=== PATIENT | male | born 1945 | race Caucasian/White ===

== ENCOUNTER 2023-09-29 09:27 | Outpatient (CLI) | payer MEDICARE, OTHER, SELFPAY ==
[2023-09-29 16:50] LABS: Anion Gap 11 mmol/L (8-16); Blood Urea Nitrogen 25 mg/dL (9-20); Calcium 8.9 mg/dL (8.4-10.2); Carbon Dioxide 22 mmol/L (22-30); Chloride 105 mmol/L (98-107); Estimated Glomerular Filt Rate 42; Glucose 110 mg/dL (65-110); Potassium 5.2 mmol/L (3.4-5.0); Sodium 138 mmol/L (137-145)
== END 2023-09-29 09:28 | disposition home or self-care (01) ==
LOC: ANHVADLAB 09:33 → ANHWCLAB 10:06
PROVIDERS: PCP Nurse Practitioner Family; Visit Provider Nurse Practitioner Family
DX: E11.9 Type 2 diabetes mellitus without complications (principal)
CPT/HCPCS: 36415; 80048

== ENCOUNTER 2025-02-28 10:02 | Emergency (ER) | payer MEDICARE, OTHER, SELFPAY ==
[2025-02-28 10:10] VITALS: BP 134/66; PULSE 80; RESP 16; TEMP 36.7; O2SAT 96
--- NOTE | 2025-02-28 10:17 | ED.WOUNDLAC ---
HPI - Wound/Laceration General Chief Complaint: Wound/Laceration Stated Complaint: Cat Bite/Left Thumb Time Seen by Provider: 02/28/25 10:28 Source: patient and RN notes reviewed Mode of arrival: ambulatory Limitations: dementia History of Present Illness HPI narrative: 79-year-old male presents with concern for cat bite to the 1st digit of his left hand. Reports the cat bit him last night, it is her daughter's cat. He reports he cleaned it and dressed it but it continued to bleed slightly. He reports it throbs overnight. Related Data Home Medications ?Medication ?Instructions ?Recorded ?Confirmed ?Last Taken ?Type lovastatin 40 mg tablet 40 mg PO QPM 03/19/20 02/28/25 Unknown History propafenone 150 mg tablet 150 mg PO TID 03/19/20 02/28/25 Unknown History rivaroxaban 20 mg tablet (Xarelto) 20 mg PO DAILY 03/19/20 02/28/25 Unknown History carvedilol 6.25 mg tablet 12.5 mg PO Q12H 02/26/21 02/28/25 Unknown History lisinopril 10 mg tablet 20 mg PO DAILY 04/22/22 02/28/25 Unknown History escitalopram oxalate 10 mg tablet 10 mg PO DAILY 07/29/22 02/28/25 Unknown History empagliflozin 25 mg tablet 25 mg PO DAILY 11/25/22 02/28/25 Unknown History Allergies Allergy/AdvReac Type Severity Reaction Status Date / Time No Known Allergies Allergy Verified 02/28/25 10:06 Review of Systems Review of Systems: CONSTITUTIONAL: Denies malaise, chills, sweats, or fever. EYES: Denies redness, or discharge. ENT: Denies rhinorrhea, congestion, swollen lips, swollen tongue CARDIOVASCULAR: Denies chest pain, palpitations, or edema. RESPIRATORY: Denies cough or dyspnea. GASTROINTESTINAL: Denies abdominal pain, nausea, vomiting SKIN: Reports laceration to the 1st digit of left hand caused by cat bite. Denies purulent drainage, vesicles, bullae, numbness, pain beyond proportion MUSCULOSKELETAL: Denies joint pain or myalgia. NEUROLOGIC: Denies headache. All systems reviewed & are unremarkable except as noted in HPI and below PMFSH Past Medical History Medical History Skin cancer basal cell carcinoma Atrial fibrillation Peripheral neuropathy Pure hypercholesterolemia, unspecified Type 2 diabetes mellitus with hyperglycemia, without long-term current use of insulin Hypertension Visual loss Hearing loss Surgical History Surgical History History of vasovasostomy Status post surgical removal of malignant neoplasm of skin x2 Family History Family History Father Family history of diabetes mellitus in first degree relative Family history of heart disease in male family member before age 55 Mother Family history of diabetes mellitus in first degree relative Sibling Family history of diabetes mellitus in first degree relative Social History Social History Smoking status: Never smoker Second hand tobacco smoke exposure: No Alcohol intake: current Alcohol use details: special occasions Substance use: never Do You Feel Safe in your Home?: Yes Lack of Transportation: No Lack of Food: Never True Current Housing: I Have Housing Concerned About Future Housing: No Difficulty Paying Gas/Electric Bills: No Difficulty Paying for Meds: No Currently Unemployed: No Education: Bachelor's Degree Difficulty w/ Childcare or Family Care: No Comments At time of signature, agree with nursing past medical, surgical, social and family history. There is no relevant family history pertinent to the presenting complaint Exam Narrative: GENERAL: Well-appearing, well-nourished, and in no acute distress. HEAD: Normocephalic, atraumatic. EYES: PERRLA, conjunctivae clear ENT: Mucous membranes moist. NECK: Supple. No lymphadenopathy CHEST: Clear to auscultation. No respiratory distress. HEART: Regular rate and rhythm. SKIN: Warm, dry. V-shaped laceration noted to the lateral 1st digit of the left hand with small amount of bleeding, laceration is not gaping, slightly approximated.. No surrounding Erythema, induration, tenderness, warmth with sharp margins noted. No vesicles, bullae, necrosis, ecchymosis, crepitus noted. NEURO: Alert and oriented x3. PSYCH: Normal mood and affect Course Course Emergency Course: Surgicel applied to wound until hemostasis achieved. Dressing applied. Patient is aware of diagnosis, understands and agrees to treatment plan. Anticipatory guidance given. Patient agrees to follow-up as directed and is aware of reasons to seek care at the emergency department. Portions of this record may have been created with voice recognition software Level of Care: Express Care Visit Vital Signs Vital signs: Vital Signs Temperature 98.1 F 02/28/25 10:10 Pulse Rate 80 02/28/25 10:10 Respiratory Rate 16 02/28/25 10:10 Blood Pressure 134/66 02/28/25 10:10 Pulse Oximetry 96 02/28/25 10:10 Oxygen Delivery Room Air 02/28/25 10:10 Temperature 98.1 F 02/28/25 10:10 Pulse Rate 80 02/28/25 10:10 Respiratory Rate 16 02/28/25 10:10 Blood Pressure 134/66 02/28/25 10:10 Pulse Oximetry 96 02/28/25 10:10 Oxygen Delivery Room Air 02/28/25 10:10 Reviewed. Critical Care Time Critical Care Time Critical Care Time: No Discharge Plan Discharge Clinical Impression: Cat bite Patient Disposition: Home Condition: Stable Instructions: Antibiotic Form, Animal Bite (ED) Additional Instructions: Leave the dressing in place for 24 hours. In 24 hours remove the outer layer of the dressing, soak your finger in warm soapy water to remove the inner layer of the dressing, do not pull it off as this may cause rebleeding. Elevating your hand will help prevent or stop bleeding, applying pressure for at least 15 minutes will help stop bleeding. If you are unable to stop bleeding despite any of these interventions you should go to the emergency room. If you notice any signs of infection such as redness, swelling, worsening pain you should return for reevaluation. Once your wound is stopped bleeding you should wash it gently with soap and water twice daily, apply antibiotic ointment twice daily. Keep your wound clean and dry, covered with a bandage until healed. Take antibiotic as directed. Please follow-up your primary care doctor for further evaluation of your finger. The urgent concerns such as increased redness, swelling, pain, purulence drainage despite taking antibiotics he should go to the emergency room Patient Language: Romanian Prescriptions: New amoxicillin-pot clavulanate 875-125 mg tablet 1 tablet PO Q12H 10 Days Qty: 20 0RF No Action empagliflozin 25 mg tablet 25 mg PO DAILY Ozempic 1 mg/dose (4 mg/3 mL) pen injector 1 mg subcut WEEKLY 90 Days Qty: 9 4RF Xarelto 20 mg tablet 20 mg PO DAILY Rx Instructions: must administer with evening meal propafenone 150 mg tablet 150 mg PO TID Rx Instructions: space evenly during waking hours lovastatin 40 mg tablet 40 mg PO QPM carvedilol 6.25 mg tablet 12.5 mg PO Q12H Rx Instructions: must administer with a meal/food lisinopril 10 mg tablet 20 mg PO DAILY escitalopram oxalate 10 mg tablet 10 mg PO DAILY metformin 500 mg tablet 500 mg PO BID Qty: 180 2RF Rx Instructions: WITH MEALS (DME) FreeStyle Lite Strips Strip See Rx Instructions .ROUTE .COMPLEX Qty: 100 1RF Dose Instruction: USE TO CHECK BLOOD SUGAR TWICE DAILY Rx Instructions: USE TO CHECK BLOOD SUGAR Once DAILY Follow-up/Referrals: PHYSICIAN NOT ON STAFF,NONSTAFF [Primary Care Provider] - Time of Disposition: 10:42
--- OUTSIDE RECORDS SUMMARY | 2025-02-28 11:06 | XMS_ITS | Encounter Summary ---
Author Name [facility] [place] [facility] [place] [facility] [place] Address [address] [place] [address] Care Team Providers Care Mixer Operator Tablets Name Role Phone SULMA GARRETT Primary Care [...] MEDIC ARE SUPPL EMENT Nov 23, 2010 [id number] [phone] PEGGY GUERRA PATIENT MEDICARE (WNR) MEDICARE (M) PART A Oct 23, 2010 PART A [id number] [phone] PEGGY GUERRA PATIENT MEDICARE (WNR) MEDICARE (M) PART B Oct 23, 2010 PART B [id number] [phone] PEGGY GUERRA PATIENT MEDICARE (WNR) MEDICARE (M) PART A Oct 23, 2010 PART A [id number] [phone] PEGGY GUERRA PATIENT MEDICARE (WNR) MEDICARE (M) PART B Oct 23, 2010 PART B [id number] [phone] PEGGY GUERRA PATIENT Selected Encounter This section includes the information on record at [place] for the Encounter. 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 Date/Time Primary/Secondary Diagnosis Diagnosis Name Provider Source Jun 24, 2024 01:21 PM PRIMARY Anxiety disorder due to known physiological condition INDIA MOHAN Linda [facility] Jun 24, 2024 01:21 PM SECONDARY Adjustment disorder with mixed anxiety and depressed mood INDIA MOHAN Linda [facility] Plan of Treatment: Future Appointments (+ 6 months) and Future Tests (+/- 45 days) The Plan of Treatment section includes future care activities for the patient [facility] [place] [facility] This section includes future appointments and future orders which are active, pending or scheduled. Future Appointments This section includes appointments that were scheduled to occur 6 months from the date of the Encounter, up to a maximum of 20 appointments. The data comes from all [place] treatment facilities. Appointment Date/Time Appointment Type Appointme nt Facility Name Aug 15, 2024 11:00 AM AMBULATORY - MEDICINE [facility] Oct 10, 2024 11:30 AM AMBULATORY - MEDICINE [facility] Dec 05, 2024 11:00 AM AMBULATORY - MEDICINE [facility] Social History: Smoking Status (Most current) and Tobacco Use (All prior to encounter date) This section includes the most current, and the historical, smoking and tobacco- related health factors from the [facility] facility where the Encounter took place. Current Smoking Status This section includes the most current smoking, or tobacco-related health factor, from the [facility] facility where the Encounter took place. Date/Time Current Smoking Status Comment Facil ity Oct 28, 2022 10:00 AM [place]-TOBACCO NEVER USED [facility] Tobacco Use History This section includes a history of the smoking, or tobacco-related health factors, that were collected on or before the date of the Encounter. The data comes from the [place] facility where the Encounter took place. Date/Time Smoking Status/Tobacco Use Comment F acility Oct 29, 2021 10:00 AM [place]-TOBACCO NEVER USED [facility] Oct 23, 2020 10:00 AM VA-TOBACCO FORMER USER [facility] Oct 23, 2020 10:00 AM VA-TOBACCO QUIT [address] [facility] Oct 10, 2019 03:41 PM VA-TOBACCO FORMER USER [facility] Oct 10, 2019 03:41 PM VA-TOBACCO QUIT [address] [facility] Advance Directives: All historical and current Section Date Range: From patient's date of to the date document was created. This section includes ALL of a patient's completed or amended [place] Advance and Rescinded Directives. The entries below indicate that a directive exists for the patient, but an actual copy is not included with this document. The data comes from all [place] facilities. Date Advance Directives Provider Source Oct 28, 2019 ADVANCE DIRECTIVE DISCUSSION Onur SHERMAN [facility] Encounter Notes: All associated encounter notes This section contains the clinical notes associated to the Encounter. Date/Time Encounter Note(s) Provider Source Jun 20, 2024 04:03 PM PSYCHOLOGY OUTPATI ENT NOTE: LOCAL TITLE: PRIMARY CARE PSYCHOLOGY NOTE [facility] STANDARD TITLE: PSYCHOLOGY OUTPATIENT NOTE DATE OF NOTE: JUN 20, 2024@16:03 ENTRY DATE: JUN 20, 2024@16:03:50 AUTHOR: INDIA MOHAN EXP COSIGNER: URGENCY: STATUS: COMPLETED Follow-up Template NAME: NAVEEN GUERRA DATE OF : Oct TIME SPENT WITH PATIENT: 30 minutes DIAGNOSIS BEING TREATED: MDD, D/T Hearing Loss Adjustment Disorder w/Anxiety and depression CPT Code: 72801 NATURE OF ENCOUNTER: follow up visit SESSION FORMAT: [X] [id number] [ ] Video Telehealth [ ]Phone Confirmed [place]'s location and phone number for virtual appointment. [ ]Yes [ ]N/A NOTE: Use separate CVT template, if appropriate SESSION NUMBER: 10 INTERVENTION/TREATMENT PROVIDED [X] [place] [facility] [X] Shared [...] to better understand current presenting concerns. - [place] strategies to promote healthy lifestyle choices - Provided psychoeducation about CBT and the connection of thoughts and behaviors. RELEVANT HISTORICAL DEVELOPMENTS SINCE LAST CONTACT: NOTE: Describe relevant historical developments below Alanna indicated he is starting to feel the impact of working hard in his chart. Celeste reported he is unable to work as long as hard as he used to, given now it takes him several days to recover. This provider discussed with [place] the importance of pacing, to minimize the length of time needed for recovery. Briefly discussed 's finances and his inability to quit working due to significant financial strain. This provider discussed briefly the option of pension. Alanna on the surface meets criteria for a VA pension and was accepting of the application. indicated within the next 8 months his pension from his [employer] career will be ending. Celeste is unsure what he and his will do next. reported his has been recovering well. He reported this is also a major source of stress for him given her frail condition. Discussed the importance of having balance with the pleasurable activities and work. 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 RTC entered for follow-up. ASSESSMENT MEASURES USED: [ ] Measure in Mental Health Plant Operator/Shift Supervisor. See accompanying Mental Health Diagnostic Study for details. [ ] Measure(s) sent via [facility], electronically following visit. [place] agrees to asynchronous electronic administration; when returned, measure results will be included in a note or addendum in CPRS [ ] Other Measures: Measure: Score: Measure: Score: [ ] N/A: Not administered this session Date/Score of last administration: [X]Functional/Symptom Assessment: Symptom(s)/Function(s) tracked by mood on scale of 1-10 Changes in frequency, intensity or duration since last visit: 5- slight regression, described as a overwhelmed . Collaboratively discussed outcomes related to assessment and [...] GOAL: RESPONSE TO INTERVENTIONS: Veterans participation/engagement: [X]The [place] participated actively in the current interventions. [ ]Other: The continues to consent to the current plan of care: Yes Comments: RISK ASSESSMENT: [X] NO CHANGE IN RISK FACTORS Related to Suicide or Homicide. [place] did not report any current suicidal/homicidal ideation, plan, or intent. did not appear to be at imminent risk for suicide or homicide at this time and is considered sustainable at the current level of care. [ ] NEW/UPDATED RISK ASSESSMENT: -RELEVANT RISK AND PROTECTIVE FACTORS: -IDEATION: [ ] denied current suicidal or homicidal ideation, plan, or intent. [x ] Suicidal or homicidal ideation/behavior WAS identified: vet endorsed fleeting ideations in the context of his -CLINICAL JUDGMENT AND DISPOSITION: [ ] In consideration of relevant risk and protective factors, the [place] did NOT appear to be at imminent risk for suicide or homicide at this time and IS sustainable at the current level of care. -Comments: [ ] [place] IS considered to be at INCREASED RISK for suicide or homicide based upon: -Actions/interventions taken to address risk and prevent harm include: -Emergency protocols initiated were: -Comments: ASSIGNED WORK: RTC entered for ongoing support. COLLABORATIVE RECOMMENDATIONS/PLAN: Collaboratively discussed outcomes related to assessment and treatment progress. Based on this discussion: Vet agreed to ongoing services. /roberto/ [place] Mohan Psy.D. Staff Psychologist Signed: 06/24/2024 13:21 INDIA MOHAN [facility]
--- OUTSIDE RECORDS SUMMARY | 2025-02-28 11:07 | XMS_ITS | Clinical Summary ---
Author Organization [facility] Address [address] [place] [address] Care Team Providers Care Communication Lecturer Name Role Phone Jose Melton MD Unavailable [phone] Yonas Chapa MD Primary Care Provider [phone] Source Comments [facility],non-owned Affiliates and Associated Physician Practices is [facility] consisting of ambulatory clinics and hospital sitesin [place], [place], [place] and [place]. This disclosure is being madepursuant to the Care Everywhere program and may not contain all information available regarding this patient. Last updated 18.[facility] Allergies No known active allergies Medications * Be aware that medications may not be up to date on this document. Alwaysverify current medications with the patient. Medication Sig Dispensed Refills Start Date End Date Status glyburide-metformi n (GLUCOVANCE) 2.5-500 MG tablet Take 1 (one) tablet by mouth 2 times daily with morning and evening meal Take with food. Active lisinopril (PRINIVIL; ZESTRIL) 10 MG tablet Take 2 (two) tablets by mouth once daily Active pravastatin (PRAVACHOL) 40 MG tablet Take 1 (one) tablet by mouth once daily Active multivitamin daily (THERAGRAN) tablet Take 1 (one) tablet by mouth daily with food Active glimepiride (AMARYL) 2 MG tablet Take 1 (one) tablet by mouth daily with breakfast Active lovastatin (MEVACOR) 40 MG tablet Take 1 (one) tablet by mouth at bedtime Active metFORMIN (GLUCOPHAGE) 500 MG tablet Take 1 (one) tablet by mouth 2 times daily with morning and evening meal Active nabumetone (RELAFEN) 750 MG tablet TAKE ONE TABLET BY MOUTH TWICE DAILY 180 tablet 3 09/11/2017 Active Additional Information Patient not taking.Reported on 07/18/2024 rivaroxaban (XARELTO) 20 MG tablet TAKE ONE TABLET BY MOUTH ONCE A DAY TO THIN BLOOD. TAKE WITH FOOD. 11/01/2019 Active amiodarone (CORDARONE) 200 MG tablet TAKE ONE-HALF TABLET BY MOUTH ONCE A DAY 10/25/2019 Active carvedilol (COREG) 12.5 MG tablet TAKE ONE-HALF TABLET BY MOUTH TWICE A DAY 10/25/2019 Active fluticasone propionate (FLONASE) 50 MCG/ACT nasal spray INSTILL 1 SPRAY IN EACH NOSTRIL ONCE A DAY 10/25/2019 Active propafenone (RYTHMOL) 150 MG tablet Take 1 (one) tablet by mouth 3 times daily 08/07/2020 Active Semaglutide(0.25 or 0.5MG/DOS) 2 MG/3ML Solution Pen-injector SEMAGLUTIDE 0.25MG/0.375ML INJ,SOLN,PEN,3ML Active INJECT 0.5MG UNDER THE SKIN EVERY WEEK FOR DIABETES Mar 09, 2024 1 Mar 10, 2025 [id number] May 30, 2024 STEVE WALKER [facility] 03/09/2024 Active FREESTYLE LITE STRIPS test strip USE TO MONITOR BLOOD SUGAR ONCE DAILY 06/28/2024 Active escitalopram (Lexapro) 20 MG tablet Take 0.5 (one-half) tablet by mouth 03/31/2024 Active empagliflozin (Jardiance) 25 MG tablet Take 1 (one) tablet by mouth 10/27/2023 Active Hospital, Clinic, or Other Facility Administered Medication Ordered Dose Route Frequency Start Date End Date Status triamcinolone acetonide (Kenalog-40) injection 20 mgIndications:Primary osteoarthritis of first carpometacarpal joint of right hand 20 mg IX ONCE 02/21/2025 02/21/2025 Ended Active Problems Problem Noted Date Diagnosed Date Obstructive sleep apnea syndrome 09/05/2020 Atrial fibrillation 09/05/2020 Health education 09/05/2020 Encounter for therapeutic drug level monitoring 09/05/2020 Benign essential hypertension 09/05/2020 Hyperlipidemia 09/05/2020 Obesity 09/05/2020 Sensory hearing loss 09/05/2020 Hypertension 04/08/2014 Overview (09/05/2020): HYPERTENSION NOS Pure hypercholesterolemia 04/08/2014 Overview (09/05/2020): PURE HYPERCHOLESTEROLEM Type 2 diabetes mellitus 04/08/2014 Overview (09/05/2020): DMII WO CMP NT [facility] Encounters Date Type Department Care Team Description 02/21/2025 1:40 PM CDT Office Visit [facility] [address] [place] [address] Nadja Madrid MD Primary osteoarthritis of first carpometacarpal joint of right hand (Primary Dx) 01/16/2025 11:30 AM MYSTERY SHOPPER Office Visit [facility] [address] [place] [address] Veronika Ortega PA Primary osteoarthritis of right knee (Primary Dx) from Last 3 Months Social History Tobacco Use Types Packs/Day Years Used Date Smoking Tobacco: Never Smokeless Tobacco: Never Tobacco Cessation:Counseling Given: Not Answered Alcohol Use Standard Drinks/Week Comments No 0 (1 standard drink = 0.6 oz pur e alcohol) PHQ-2 Answer Date Recorded Patient Health Questionnaire-2 Score 3 07/18/2024 Sex and Gender Information Value Date Recorded Sex Assigned at Not on file Gender Identity Not on file Sexual Orientation Not on file Last Filed Vital Signs Vital Sign Reading Time Taken Comments Blood Pressure 160/80 09/05/2020 8:04 AM CDT Pulse 68 09/05/2020 8:04 AM CDT Temperature 36.4 C (97.6 F) 12/29/2013 9:00 AM MYSTERY SHOPPER Respiratory Rate 20 12/29/2013 9:25 AM MYSTERY SHOPPER Oxygen Saturation 92% 12/29/2013 9:25 AM MYSTERY SHOPPER Inhaled Oxygen Concentration - - Weight 95.3 kg (210 lb) 07/18/2024 9:36 AM CDT Height 172.7 cm (5' 8 ) 07/18/2024 9:36 AM CDT Body Mass Index 31.93 07/18/2024 9:36 AM CDT Plan of Treatment Upcoming Encounters Date Type Department Care Team (Late st Contact Info) Description 04/24/2025 11:30 AM CDT Office Visit [facility] [address] [place] [address] Veronika Ortega, PA [address] [place] [address] Health Maintenance Due Date Last Done Comments MEDICARE AWV 12 MONTHS 1945 DIABETES-SERUM CREATININE 1963 DTAP/TDAP/TD VACCINES (1 - Tdap) 1964 PNEUMOCOCCAL VACCINE 50+ (1 of 2 - PCV) 1964 ZOSTER VACCINE (1 of 2) 1995 DIABETES RETINOPATHY SCREENING 09/05/2020 DIABETES-FOOT EXAM WITH MONOFILAMENT 09/05/2020 DIABETES-HGB A1C 09/05/2020 Respiratory Syncytial Virus (RSV) Vaccine Pt: or over 60 yrs (1 - 1-dose 75+ series) 2020 COVID-19 VACCINE ( - season) 2024 DEPRESSION SCREENING 11/23/2024 DIABETES - URINE PROTEIN SCREENING 11/23/2024 INFLUENZA VACCINE (Season Ended) 2025 08/23/2023, 09/16/2021, 10/03/2020, Additional history exists HEPATITIS B VACCINE Aged Out No longe r eligible based on patient's age to complete this topic HIB VACCINE Aged Out No longer eligi ble based on patient's age to complete this topic HPV VACCINE Aged Out No longer eligi ble based on patient's age to complete this topic MENINGOCOCCAL (Group B) VACCINE SHARED DECISION-MAKING Aged Out No longer eligible based on patient's age to complete this topic MENINGOCOCCAL GROUPS A/C/Y/W VACCINE Aged Out No longer eligible based on patient's age to complete this topic Care Teams Communication Lecturer Relationship Specialty Start Date End Date Yonas Chapa MD [id number] [place] [address] PCP - General 09/05/20 [place] [id number] [facility] [address] [place] [address] Orthopedic Surgery 09/09/16
--- OUTSIDE RECORDS SUMMARY | 2025-02-28 11:07 | XMS_ITS ---
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, bilateral legs I70.203 Assessments Encounter Date Diagnosis (ICD Code) Assessment Notes Treatment Notes Treatment Clinical Notes Section Notes 10/06/2024 Onychomycosis (ICD-10 - B35.1) 10/06/2024 Pain in right toe(s) (ICD-10 - M79.674) 10/06/2024 Pain in left toe(s) (ICD-10 - M79.675) 10/06/2024 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, bilateral legs (ICD-10 - I70.203) 10/06/2024 Other Nails 1-5 Bilateral were debrided extensively with nail nippers and emery board, reducing length and girth to pink healthy tissue with any subungual debris and necrotic tissue removed Plan Of Treatment Treatment Notes Assessment Notes Other Nails 1-5 Bilateral were debrided extensively with nail nippers and emery board, reducing length and girth to pink healthy tissue with any subungual debris and necrotic tissue removed Next Appt Details Follow Up: 9 weeks, Reason: Provider Name:RADHA BAXTER, 05/04/2025 09:20:00 AM, [address], [facility], [place], [place], [id number], Progress Notes * NAVEEN GUERRADOB:[birth year] (78 yo M)Acc No.[id number]:10/06/2024 Patient: NAVEEN VALENTIN Provider: Beatrice Forrest DPM :1945 A ge:78 Y S ex:Male Date:10/06/2024 Address:[address] [place], [place] [id number] Subjective: * Chief Complaints: * * General care * HPI: H PI: General care P atient presents to the office for diabetic foot care. Patient states that their nails are thickened, elongated and painful. Patient states that it is aggravated by shoe gear. Onset is gradual., Patient is taking prescription blood thinners., Date last seen by Dr. Chapa was 11/2023., Initials beg. * ROS: G eneral / Constitutional: Patient denies c hange in appetite, fatigue, chills, fever.? C ardiovascular: Chest pain d enies. N eurologic: Loss of use of extremity d enies. * Medical History: * Surgical History: * Hospitalization/Major Diagno stic Procedure: * Medications: Objective: * Vitals: * Examination: P hysical Examination: Gen: T he patient is awake, alert, well developed, well groomed and well nourished. They are in no apparent distress. . Musc: F oot structure is normal bilateral. Muscle strength is 5/5 to all joints bilaterally. There is no pain on palpation. . Derm: T here is absent hair growth on bilateral feet. There are pigmentary changes of bilateral foot. The skin color is red. The skin texture is thin and shiny. Distal cooling noted in bilateral feet. Nails are thick, discolored, and dystrophic with subungual debris. They are painful to palpation. . Neuro: G rossly intact to light touch bilateral . Vasc: P osterior tibialis pulse 0/4 bilaterally. Dorsalis pedis pulse 0/4 bilaterally. No edema noted. Capillary fill time > 3 seconds to all digits. . Assessment: * Assessment: 1. O nychomycosis - B35.1 (Primary) 2 . P ain in right toe(s) - M79.674? 3. P ain in left toe(s) - M79.675 4 . U nspecified atherosclerosis of morongo arteries of extremities, bilateral legs - I70.203 Plan: * Treatment: * Procedure Codes: 1 1721 DEBRIDE NAIL, 6 OR MORE, Modifiers: Q8 * Follow Up: 9 weeks * Billing Information: * Visit Code: * Procedure Codes: 13735 DEBRIDE NAIL, 6 OR MORE. Modifiers: Q8 * VISION HOST Sign off status: Completed true * Provider: Beatrice Forrest DPM Date: 12/06/2023 Generated for Ofelia sanches/Laverne/Stephanie on: 0 02/28/2025 11:07 AM CDT History and Physical Notes * HPI (History of Present Illness) Category Sub-Category Detail Notes Category Not es HPI General care Patient presents to the office for diabetic foot care. Patient states that their nails are thickened, elongated and painful. Patient states that it is aggravated by shoe gear. Onset is gradual., Patient is taking prescription blood thinners., Date last seen by Dr. Chapa was 11/2023., Initials beg Examination Category Sub-Category Detail Notes Category Not es Physical Examination Gen: The patient is awake, alert, well developed, well groomed and well nourished. They are in no apparent distress. Vasc: Posterior tibialis p ulse 0/4 bilaterally. Dorsalis pedis pulse 0/4 bilaterally. No edema noted. Capillary fill time > 3 seconds to all digits. Neuro: Grossly intact to li ght touch bilateral Musc: Foot structure is no rmal bilateral. Muscle strength is 5/5 to all joints bilaterally. There is no pain on palpation. Derm: There is absent hair growth on bilateral feet. There are pigmentary changes of bilateral foot. The skin color is red. The skin texture is thin and shiny. Distal cooling noted in bilateral feet. Nails are thick, discolored, and dystrophic with subungual debris. They are painful to palpation.
--- OUTSIDE RECORDS SUMMARY | 2025-02-28 11:07 | XMS_ITS | Encounter Summary ---
Author Name [facility] Organization [facility] [place] Address [address] [place] [address] Care Team Providers Care Cement Side Laster Name Role Phone SULMA GARRETT Primary Care [...] MEDIC ARE SUPPL EMENT Nov 23, 2010 [id number] [phone] PEGGY GUERRA PATIENT MEDICARE (WNR) MEDICARE (M) PART A Oct 23, 2010 PART A [id number] [phone] PEGGY GUERRA PATIENT MEDICARE (WNR) MEDICARE (M) PART B Oct 23, 2010 PART B [id number] PEGGY GUERRA PATIENT MEDICARE (WNR) MEDICARE (M) PART A Oct 23, 2010 PART A [id number] [phone] PEGGY GUERRA PATIENT MEDICARE (WNR) MEDICARE (M) PART B Oct 23, 2010 PART B [id number] [phone] PEGGY GUERRA PATIENT Selected Encounter This section includes the information on record at [place] for the Encounter. Date/Time Encounter Type Encounter [...] cond w depressv features [place] Linda [facility] Dec 05, 2024 01:05 PM SECONDARY Adjustment disorder with mixed anxiety and depressed mood INDIA MOHAN [facility] Plan of Treatment: Future Appointments (+ 6 months) and Future Tests (+/- 45 days) The Plan of Treatment section includes future care activities for the patient from all [place] [facility]. This section includes future appointments and future orders which are active, pending or scheduled. Future Appointments This section includes appointments that were scheduled to occur 6 months from the date of the Encounter, up to a maximum of 20 appointments. The data comes from all [facility]. Appointment Date/Time Appointment Type Appointme nt Facility Name Jan 23, 2025 01:30 PM AMBULATORY - NONE [facility] Jan 23, 2025 01:31 PM AMBULATORY - NONE [facility] Jan 23, 2025 02:00 PM [facility] Mar 20, 2025 10:00 AM AMBULATORY - MEDICINE [facility] Active, Pending, and Scheduled Orders This section includes a listing of several types of active, pending, and scheduled orders, including clinic medications orders, diagnostic test orders, procedure orders and consult orders; where the start date of the order is 45 days before the date of the Encounter or 45 days after the date of theEncounter. The data comes from all [facility]. Test Date/Time Test Type Test Details Facility Name Jan 11, 2025 12:00 AM Laboratory - Chemi stry Order HGB,HCT,PLT [facility]LOOD [facility] Jan 11, 2025 12:00 AM Laboratory - Chemi stry Order CREATININE(EGFR) GREEN LI/HEP BLD/PLAS PLASMA SP [facility] Jan 11, 2025 12:00 AM Laboratory - Chemi stry Order AST/SGOT GREEN LI/HEP BLD/PLAS PLASMA SP [facility] Jan 11, 2025 12:00 AM Laboratory - Chemi stry Order ALT/SGPT GREEN LI/HEP BLD/PLAS PLASMA SP [facility] Social History: Smoking Status (Most current) and Tobacco Use (All prior to encounter date) This section includes the most current, and the historical, smoking and tobacco- related health factors from the [place] facility where the Encounter took place. Current Smoking Status This section includes the most current smoking, or tobacco-related health factor, from the [place] facility where the Encounter took place. Date/Time Current Smoking Status Comment Facil ity Oct 28, 2022 10:00 AM VA-TOBACCO NEVER USED [facility] Tobacco Use History This section includes a history of the smoking, or tobacco-related health factors, that were collected on or before the date of the Encounter. The data comes from the [place] facility where the Encounter took place. Date/Time Smoking Status/Tobacco Use Comment F acility Oct 29, 2021 10:00 AM VA-TOBACCO NEVER USED [facility] Oct 23, 2020 10:00 AM VA-TOBACCO [...] ALL of a patient's completed or amended [place] Advance and Rescinded Directives. The entries below indicate that a directive exists for the patient, but an actual copy is not included with this document. The data comes from all [place] facilities. Date Advance Directives Provider Source Oct 28, 2019 ADVANCE DIRECTIVE DISCUSSION Onur SHERMAN [facility] Encounter Notes: All associated encounter notes This section contains the clinical notes associated to the Encounter. Date/Time Encounter Note(s) Provider Source Dec 05, 2024 11:18 AM PSYCHOLOGY OUTPATI ENT NOTE: LOCAL TITLE: PRIMARY CARE PSYCHOLOGY NOTE [facility] STANDARD TITLE: PSYCHOLOGY OUTPATIENT NOTE DATE OF NOTE: DEC 05, 2024@11:18 ENTRY DATE: DEC 05, 2024@11:18:54 AUTHOR: [place] M[place]AN COSIGNER: URGENCY: STATUS: COMPLETED Follow-up Template NAME: NAVEEN GUERRA DATE OF : Oct TIME SPENT WITH PATIENT: 30 minutes DIAGNOSIS BEING TREATED: MDD, D/T Hearing Loss Adjustment Disorder w/Anxiety and depression CPT Code: 90663 NATURE OF ENCOUNTER: follow up visit SESSION FORMAT: [X] Tobs-ta-Deik [ ] Video Telehealth [ ]Phone Confirmed Harvest's location and phone number for virtual appointment. [...] to better understand current presenting concerns. - [place] strategies to promote healthy lifestyle choices - Provided psychoeducation about CBT and the connection of thoughts and behaviors. RELEVANT HISTORICAL DEVELOPMENTS SINCE LAST CONTACT: NOTE: Describe relevant historical developments below Alanna had a slip and fall at work on 12/01/2024 on black ice and bruised himself pretty bad. Cherry reported his continues to improve. 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 See accompanying Mental Health Diagnostic Study for details. [ ] Measure(s) sent via [facility], electronically following visit. agrees to asynchronous electronic [...] GOAL: RESPONSE TO INTERVENTIONS: Veterans participation/engagement: [X]The [facility] participated actively in the current interventions. [ ]Other: The continues to consent to the current plan of care: Yes Comments: RISK ASSESSMENT: [X] NO CHANGE IN RISK FACTORS Related to Suicide or Homicide. did not report any current suicidal/homicidal ideation, plan, or intent. Harvest did not appear to be at imminent [...] current level of care. -Comments: [ ] Harvest IS considered to be at INCREASED RISK for suicide or homicide based upon: -Actions/interventions taken to address risk and prevent harm include: -Emergency protocols initiated were: -Comments: ASSIGNED WORK: RTC entered for ongoing support. COLLABORATIVE RECOMMENDATIONS/PLAN: Collaboratively discussed outcomes related to assessment and treatment progress. Based on this discussion: Vet agreed to ongoing services. /roberto/ [place] Mohan, Psy.D. Staff Psychologist Signed: 12/05/2024 13:05 [place] [facility]
--- OUTSIDE RECORDS SUMMARY | 2025-02-28 11:07 | XMS_ITS | Encounter Summary ---
Author Name [facility] [place] [facility] [place] [facility] [place] Address [address] [place] [address] Care Team Providers Care Well Tester Name Role Phone SULMA GARRETT Primary Care [...] MEDIC ARE SUPPL EMENT Nov 23, 2010 [id number] [phone] PEGGY GUERRA PATIENT MEDICARE (WNR) MEDICARE (M) PART A Oct 23, 2010 PART A [id number] [phone] PEGGY GUERRA PATIENT MEDICARE (WNR) MEDICARE (M) PART B Oct 23, 2010 PART B [id number] PEGGY GUERRA PATIENT MEDICARE (WNR) MEDICARE (M) PART A Oct 23, 2010 PART A [id number] [phone] PEGGY GUERRA PATIENT MEDICARE (WNR) MEDICARE (M) PART B Oct 23, 2010 PART B [id number] PEGGY GUERRA PATIENT Selected Encounter This section includes the information on record at [place] for the Encounter. Date/Time Encounter Type Encounter [...] physiol cond w depressv features [place] [facility] Plan of Treatment: Future Appointments (+ 6 months) and Future Tests (+/- 45 days) The Plan of Treatment section includes future care activities for the patient [facility]. This section includes future appointments and future orders which are active, pending or scheduled. Future Appointments This section includes appointments that were scheduled to occur 6 months from the date of the Encounter, up to a maximum of 20 appointments. The data comes from all [place] treatment facilities. Appointment Date/Time Appointment Type Appointme nt Facility Name Mar 20, 2025 10:00 AM AMBULATORY - MEDICINE [facility] Active, Pending, and Scheduled Orders This section includes a listing of several types of active, pending, and scheduled orders, including clinic medications orders, diagnostic test orders, procedure orders and consult orders; where the start date of the order is 45 days before the date of the Encounter or 45 days after the date of theEncounter. The data comes from all [facility]. Test Date/Time Test Type Test Details Facility Name Jan 11, 2025 12:00 AM Laboratory - Chemi stry Order HGB,HCT,PLT BLOOD SP [facility] Jan 11, 2025 12:00 AM Laboratory - Chemi stry Order CREATININE(EGFR) GREEN LI/HEP BLD/PLAS PLASMA SP [facility] Jan 11, 2025 12:00 AM Laboratory - Chemi stry Order AST/SGOT GREEN LI/HEP BLD/PLAS PLASMA [facility] Jan 11, 2025 12:00 AM Laboratory - Chemi stry Order ALT/SGPT GREEN LI/HEP BLD/PLAS PLASMA SP [facility] Lab Results: +/- 30 days of the encounter This section includes the Chemistry and Hematology Lab Results [facility] with [facility] for the [facility]. Radiology Reports and Pathology Reports are provided separately, in subsequent sections. Lab Results This section contains the Chemistry/Hematology Results that were resulted 30 days before or 30 daysafter the date of the Encounter. Date/Time Source Result Type Result - Unit Interpretation Reference Range Comment Jan 23, 2025 01:15 PM [facility] LIPID PANEL (STL) Specimen Type: PLASMA Comment: No hemolysis noted. Ordering Provider: SULMA GARRETT Report Released Date/Time: Jan 23, 2025 01:06 PM Reporting Lab: [address] [phone] Performing Lab: [address] [phone] CHOLESTEROL 184 mg/dL 0-200 TRIGLYCERIDE 140 mg/dL 0-150 CALCULATED LDL 97 mg/dL HDL(New) 59 mg/dL >40 Jan 23, 2025 01:15 PM [facility] HGA1C Specimen Type: BLOOD No comment entered. Ordering Provider: SULMA GARRETT Report Released Date/Time: Jan 23, 2025 01:06 PM Reporting Lab: [address] [phone] Performing Lab: [address] [phone] HGA1C 8.1 H 4.0-6.0 Jan 23, 2025 01:15 PM [facility] COMPREHENSIVE METABOLIC PANEL Specimen Type: PLASMA Comment: No hemolysis noted. Ordering Provider: SULMA GARRETT Report Released Date/Time: Jan 23, 2025 01:06 PM Reporting Lab: [address] [phone] Performing Lab: [address] [phone] CREATININE 1.40 mg/dL H 0.7-1.3 UREA NITROGEN [...] 51.1 >60 Jan 23, 2025 01:15 PM [facility] CBC Specimen Type: BLOOD No comment entered. Ordering Provider: SULMA GARRETT Report Released Date/Time: Jan 23, 2025 01:06 PM Reporting Lab: [facility] [address] [facility] [phone] Performing Lab: [facility] [address] [facility] [address] WBC 7.8 10*3/uL 3.6-11.2 RBC 4.49 10*6/uL 4.10-5.70 HGB 14.4 g/dL 13.1-16.8 HCT 44.6 38.2-48.4 MCV 99.3 fL 80.0-100.0 MCH 32.1 pg 27.0-34.0 MCHC 32.3 g/dL L 33.0-36.0 PLT 319 10*3/uL 150-400 MPV 9.4 fL 7.5-11.2 RDW 13.0 11.8-15.1 LYMPHOCYTES, AUTO % 18 MONOCYTES, AUTO % 8 NEUTROPHILS, AUTO % 72 EOSINOPHILS, AUTO % 2 BASOPHILS, AUTO % 0 LYMPHOCYTES, ABSOLUTE 1.39 10*3/uL 0.77-4.50 MONOCYTES, ABSOLUTE 0.61 10*3/uL 0.19-0.80 NEUTROPHILS, ABSOLUTE 5.62 10*3/uL 2.10-8.00 EOSINOPHILS, ABSOLUTE 0.13 10*3/uL 0.00-0.60 BASOPHILS, ABSOLUTE 0.03 10*3/uL 0.00-0.20 Jan 23, 2025 01:15 PM [facility] VITAMIN D, 25-HYDROXY Specimen Type: SERUM No comment entered. Ordering Provider: SULMA GARRETT Report Released Date/Time: Jan 23, 2025 01:06 PM Reporting Lab: [facility] [address] [place] [phone] Performing Lab: [facility] [address] [place] [phone] VITAMIN D, 25-HYDROXY 36.3 ng/mL 30-96 Jan 23, 2025 01:15 PM [facility] TSH W/ REFLEX FT4 (STL) Specimen Type: PLASMA No comment entered. Ordering Provider: SULMA GARRETT Report Released Date/Time: Jan 23, 2025 01:06 PM Reporting Lab: [facility] [address] [place] [phone] Performing Lab: [address] [phone] TSH 1.164 u[IU]/mL 0.47-5 Jan 23, 2025 01:15 PM [facility] MICRAL/CREAT PROFILE (STL) Specimen Type: URINE No comment entered. Ordering Provider: SULMA GARRETT Report Released Date/Time: Jan 23, 2025 01:06 PM Reporting Lab: [facility] [address] [place] [phone] Performing Lab: [facility] [address] [place] [phone] URINE ALBUMIN (PB-STL) 5.8 mg/L uACR (STL) 11 mg/g 0-29 CREATININE URINE/OTHERS 51.0 mg/dL L 63-166 Vital Signs: All taken on the encounter date This section contains inpatient and outpatient Vital Signs collected on the date of the Encounter. Date/Time Temperature Pulse Blood Pressure Respiratory Rate SP02 Pain Height Weight Body Mass Index Source Jan 23, 2025 01:36 PM 136/76 [facility] Jan 23, 2025 01:33 PM 97.6 68 137/74 18 95 0 68 216 33 [facility] Social History: Smoking Status (Most current) and Tobacco Use (All prior to encounter date) This section includes the most current, and the historical, smoking and tobacco- related health factors from the [place] facility where the Encounter took place. Current Smoking Status This section includes the most current smoking, or tobacco-related health factor, from the [place] facility where the Encounter took place. Date/Time Current Smoking Status Comment Brandt zepeda Jan 23, 2025 01:30 PM VA-TOBACCO NEVER USED CIGARETTES [facility] Tobacco Use History This section includes a history of the smoking, or tobacco-related health factors, that were collected on or before the date of the Encounter. The data comes from the [place] facility where the Encounter took place. Date/Time Smoking Status/Tobacco Use Comment Ralph benavides Jan 23, 2025 01:30 PM VA-TOBACCO NEVER USED OTHER TYPE [facility] Oct 28, 2022 10:00 AM VA-TOBACCO NEVER USED [facility] Oct 29, 2021 10:00 AM VA-TOBACCO NEVER USED [facility] Oct 23, 2020 10:00 AM VA-TOBACCO FORMER USER [facility] Oct 23, 2020 10:00 AM VA-TOBACCO QUIT 15 YRS OR MORE [facility] Oct 10, 2019 03:41 PM VA-TOBACCO FORMER USER [facility] Oct 10, 2019 03:41 PM VA-TOBACCO QUIT 15 YRS OR MORE [facility] Advance Directives: All historical and current Section Date Range: From patient's date of to the date document was created. This section includes ALL of a patient's completed or amended CT Advance and Rescinded Directives. The entries below indicate that a directive exists for the patient, but an actual copy is not included with this document. The data comes from all [place] facilities. Date Advance Directives Provider Source Oct 28, 2019 ADVANCE DIRECTIVE DISCUSSION Onur SHERMAN [facility] Encounter Notes: All associated encounter [...] Adjustment Disorder w/Anxiety and depression CPT Code: 58928 NATURE OF ENCOUNTER: follow up visit SESSION FORMAT: [X] [id number] [ ] Video Telehealth [ ]Phone Confirmed [...] no intent or desire to harm himself. Celeste explained how his kimberley would not allow such thought to even fully form. Discussed gloom and doom/despair and best ways to work through these traps. ASSESSMENT MEASURES USED: [ ] Measure in Mental Health Working Second Hand. See accompanying Mental Health Diagnostic Study for details. [ ] Measure(s) sent via [facility], electronically following visit. Raven agrees to asynchronous electronic administration; when returned, [...] and process does wonders for his depression. Vet feels he is making progress overall as long as he is able to have monthly supportive sessions. 2. GOAL/OBJECTIVES: PROGRESS TOWARDS GOAL: 3. GOAL/OBJECTIVES: PROGRESS TOWARDS GOAL: RESPONSE TO INTERVENTIONS: Veterans participation/engagement: [X]The Raven participated actively in the current interventions. [ ]Other: The continues to consent to the current plan of care: Yes Comments: RISK ASSESSMENT: [X] NO CHANGE IN RISK FACTORS Related to Suicide or Homicide. Raven did not report any current suicidal/homicidal ideation, plan, or intent. Raven did not appear to be at imminent [...] of relevant risk and protective factors, the Raven did NOT appear to be at imminent [...] Psy.D. Staff Psychologist Signed: 01/23/2025 15:31 [facility]
--- OUTSIDE RECORDS SUMMARY | 2025-02-28 11:07 | XMS_ITS | Encounter Summary ---
Author Name [facility] [place] [facility] [place] Address [address] [place] [address] Care Team Providers Care Hosiery Pairer Name Role Phone SULMA GARRETT Primary Care [...] MEDIC ARE SUPPL EMENT Nov 23, 2010 [id number] [phone] PEGGY GUERRA PATIENT MEDICARE (WNR) MEDICARE (M) PART A Oct 23, 2010 PART A [id number] PEGGY GUERRA PATIENT MEDICARE (WNR) MEDICARE (M) PART B Oct 23, 2010 PART B [id number] PEGGY GUERRA PATIENT MEDICARE (WNR) MEDICARE (M) PART A Oct 23, 2010 PART A [id number] PEGGY GUERRA PATIENT MEDICARE (WNR) MEDICARE (M) PART B Oct 23, 2010 PART B [id number] [phone] PEGGY GUERRA PATIENT Selected Encounter This section includes the information on record at [place] for the Encounter. 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 This section includes future appointments and future orders which are active, pending or scheduled. Future Appointments This section includes appointments that were scheduled to occur 6 months from the date of the Encounter, up to a maximum of 20 appointments. The data comes from all [place] treatment facilities. Appointment Date/Time Appointment Type Appointme nt Facility Name Dec 05, 2024 11:00 AM AMBULATORY - MEDICINE [facility] Jan 23, 2025 01:30 PM AMBULATORY - NONE [facility] Jan 23, 2025 01:31 PM AMBULATORY - NONE [facility] Jan 23, 2025 02:00 PM [facility] Mar 20, 2025 10:00 AM [facility] MEDICINE [facility] Social History: Smoking Status (Most current) and Tobacco Use (All prior to encounter date) This section includes the most current, and the historical, smoking and tobacco- related health factors from the [place] facility where the Encounter took place. Current Smoking Status This section includes the most current smoking, or tobacco-related health factor, from the [place] facility where the Encounter took place. Date/Time Current Smoking Status Rehan zepeda Oct 28, 2022 10:00 AM VA-TOBACCO NEVER USED [facility] Tobacco Use History This section includes a history of the smoking, or tobacco-related health factors, that were collected on or before the date of the Encounter. The data comes from the [place] facility where the Encounter took place. Date/Time Smoking Status/Tobacco Use Comment F acility Oct 29, 2021 10:00 AM VA-TOBACCO NEVER USED [facility] Oct 23, 2020 10:00 AM VA-TOBACCO FORMER USER [facility] Oct 23, 2020 10:00 AM VA-TOBACCO QUIT 15 YRS OR MORE [facility] Oct 10, 2019 03:41 PM VA-TOBACCO FORMER USER [facility] Oct 10, 2019 03:41 PM VA-TOBACCO QUIT 15 YRS OR MORE [facility] Advance Directives: All historical and current Section Date Range: From patient's date of to the date document was created. This section includes ALL of a patient's completed or amended [place] Advance and Rescinded Directives. The entries below indicate that a directive exists for the patient, but an actual copy is not included with this document. The data comes from all [place] facilities. Date Advance Directives Provider Source Oct 28, 2019 ADVANCE DIRECTIVE DISCUSSION Onur SHERMAN [facility] Encounter Notes: All associated encounter notes This section contains the clinical notes associated to the Encounter. Date/Time Encounter Note(s) Provider Source Oct 10, 2024 11:44 AM PSYCHOLOGY OUTPATI ENT NOTE: LOCAL TITLE: PRIMARY CARE PSYCHOLOGY NOTE [facility] STANDARD TITLE: PSYCHOLOGY OUTPATIENT NOTE DATE OF NOTE: OCT 10, 2024@11:44 ENTRY DATE: OCT 10, 2024@11:44:34 AUTHOR: INDIA MOHAN EXP COSIGNER: URGENCY: STATUS: COMPLETED Follow-up Template NAME: NAVEEN GUERRA DATE OF : Oct TIME SPENT WITH PATIENT: 30 minutes DIAGNOSIS BEING TREATED: MDD, D/T Hearing Loss Adjustment Disorder w/Anxiety and depression CPT Code: 06480 NATURE OF ENCOUNTER: follow up visit SESSION FORMAT: [X] [id number] [ ] Video Telehealth [ ]Phone Confirmed Dania's location and phone number for virtual appointment. [...] to better understand current presenting concerns. - SC strategies to promote healthy lifestyle choices - Provided psychoeducation about CBT and the connection of thoughts and behaviors. RELEVANT HISTORICAL DEVELOPMENTS SINCE LAST CONTACT: NOTE: Describe relevant historical developments below Alanna reported his is doing much better. She is in PT and falling less. His granddaughter recently and he enjoyed attending the [employer]. Discussed how he feeds 16 stray cats outdoors, and his plans to help to prepare them for the winter. His will allow him to keep 2 of them. Processed work, and his family/work balance. Celeste continues to do well overall. 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 ASSESSMENT MEASURES USED: [ ] Measure in Mental Health [employer]. See accompanying Mental Health Diagnostic Study for details. [ ] Measure(s) sent via [facility], electronically following visit. agrees to asynchronous [...] RISK FACTORS Related to Suicide or Homicide. Dania did not report any current suicidal/homicidal ideation, plan, or intent. Dania did not appear to be at imminent [...] Staff Psychologist Signed: 10/10/2024 12:36 [place] MOHAN [facility]
--- OUTSIDE RECORDS SUMMARY | 2025-02-28 11:07 | XMS_ITS ---
Author Organization [facility] Address [address] [place], [place] [id number] Care Team Providers Care Professor Of Mechanical Engineering Name Role Phone HAYDEN RADHA Unavailable [phone] Yonas Chapa Unavailable Unavailable REASON FOR VISIT *General care Social History Tobacco Use: Social History Observation Description Date Details (start date - stop date) Never Smoker NA - NA Tobacco Use/Smoking Question Answer Notes Tobacco use: nonsmoker Vital Signs Weight 220 lbs 12/22/2024 Weight-kg 99.79 kg 12/22/2024 Height 68 in 12/22/2024 Height-cm 172.72 cm 12/22/2024 BMI 33.45 kg/m2 12/22/2024 Encounters Encounter Location Date Provider Diagnosis [facility] [address] [place], [place] [id number] 12/22/2024 RADHA FORREST Onychomycosis B35.1 ; Pain in right toe(s) M79.674 ; Pain in left toe(s) M79.675 and 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, bilateral legs I70.203 Assessments Encounter Date Diagnosis (ICD Code) Assessment Notes Treatment Notes Treatment Clinical Notes Section Notes 12/22/2024 Onychomycosis (ICD-10 - B35.1) 12/22/2024 Pain in right toe(s) (ICD-10 - M79.674) 12/22/2024 Pain in left toe(s) (ICD-10 - M79.675) 12/22/2024 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 Patient states that their nails are thickened, elongated and painful. Patient states that it is aggravated by shoe gear. Onset is gradual. Patient is taking prescription blood thinners. Date last seen by Dr. Chapa was 11/2024. Initials sea. * ROS: G eneral / Constitutional: Patient denies c hange in appetite, fatigue, chills, fever.? C ardiovascular: Chest pain d enies. N eurologic: Loss of use of extremity d enies. * Medical History: * Surgical History: * Hospitalization/Major Diagno stic Procedure: * Family History: F ather: unknown, Diabetic. M other: unknown, Diabetic. * Social History: T obacco Use: T obacco Use/Smoking T obacco use: n onsmoker D rugs/Alcohol: D o you drink alcohol?: No. * Medications: Objective: * Vitals: W t: 220 lbs, Wt-k.79 kg, Ht: 68 in, Ht-cm: 172.72 cm, BMI: 33.45 Index, Body Surface Area: 2.19. * Examination: P hysical Examination: Gen: T [...] M79.675 4 . 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 Modifiers: Q8 * MINE INSPECTOR Sign off status: Completed true * Provider: Beatrice Forrest DPM Date: 0 12/22/2024 Generated for Ofelia sanches/Laverne/Stephanie on: 0 02/28/2025 11:07 AM CDT History and Physical Notes * HPI (History of Present Illness) Category Sub-Category Detail Notes Category Not es HPI General care Patient presents to the office for diabetic foot care. Patient states that their nails are thickened, elongated and painful. Patient states that it is aggravated by shoe gear. Onset is gradual. Patient is taking prescription blood thinners. Date last seen by Dr. Chapa was 11/2024. Initials sea Examination Category Sub-Category Detail Notes Category Not [...]
--- OUTSIDE RECORDS SUMMARY | 2025-02-28 11:07 | XMS_ITS | CONTINUITY OF CARE DOCUMENT ---
Author Name jadiel duvall Address Unknown Organization [facility] Address [address] [place] [address] Phone [phone] Care Team Providers Care Degree Clerk Name Role Phone Xander Hall MD Unavailable [phone] MUKESH CHAPA MD Unavailable MUKESH CHAPA MD Unavailable PROBLEMS Condition Status Date Provider Notes Diabetes, Type 2 active Sydnee Mooney RN Hyperlipidemia active Sydnee Mooney RN Hypertension active Sydnee Mooney RN Atrial Fibrillation active Sydnee Mooney RN Edema - localized active Sydnee Abraham N Sleep apnea active Sydnee Mooney RN Cardiomyopathy active Sydnee Mooney RN Patent foramen ovale active Sydnee romero RN Leg weakness, bilateral active Kadi Calloway FIELD TECHNICIAN ENCOUNTERS Date Type Provider Location Encounter Diag nosis - In-person encounter Office Visit [facility] Leg weakness, bilateral - In-person encounter Office Visit [facility] - In-person encounter Office Visit [facility] - In-person encounter Office Visit [facility] - In-person encounter Office Visit [facility] - In-person encounter Office Visit [facility] - In-person encounter Office Visit [facility] - In-person encounter Office Visit [facility] - In-person encounter Office Visit [facility] - In-person encounter Office Visit [facility] Atrial Fibrillation - In-person encounter Office Visit [facility] Sleep apneaCardiomyopathyPatent foramen ovale - In-person encounter Office Visit [facility] Diabetes, Type 2HyperlipidemiaHypertensionAtri al FibrillationEdema - localized VITAL SIGNS Date Observation Value Provider Body Mass Index (Ratio) 32.23 kg/m2 gabriela Hall MD blood pressure, diastolic 64 mm[Hg] Margaux Log blood pressure, systolic 126 mm[Hg] Brunilda [facility] blood pressure, diastolic 64 mm[Hg] Chucky cobb [place] blood pressure, systolic 126 mm[Hg] Darling marino [place] oxygen saturation, oximetry 94 % [facility] 72 [facility] rate E&M 12 /min Mansi mike weight E&M 212 [lb_av] Chuckyremy [place] blood pressure, cuff size regular Chucky cobb [place] height E&M 68 [in_i] [facility], diastolic 66 mm[Hg] Margaux nkLog blood pressure, systolic 127 mm[Hg] Brunilda [facility] Body Mass Index (Ratio) 34.51 kg/m2 gabriela Hall MD blood pressure, diastolic 66 mm[Hg] Avani Murguia blood pressure, systolic 127 mm[Hg] Joel shanks [place] oxygen saturation, oximetry 94 % Yasemin Murguia pulse rate 86 /min Yasemin Benitalorelei derian respiratory rate E&M 14 /min Ingris amaya [place] blood pressure, cuff size large Avani avina [place] weight E&M 227 [lb_av] Yasemin Katerine menard height E&M 68 [in_i] Yasemin Katerine menard Body Mass Index (Ratio) 34.82 kg/m2 Sund gabriela Hall MD blood pressure, diastolic 68 mm[Hg] Margaux nkLogic blood pressure, systolic 139 mm[Hg] Brunilda kLogic blood pressure, cuff size large Ke rri Gruenenfnatalie blood pressure, diastolic 68 mm[Hg] Ke rri Brodyuenenfelder blood pressure, systolic 139 mm[Hg] Maribell Guerra oxygen saturation, oximetry 92 % Sabrina Guerra respiratory rate E&M 16 /min Sabrina pratt pulse rate 70 /min Sabrina Lorenzo er weight E&M 229 [lb_av] Sabrina Lorenzo lder height E&M 68 [in_i] Sabrina Lorenzo [facility] Body Mass Index (Ratio) 37.10 kg/m2 Sund gabriela Hall MD blood pressure, diastolic 80 mm[Hg] Li nkLognury blood pressure, systolic 140 mm[Hg] Brunilda kLogic blood pressure, diastolic 80 mm[Hg] Li nkLogic blood pressure, systolic 140 mm[Hg] Brunilda kLogic pulse rate 76 /min Trybianka Irene respiratory rate E&M 18 /min Trybianka Irene oxygen saturation, oximetry 93 % Yumi Irene blood pressure, diastolic 80 mm[Hg] Tr dawn Irene blood pressure, systolic 140 mm[Hg] Try bainka Irene weight E&M 244 [lb_av] Yumi Irene height E&M 68 [in_i] Yumi Irene Body Mass Index (Ratio) 37.10 kg/m2 Sund eep Rafael MEYER blood pressure, diastolic 84 mm[Hg] Fe mile Cancino blood pressure, systolic 131 mm[Hg] Fel icia Cancino oxygen saturation, oximetry 95 % Marina Cancino respiratory rate E&M 18 /min Marina Cancino pulse rate 82 /min Marina Cancino weight E&M 244 [lb_av] Marina Cancino height E&M 68 [in_i] Marina Cancino Body Mass Index (Ratio) 36.94 kg/m2 Audr ana maria Mooney RN blood pressure, diastolic 68 mm[Hg] Ch astity Julius blood pressure, systolic 132 mm[Hg] Kim stity Julius oxygen saturation, oximetry 97 % Chastity Julius pulse rate 79 /min Chastity Julius respiratory rate E&M 16 /min Chastit y Julius weight E&M 243 [lb_av] Chastity Julius height E&M 68 [in_i] Chastity Julius Body Mass Index (Ratio) 36.64 kg/m2 Audjorge Mooney RN blood pressure, diastolic 60 mm[Hg] Br ittany Block blood pressure, systolic 118 mm[Hg] Meredith mckenna Block pulse rate 66 /min Kathy Block oxygen saturation, oximetry 94 % Kathy Block respiratory rate E&M 16 /min Brittan y Block weight E&M 241 [lb_av] Kathy Block height E&M 68 [in_i] Kathy Block Body Mass Index (Ratio) 36.34 kg/m2 Zaida Mooney RN blood pressure, diastolic 70 mm[Hg] Ma yesenia O'Silviano blood pressure, systolic 138 mm[Hg] [facility] OSilviano oxygen saturation, oximetry 97 % Verna O'Silviano respiratory rate E&M 16 /min Verna O'Silviano pulse rate 60 /min Verna O'Silviano weight E&M 239 [lb_av] Verna O'Silviano height E&M 68 [in_i] Verna O'Silviano Body Mass Index (Ratio) 36.03 kg/m2 Zaida Mooney RN pulse rate 75 /min Kathy Block blood pressure, diastolic 70 mm[Hg] Br ittany Block blood pressure, systolic 140 mm[Hg] Meredith ttany Block oxygen saturation, oximetry 97 % Kathy Block weight E&M 237 [lb_av] Kathy Block respiratory rate E&M 16 /min Brittan y Block height E&M 68 [in_i] Kathy Block Body Mass Index (Ratio) 36.18 kg/m2 Zaida Mooney RN blood pressure, diastolic 58 mm[Hg] Br ittany Block blood pressure, systolic 120 mm[Hg] Meredith ttany Block pulse rate 68 /min Kathy Block oxygen saturation, oximetry 96 % Kathy Block weight E&M 238 [lb_av] Kathy Block respiratory rate E&M 16 /min Brittan y Block height E&M 68 [in_i] Kathy Block Body Mass Index (Ratio) 36.58 kg/m2 Zaida Mooney RN pulse rate 91 /min Shiela Zaldivar oxygen saturation, oximetry 93 % Shiela Zaldivar blood pressure, diastolic 70 mm[Hg] Matthew Zaldivar blood pressure, systolic 150 mm[Hg] Pedro Zaldivar blood pressure, cuff size regular Matthew Zaldivar respiratory rate E&M 17 /min Shiela Zaldivar weight E&M 240.6 [lb_av] Shiela height E&M 68 [in_i] [facility] Body Mass Index (Ratio) 37.40 kg/m2 Audr ana maria Mooney RN blood pressure, resting Yes Jaiden paulino O' blood pressure, diastolic 70 mm[Hg] Rachel pattersonha OSilviano blood pressure, systolic 140 mm[Hg] Kallie singleton OSilviano oxygen saturation, oximetry 95 % Verna O'Silviano respiratory rate E&M 16 /min Verna O'Silviano pulse rate 80 /min Verna O'Silviano weight E&M 246 [lb_av] Verna O'Silviano height E&M 68 [in_i] Verna O'Silviano ALLERGIES No Known Drug Allergies RESULTS Date Observation Value Provider Reference Range Interpretation Location NT-pro BNP 81 LinkLogic <450 Normal calcium, serum 8.6 mg/dL Link[facility] 8.6-10.3 Normal carbon dioxide, venous blood 25 mmol/L [facility] 20-32 Normal chloride, serum 107 mmol/L Link[facility] 98-110 Normal potassium, serum 5.1 mmol/L Link[facility] 3.5-5.3 Normal sodium, serum 140 mmol/L [facility] 135-146 Normal urea nitrogen/creatini ne ratio, serum 13 (calc) Link[facility] 6-22 Normal creatinine, serum 1.60 mg/dL [facility] 0.70-1.28 High urea nitrogen, blood 20 mg/dL [facility] 7-25 Normal blood glucose, random 177 mg/dL Link[facility] 65-99 High microalbumin/crea tinine ratio, urine 11 MG/G CREAT Link[facility] <30 Normal microalbumin/tota l urine volume 9 mg/L Link[facility] Units converted. See lab report for original value. Normal creatinine, random, urine 82 mg/dL Link[facility]ic 20-320 Normal cholesterol, non-HDL, total 131 MG/DL (CALC) LinkLogic <130 High cholesterol/HDL ratio, serum, percent 3.6 (calc) Link[facility]ic <5.0 Normal LDL cholesterol, serum 97 MG/DL (CALC) [facility] Normal triglyceride, serum, fasting 224 mg/dL Link[facility]ic <150 High HDL cholesterol, serum 51 mg/dL LinkLogic > OR = 40 Normal cholesterol, serum 182 mg/dL Link[facility]ic <200 Normal calcium, serum 9.3 mg/dL [facility] 8.6-10.3 Normal carbon dioxide, venous blood 30 mmol/L [facility] 20-32 Normal chloride, serum 104 mmol/L [facility] 98-110 Normal potassium, serum 5.1 mmol/L Link[facility] 3.5-5.3 Normal sodium, serum 141 mmol/L Link[facility]ic 135-146 Normal urea nitrogen/creatini ne ratio, serum 16 (calc) Link[facility]ic 6-22 Normal Estimated Glomerular Filtration Rate (calc) 60 mL/min/{1. 73_m2} LinkLogic > OR = 60 Normal creatinine, serum 1.33 mg/dL [facility] 0.70-1.18 High urea nitrogen, blood 21 mg/dL [facility] 7-25 Normal blood glucose, random 117 mg/dL Link[facility] 65-99 High cholesterol, non-HDL, total 111 MG/DL (CALC) LinkLogic <130 Normal cholesterol/HDL ratio, serum, percent 3.6 (calc) LinkLogic <5.0 Normal LDL cholesterol, serum 81 MG/DL (CALC) LinkLogic Normal triglyceride, serum, fasting 206 mg/dL LinkLogic <150 High HDL cholesterol, serum 43 mg/dL LinkLogic > OR = 40 Normal cholesterol, serum 154 mg/dL LinkLogic <200 Normal HISTORY OF MEDICATION USE Medication Status Instructions Dates Provider Indications Com ments Ozempic 1 mg/dose (4 mg/3 mL) pen injector active INJECT 1MG UNDER THE SKIN ONE TIME WEEKLY DIRECTED Mansi España lovastatin 40 mg tablet active Take 1 tablet by mouth once daily Sanjuanita Yoo lisinopril 20 mg tablet active Take 1 tablet by mouth once daily [facility] RADHA Specialist Jardiance 25 mg tablet active Take 1 tablet by mouth once a day Sabrina Guerra Lexapro 10 mg tablet active Sabrina Guerra propafenone 150 mg tablet active TAKE 1 TABLET BY MOUTH THREE TIMES DAILY Abby Sanchez carvedilol 6.25 mg tablet active Take 1 tablet by mouth twice [facility] GARCIA Specialist lovastatin 40 mg tablet completed Take 1 tablet by mouth once a day - Salina Arboleda carvedilol 6.25 mg tablet completed Take 1 tablet by mouth twice a day - Xander Hall MD lisinopril 20 mg tablet completed Take 1 tablet by mouth once a day - Abby Sanchez propafenone 150 mg tablet completed Take 1 tablet by mouth three times a day - Abby Sanchez carvedilol 12.5 mg tablet completed Take 1 tablet by mouth twice a day - Sabrina Guerra AMIODARONE HCL 200 MG ORAL TABLET completed 1/2 tablet daily. - Xander Hall MD Xarelto 20 mg tablet active Take 1 tablet by mouth once a day Lilly Zeke Flonase Allergy Relief 50 mcg/actuation spray,suspensio n active into both nostrils as needed Verna Calloway lovastatin 40 mg tablet completed Take 1 tablet by mouth once a day - Thomas Mallory lisinopril 10 mg tablet completed Take 1 tablet by mouth once a day - Thomas Torrest glimepiride 2 mg tablet completed one tab am, two tab pm - Sabrina Guerra metformin 500 mg tablet active 1 tablet by mouth twice a day Mansi España SOCIAL HISTORY Date Observation Value Provider alcohol use no Kadi Calloway FIELD TECHNICIAN smoking status Never smoker Kadi Calloway FIELD TECHNICIAN smoking status Never smoker Yasemin Warner alcohol use no Yasemin menard smoking status Never smoker Sabrina araujo smoking status Never smoker Yumi milian social history reviewed E&M revi ewed - no changes required Sydnee Mooney RN smoking status Never smoker Marina Cancino social history reviewed E&M revi ewed - no changes required Sydnee Mooney RN smoking status Never smoker Martha amaya social history reviewed E&M revi ewed - no changes required Sydnee Mooney RN smoking status Never smoker Kathy marlow social history reviewed E&M revi ewed - no changes required Xander Hall MD smoking status Never smoker Verna Calloway social history reviewed E&M revi ewed - no changes required Sydnee Mooney RN smoking status Never smoker Kathy marlow social history reviewed E&M revi ewed - no changes required Sydnee Mooney RN smoking status Never smoker Kathy marlow social history reviewed E&M revi ewed - no changes required Sydnee Mooney RN smoking status Never smoker Shiela Sandoval social history reviewed E&M revi ewed - no changes required Sydnee Mooney RN social history E&M Patient has n ever smoked. A lcohol Use - no Smoking History: [place] has never smoked. Sydnee Mooney RN smoking status Never smoker Verna Slade'Silviano FAMILY HISTORY Family Member Condition Father Family History of Co ronary Artery Disease: Father Family History of Di abetes: Mother Family History of Di abetes: INSURANCE PROVIDERS Payer name Policy type / Coverage type [place] red green party ID [employer] [id number] [place] MEDIC[place] PART B Medicare [id number] ADVANCE DIRECTIVES Name Date DISCUSSED - NO DECISION MADE TREATMENT PLAN Date Name Performer [id number],C,h gbA1C - 9.1% and his jardiance was increased to 25mg Maribel Burks FIELD TECHNICIAN [id number],C, o n statin h is last lipid was 12/2020 - chol 154, Trigs 206, HDL 43, LDL 81 wants lab results sent to Dr Osman at [place] with fx #[phone] Maribel Burks FIELD TECHNICIAN [id number],C, B P today: 139/68 P rior BP: 140/80 (10/30/2021) Labs Reviewed: C reat: 1.33 (12/25/2020) C hol: 154 (12/25/2020) HDL: 43 (12/25/2020) LDL: 81 MG/DL (CALC) (12/25/2020) T (12/25/2020) Maribel Burks FIELD TECHNICIAN [id number],C r emaiins in NSR rate in the 70s [address] degree block Maribel Burks NASIR [id number],C,Uses his CPAP nightly Maribel Burks FIELD TECHNICIAN [id number],C, H is last echo last year 11/12 - EF 60% Maribel Burks NASIR [id number],C, H is updated medication list for this problem includes: Lisinopril 10 Mg Tablet (Lisinopril) ..... Take 1 tablet by mouth once a day Carvedilol 12.5 Mg Tablet (Carvedilol) ..... Take 1 tablet by mouth twice a day BP today: 140/80 P rior BP: 131/84 (10/31/2020) Labs Reviewed: C reat: 1.33 (12/25/2020) C hol: 154 (12/25/2020) HDL: 43 (12/25/2020) LDL: 81 MG/DL (CALC) (12/25/2020) T (12/25/2020) Xander Hall MD [id number],C,i n sr d enies palpiations is kaylee and will cut back carvdilol to 6.25mg bid Xander Hall MD [id number],S, Xander Hall MD [id number],C,has normalozi ed Xander Hall MD Cardiology: E cho (10/2023): 1 . Technically difficult study, secondary to poor acoustic windows. There is poor endocardial visualization. Interpretation is b ased on available limited views. Normal left ventricular systolic function. Normal left ventricular size. Normal left ventricular w all thickness. Unable to determine diastolic function. E/E': 9.7. Left ventricular ejection fraction is measured at 60 %. 2 . There is mild enlargement of the left atrium. Left atrial volume index is 28.7. LA volume is 62 mL. 3 . No significant valvular abnormalities. Kadi Calloway NP Cardiology: i n afib rate controlled on xarelto o n propafenone and carvedilol stress (12/2023): 1 . Normal sinus rhythm. The resting EKG shows right bundle branch block. 2 . Normal Regadenoson ECG with no ischemic ST or T changes, followng vasodilator infusion. 3 . Normal left ventricle size. 4 . Global left ventricular function is normal Left Ventricular Ejection Fraction at stress is 51 %. Left Ventricular Ejection F raction at rest is 51 %. TID: 1.48. 5 . Normal myocardial perfusion imaging with no evidence of ischemia or scar. Apical defect which is most likely an artifact. Kadi Calloway NP Cardiology: n one today on exam d oes not use compression Kadi Calloway NP Cardiology: T he patient is using CPAP on a regular basis. The patient has been benefiting from therapy and should continue use. Kadi Calloway NP Cardiology: W ill update lipid panel His updated medication list for this problem includes: Lovastatin 40 Mg Tablet (Lovastatin) ..... Take 1 tablet by mouth once daily aKdi Calloway NP Cardiology: B P today: 126/64 P rior BP: 127/66 (11/04/2023) Labs Reviewed: C reat: 1.33 (12/25/2020) C hol: 154 (12/25/2020) HDL: 43 (12/25/2020) LDL: 81 MG/DL (CALC) (12/25/2020) T (12/25/2020) His updated medication list for this problem includes: Lisinopril 20 Mg Tablet (Lisinopril) ..... Take 1 tablet by mouth once daily Carvedilol 6.25 Mg Tablet (Carvedilol) ..... Take 1 tablet by mouth twice daily Kadi Calloway NP Cardiology: L abs (09/2024) A1c 8.0% per pt His updated medication list for this problem includes: Metformin 500 Mg Tablet (Metformin) ..... 1 tablet by mouth twice a day Ozempic 1 Mg/dose (4 Mg/3 Ml) Pen Injector (Semaglutide) ..... Inject 1mg under the skin one time weekly as directed Lisinopril 20 Mg Tablet (Lisinopril) ..... Take 1 tablet by mouth once daily Jardiance 25 Mg Tablet (Empagliflozin) ..... Take 1 tablet by mouth once a day Kadi Elli FIELD TECHNICIAN Cardiology: P t thinks this is due to deconditioning, but this hinders him as he goes up stairs. Working out more, but his arthritis in his knee also hinders him. Will check DINORA. Kadi Calloway FIELD TECHNICIAN Cardiology:6.5% His updated medication list for this problem includes: Lisinopril 20 Mg Tablet (Lisinopril) ..... Take 1 tablet by mouth once daily Jardiance 25 Mg Tablet (Empagliflozin) ..... Take 1 tablet by mouth once a day Metformin 500 Mg Tablet (Metformin) ..... 2 tablet by mouth twice a day Xander Rafael MEYER Cardiology: H is updated medication list for this problem includes: Lovastatin 40 Mg Tablet (Lovastatin) ..... Take 1 tablet by mouth once daily Xanderla Hall MD Cardiology: H is updated medication list for this problem includes: Lisinopril 20 Mg Tablet (Lisinopril) ..... Take 1 tablet by mouth once daily Carvedilol 6.25 Mg Tablet (Carvedilol) ..... Take 1 tablet by mouth twice daily BP today: 127/66 P rior BP: 139/68 (11/05/2022) Labs Reviewed: C reat: 1.33 (12/25/2020) C hol: 154 (12/25/2020) HDL: 43 (12/25/2020) LDL: 81 MG/DL (CALC) (12/25/2020) T (12/25/2020) Xanderla Hall MD Cardiology:controlle d d oes not use compression Xanderla Hall MD Cardiology Xander Rafael MEYER Cardiology:will chck echo c mp had resolved Xander Rafael MEYER Cardiology:in sr o n propafenone and carvedilol last stress test was 12/12 w ill redo Xander Hall MD Cardiology:hgbA1C - 9.1% and his jardiance was increased to 25mg aMribel Burks FIELD TECHNICIAN Cardiology: o n statin h is last lipid was 12/2020 - chol 154, Trigs 206, HDL 43, LDL 81 wants lab results sent to Dr Osman at [place] with fx #[phone] Maribel Burks FIELD TECHNICIAN Cardiology: B P today: 139/68 P rior BP: 140/80 (10/30/2021) Labs Reviewed: C reat: 1.33 (12/25/2020) C hol: 154 (12/25/2020) HDL: 43 (12/25/2020) LDL: 81 MG/DL (CALC) (12/25/2020) T (12/25/2020) Maribel Burks FIELD TECHNICIAN Cardiology: r emaiins in NSR rate in the 70s 1 st degree block Mairbel Burks FIELD TECHNICIAN Cardiology:Uses his CPAP nightly Maribel Burks FIELD TECHNICIAN Cardiology: H is last echo last year 11/12 - EF 60% Maribel Burks FIELD TECHNICIAN Cardiology: H is updated medication list for this problem includes: Lisinopril 10 Mg Tablet (Lisinopril) ..... Take 1 tablet by mouth once a day Carvedilol 12.5 Mg Tablet (Carvedilol) ..... Take 1 tablet by mouth twice a day BP today: 140/80 P rior BP: 131/84 (10/31/2020) Labs Reviewed: C reat: 1.33 (12/25/2020) C hol: 154 (12/25/2020) HDL: 43 (12/25/2020) LDL: 81 MG/DL (CALC) (12/25/2020) T (12/25/2020) Xander Hall MD Cardiology:in sr d enies palpiations is kaylee and will cut back carvdilol to 6.25mg bid Xander Hall MD Cardiology Xander Hall MD Cardiology:has normalozied Bille tatianna Hall MD Cardiology:on statin s tates he is overdue for lipids and basic labs wants lab results sent to Dr Osman at [place] with fx #[phone] Sydnee Mooney RN Cardiology:states last hgb a1c 7 .2 Sydnee Mooney RN Cardiology:occasiona l left foot edema, occurs after sitting long periods of time, resolves by morning h as trouble geting compression sock on d oes not bother him and he feels this happens because 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 He is able to do his work around the house as well. Denies CP, SOB, palpitations with activity. 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 He is able to do his work around the house as well. Denies CP, SOB, palpitations with activity. o n propafenone, coreg, xarelto h x asx wtih afib ---continue oac Sydnee Mooney RN Cardiology:staying in sr with pr opafenone Sydnee Mooney RN Cardiology:wc Sydnee Mooney RN Cardiology:left foot edema h as discomfort in left foot by the end of the day i s getting new compression socks Sydnee Mooney RN Cardiology:uses cpap Sydnee kaba RN Cardiology:redo echo Sydnee kaba RN Cardiology:He stoppe d Amiodarone 2 months ago and 1 month ago started propafenone. Denies any issues or side effects. 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 Denies CP, SOB, palpitations. ekg today shows sr with qrsd 148 ms (up from 136) Sydnee Mooney RN Cardiology:Ef 45% on echo Sydnee Mooney RN Cardiology: H is updated medication list for this problem includes: Lovastatin 40 Mg Oral Tablet (Lovastatin) ..... One tab. daily Sydnee Mooney RN Cardiology:follows wt Louisaremy Hernandez FIELD TECHNICIAN Sydnee Mooney RN Cardiology:BP today: 118/60 P rior BP: 138/70 (12/14/2019) Sydnee Mooney RN Cardiology:compliant with cpap A helder Mooney RN Cardiology - ltr done:wc Xanderla Hall MD Cardiology - ltr don e:in sr w ill stop amiodaorne and wait for a month t hen start propafenone Xander Rafael MEYER Cardiology - ltr done:using cpap Xander Rafael MEYER Cardiology - ltr don e:His lvef has improved significantly and is at about 45% now.on echo and was normal on MPI Xander Rafael MEYER Cardiology: H is updated medication list for this problem includes: Lisinopril 10 Mg Oral Tablet (Lisinopril) ..... One tab. daily Glimepiride 2 Mg Oral Tablet (Glimepiride) ..... One tab am, two tab pm Metformin Hcl 500 Mg Oral Tablet (Metformin hcl) ..... One tab am, two tab pm Xander Rafael MEYER Cardiology: H is updated medication list for this problem includes: Carvedilol 12.5 Mg Oral Tablet (Carvedilol) ..... One tab twice a day Lisinopril 10 Mg Oral Tablet (Lisinopril) ..... One tab. daily Xanderla Hall MD Cardiology:uses cpap Xanderla Hall MD Cardiology:His lvef has improved significantly and is at about 45% now. w ill do stress test Xanderla Hall MD Cardiology:BP today: 120/58 P rior BP: 150/70 (08/31/2019) Sydnee Monoey RN Cardiology: He had t ee guided cardioversion done in 08/04/19 and remains in sr and is on amiodarone to maintain sr. He had a cmp discovered on his bruna at the time of cardioverison. D enies sob or CP. Denies palpitations. i n sr on exam today Sydnee Mooney RN Cardiology:Using cpa p and is able to sleep with it now. T he patient is using CPAP on a regular basis. The patient has been benefiting from therapy and should continue use. Sydnee Mooney RN Cardiology:will rech pedro echo to see if lvef better m ay have improved iwth carvedililol, cardioversion and christiane rx Sydnee Mooney RN Cardiology:BRUNA showe d EF 30% on BRUNA, also atrial septal aneurysm with PFO. Sydnee Mooney RN Cardiology:on lovast atin n o flp available Sydnee Mooney RN Cardiology:BRUNA showe d EF 30% on BRUNA, a lso atrial septal aneurysm with PFO. add coreg c onsider stress test (multiple risk factors for cad) - if lvef does not come back to normal with maintainace ofsr i f remains depressed, will cath Sydnee Mooney RN Cardiology: He is ab le to do vacuuming for 20-30 minutes before he takes a break due to back pains. Occasional SOB if he exerts himself more, but denies CP. Denies palpitations. T EE showed EF 30% on BRUNA, also atrial septal aneurysm with PFO. C ardioversion was succesful in nsr on exam o n xarelto, amiodarone Sydnee Mooney RN Cardiology:BP today: 150/70 P rior BP: 140/70 (07/20/2019) Sydnee Mooney RN Cardiology:He had sl eep study showing AHI 11.4, but O2 sat dropped down to 58% T itration study showed benefit of CPAP at 11. C PAP has been ordered and pt dena get it soon Sydnee Mooney RN Cardiology:negative eval in past Sydnee Mooney RN Cardiology: H is updated medication list for this problem includes: Lovastatin 40 Mg Oral Tablet (Lovastatin) ..... One tab. daily Sydnee Mooney RN Cardiology: H is updated medication list for this problem includes: Lisinopril 10 Mg Oral Tablet (Lisinopril) ..... One tab. daily Sydnee Mooney RN Cardiology:He had a routine appointment with Dr Chapa and was noted to be in a fib. He denies hx of arrhythmias. No hx of chest pains, sob. He has palpitations when he exercises or moves a lot. No dizziness or lightheadedness. He admits to b/l edema for the last one year. His heartt rate is fine without avn blockers. I gave him samples of oac. I discussed the options of rate control and rhythm control with him and he wishes to proceed with rhythm control. W Ill plan to proceed with BRUNA guided cardioversion. Sydnee Mooney RN Cardiology: H is updated medication list for this problem includes: Lisinopril 10 Mg Oral Tablet (Lisinopril) ..... One tab. daily Glimepiride 2 Mg Oral Tablet (Glimepiride) ..... One tab am, two tab pm Metformin Hcl 500 Mg Oral Tablet (Metformin hcl) ..... One tab am, two tab pm Sydnee Mooney RN Date Name Arterial Duplex Bi-L ower EX BASIC METABOLIC PANE L W/EGFR Microalb/Creatinine Urine, Random PROBNP, N TERMINAL LIPID PANEL Stress Cardiac PET-C T Complete Echo Complete Echo LIPID PANEL BASIC METABOLIC PANE L W/EGFR Complete Echo Complete Echo Complete Echo Complete Echo Sleep Study Home [facility] - [facility] HISTORY OF PROCEDURES Procedure Date Procedure Name Provider Procedure Notes S tatus Complex e/m visit ad d on Rafael MEYER completed EKG Rafael MEYER completed EKG Xander Hall MD completed EKG Xander Hall MD completed EKG Xander Hall MD completed Stress EKG Fiona Hines MD completed Cardiolite, 2 units Sergio Wynn MD completed SPECT Images Sergio Wynn MD completed EKG Xander Hall MD completed
--- OUTSIDE RECORDS SUMMARY | 2025-02-28 11:07 | XMS_ITS | Continuity of Care Document ---
Author Name [facility] Organization [facility] Care Team Providers Care Staffing And Scheduling Coordinator Name Role Phone [facility] Unavailable Unavailable Problems Combined list of problems from Department of [facility] and Veterans Affairs facilities. It does not include entries that were removed or entered in error. 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 [facility] Obesity Active Condition [facility] Obstructive sleep apnea syndrome Active Condition [facility] Sensory hearing loss Active Condition [facility] Diagnosis: ICD-10-CM Z51.81 Encounter for therapeutic drug level monitoring Active Diagnosis [facility] Diagnosis: ICD-10-CM 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 Diagnosis [facility] Diagnosis: ICD-10-CM I10 Essential (primary) hypertension Active Diagnosis [facility] Diagnosis: ICD-10-CM 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 [facility] Diagnosis: ICD-10-CM F43.23 Adjustment disorder with mixed anxiety and depressed mood Active Diagnosis [facility] Diagnosis: ICD-10-CM H90.3 Sensorineural hearing loss, bilateral Active Diagnosis [facility] Diagnosis: ICD-10-CM Z00.01 Encounter for general adult medical exam w abnormal findings Active Diagnosis [facility] Medications Combined list of outpatient medications from Department of [facility] and Veterans Affairs facilities.Medications provided include 1) outpatient medications from the last 15 months, and 2) patient-reported medications. Medication Details Route Status Patient Instructions Prescription Expires Prescription Number Last Dispense Date Ordering Provider Order Date Order Qty Source ACETAMINOPH EN 325MG TAB TAKE FOUR TABLETS BY MOUTH TWICE A DAY ORAL ACTIVE Minda CALDWELL 2021 [facility] [place] N CARVEDILOL 12.5MG TAB TAKE ONE-HALF TABLET BY MOUTH TWICE A DAY ORAL ACTIVE RADHA SCHULTZ 2018 [facility] EMPAGLIFLOZ IN 25MG TAB TAKE ONE TABLET BY MOUTH ONCE A DAY FOR DIABETES ORAL ACTIVE 12/27/2025 [id number] 5 Tsering WALKER J 2024 90 [facility] EMPAGLIFLOZ IN 25MG TAB TAKE ONE TABLET BY MOUTH ONCE A DAY FOR DIABETES ORAL DISCONT INUED 10/27/2024 [id number] 4 Tsering WALKER J 2023 90 [facility] ESCITALOPRA M OXALATE 20MG TAB TAKE ONE-HALF TABLET BY MOUTH ONCE A DAY FOR MOOD ORAL ACTIVE 12/27/2025 [id number] 5 KATRINA GUTHRIE 2024 45 [facility] ESCITALOPRA M OXALATE 20MG TAB TAKE ONE-HALF TABLET BY MOUTH ONCE A DAY FOR MOOD ORAL DISCONT INUED 04/02/2025 [id number] 4 RADHA SCHULTZ 2023 45 [facility] ESCITALOPRA M OXALATE 20MG TAB TAKE ONE-HALF TABLET BY MOUTH ONCE A DAY FOR MOOD ORAL DISCONT INUED 03/31/2024 [id number] 4 RADHA SCHULTZ 2022 45 [facility] FLUTICASONE PROPIONATE 50MCG/SPRAY SOLN,NASAL, 16GM INSTILL 1 SPRAY IN EACH NOSTRIL ONCE A DAY NASAL ACTIVE RADHA SCHULTZ 2018 [facility] LISINOPRIL 20MG TAB TAKE ONE-HALF TABLET BY MOUTH ONCE A DAY ORAL ACTIVE RADHA SCHULTZ 2018 [facility] LOVASTATIN 40MG TAB TAKE ONE TABLET BY MOUTH EVERY EVENING ORAL ACTIVE SCHULTZ RADHA SANTIAGO 2018 [facility] METFORMIN HCL 1000MG TAB TAKE ONE-HALF TABLET BY MOUTH TWICE A DAY WITH MEALS ORAL ACTIVE FADI GARRETT NOD K 2024 [facility] MULTIVITAMI NS W/MINERALS CAP/TAB TAKE 1 CAP/TAB BY MOUTH ONCE A DAY ORAL ACTIVE Minda CALDWELL 2021 [facility] DIVISIO N PROPAFENONE HCL 150MG TAB TAKE ONE TABLET BY MOUTH EVERY 8 HOURS ORAL ACTIVE SCHULTZRADHA JIMENEZ 2019 [facility] RIVAROXABAN 20MG TAB TAKE ONE TABLET BY MOUTH ONCE A DAY TO THIN BLOOD. TAKE WITH FOOD. ORAL ACTIVE 01/26/2026 [id number] 5 CARRIE THOMAS 2024 90 [facility] RIVAROXABAN 20MG TAB TAKE ONE TABLET BY MOUTH ONCE A DAY TO THIN BLOOD. TAKE WITH FOOD. ORAL DISCONT INUED 07/08/2025 [id number] CARRIE THOMAS 2023 90 [facility] N RIVAROXABAN 20MG TAB TAKE ONE TABLET BY MOUTH ONCE A DAY TO THIN BLOOD. TAKE WITH FOOD. ORAL DISCONT INUED 06/22/2024 [id number] CARRIE THOMAS 2022 90 [facility] SEMAGLUTIDE 0.25MG/0.37 5ML INJ,SOLN,PE N,3ML INJECT 0.5MG UNDER THE SKIN EVERY WEEK SUBCUT ANEOUS DISCONT INUED (EDIT) 07/19/2025 [id number] FADI GARRETT NOD K 2023 3 [facility] SEMAGLUTIDE 0.25MG/0.37 5ML INJ,SOLN,PE N,3ML INJECT 0.5MG UNDER THE SKIN EVERY WEEK SUBCUT ANEOUS DISCONT INUED 03/10/2025 [id number] Tsering WALKER 2023 1 [facility] SEMAGLUTIDE 0.25MG/0.37 5ML INJ,SOLN,PE N,3ML INJECT 0.5MG UNDER THE SKIN EVERY WEEK FOR DIABETES SUBCUT ANEOUS 03/08/2024 [id number] Tsering WALKER RIS J 2023 3 [facility] SEMAGLUTIDE 1MG/0.75ML INJ,SOLN,PE N,3ML INJECT 1MG UNDER THE SKIN EVERY WEEK FOR DIABETES SUBCUT ANEOUS ACTIVE 01/25/2026 [id number] TAMI, NOD K 2024 3 [facility] VITAMIN B COMPLEX CAP TAKE 1 CAPSULE BY MOUTH QAM ORAL ACTIVE Minda CALDWELL 2021 [facility] Immunizations Combined list of available immunizations from the Department of Defense and Veterans Affairs facilities. Immunization Series Date Given Administered By Site Reaction Lot Number CVX Code Drug Machine Filler Servicer Status Comments Source INFLUENZA, UNSPECIFIED FORMULATION 2022 88 complet ed [facility] INFLUENZA, UNSPECIFIED FORMULATION [address] [facility] ZOSTER RECOMBINANT 2 2020 187 complet ed [facility] ZOSTER RECOMBINANT 1 2019 187 complet ed [facility] INFLUENZA, UNSPECIFIED FORMULATION 2019 88 complet ed [facility] PNEUMOCOCCAL CONJUGATE PCV 13 2018 133 complet ed will [facility] INFLUENZA, UNSPECIFIED FORMULATION 2018 88 complet ed [facility] PNEUMOCOCCAL POLYSACCHARID E PPV23 2018 33 complet ed [facility] TDAP 2014 115 complet [facility] DIV[facility]IO N INFLUENZA, UNSPECIFIED FORMULATION 2009 88 complet ed [facility] Results Combined list of recent chemistry, hematology and other laboratory results from Department of Defense and Veterans Affairs, ranging from 15 months to all on record, depending upon the facility. Order Name Results Value Reference Range Date Interpretation Specimen Comments Source LIPID PANEL (STL) CHOLESTEROL [MASS/VOLUM E] IN SERUM OR PLASMA 184 mg/dL 0 - 200 01/23 Specimen Type: PLASMA Comment: No hemolysis noted. Ordering Provider: MISHA GARRETT OD Report Released Date/Time: Jan 23, 2025 01:06 PM Reporting Lab: [place] [address] [facility] [address] Performing Lab: [place] [address] [facility] [phone] [facility] LIPID PANEL (STL) TRIGLYCERID E [MASS/VOLUM E] IN SERUM OR PLASMA 140 mg/dL 0 - 150 01/23 Specimen Type: PLASMA Comment: No hemolysis noted. Ordering Provider: MISHA GARRETT OD Report Released Date/Time: Jan 23, 2025 01:06 PM Reporting Lab: [place] [phone] Performing Lab: [place] [address] [facility] [address] [facility] LIPID PANEL (STL) CHOLESTEROL IN LDL [MASS/VOLUM E] IN SERUM OR PLASMA BY CALCULATION 97 mg/dL 01/23 Specimen Type: PLASMA Comment: No hemolysis noted. Ordering Provider: MISHA GARRETT OD Report Released Date/Time: Jan 23, 2025 01:06 PM Reporting Lab: [place] [address] [facility] [phone] Performing Lab: [place] [address] [facility] [phone] [facility] LIPID PANEL (STL) CHOLESTEROL IN HDL [MASS/VOLUM E] IN SERUM OR PLASMA 59 mg/dL 40 01/23 Specimen Type: PLASMA Comment: No hemolysis noted. Ordering Provider: MISHA GARRETT OD Report Released Date/Time: Jan 23, 2025 01:06 PM Reporting Lab: [place] [address] [facility] [phone] Performing Lab: [place] [address] [facility] [phone] [address] [facility] COMPREHENS PAULA METABOLIC PANEL CREATININE [MASS/VOLUM E] IN SERUM OR PLASMA 1.40 mg/dL 0.7 - 1.3 01/23 H Specimen Type: PLASMA Comment: No hemolysis noted. Ordering Provider: MISHA GARRETT OD Report Released Date/Time: Jan 23, 2025 01:06 PM Reporting Lab: [place] [address] [place] [address] Performing Lab: [facility] [address] [place] [phone] [facility] COMPREHENS PAULA METABOLIC PANEL UREA NITROGEN [MASS/VOLUM E] IN SERUM OR PLASMA 31.0 mg/dL 9.0 - 25.0 01/23 H Specimen Type: PLASMA Comment: No hemolysis noted. Ordering Provider: MISHA GARRETT OD Report Released Date/Time: Jan 23, 2025 01:06 PM Reporting Lab: [place] [address] [place] [address] Performing Lab: [facility] [address] [place] [phone] [facility] COMPREHENS PAULA METABOLIC PANEL GLUCOSE [MASS/VOLUM E] IN SERUM OR PLASMA 182 mg/dL 72 - 99 01/23 H Specimen Type: PLASMA Comment: No hemolysis noted. Ordering Provider: MISHA GARRETT OD Report Released Date/Time: Jan 23, 2025 01:06 PM Reporting Lab: [place] [address] [place] [address] Performing Lab: [facility] [address] [place] [phone] [facility] COMPREHENS PAULA METABOLIC PANEL SODIUM [MOLES/VOLU ME] IN SERUM OR PLASMA 138 meq/L 136 - 145 01/23 Specimen Type: PLASMA Comment: No hemolysis noted. Ordering Provider: MISHA GARRETT OD Report Released Date/Time: Jan 23, 2025 01:06 PM Reporting Lab: [place] [address] [place] [address] Performing Lab: [place] [address] [facility] [phone] [facility] COMPREHENS PAULA METABOLIC PANEL POTASSIUM [MOLES/VOLU ME] IN SERUM OR PLASMA 5.0 meq/L 3.5 - 5 01/23 Specimen Type: PLASMA Comment: No hemolysis noted. Ordering Provider: MISHA GARRETT OD Report Released Date/Time: Jan 23, 2025 01:06 PM Reporting Lab: [place] [address] [place] [address] Performing Lab: [place] [address] [facility] [phone] [facility] COMPREHENS PAULA METABOLIC PANEL CHLORIDE [MOLES/VOLU ME] IN SERUM OR PLASMA 108 meq/L 98 - 107 01/23 H Specimen Type: PLASMA Comment: No hemolysis noted. Ordering Provider: MISHA GARRETT OD Report Released Date/Time: Jan 23, 2025 01:06 PM Reporting Lab: [place] [address] [place] [phone] Performing Lab: [place] [address] [place] [phone] [facility] COMPREHENS PAULA METABOLIC PANEL CARBON DIOXIDE, TOTAL [MOLES/VOLU ME] IN SERUM OR PLASMA 17 meq/L 22 - 31 01/23 L Specimen Type: PLASMA Comment: No hemolysis noted. Ordering Provider: MISHA GARRETT OD Report Released Date/Time: Jan 23, 2025 01:06 PM Reporting Lab: [facility] [place] [phone] Performing Lab: [place] [address] [facility] [phone] [facility] COMPREHENS PAULA METABOLIC PANEL CALCIUM [MASS/VOLUM E] IN SERUM OR PLASMA 9.2 mg/dL 8.4 - 10.4 01/23 Specimen Type: PLASMA Comment: No hemolysis noted. Ordering Provider: MISHA GARRETT OD Report Released Date/Time: Jan 23, 2025 01:06 PM Reporting Lab: [facility] [place] [place] [address] Performing Lab: [facility] [address] [facility] [phone] [facility] COMPREHENS PAULA METABOLIC PANEL PROTEIN [MASS/VOLUM E] IN SERUM OR PLASMA 7.7 g/dL 6 - 8.6 01/23 Specimen Type: PLASMA Comment: No hemolysis noted. Ordering Provider: MISHA GARRETT OD Report Released Date/Time: Jan 23, 2025 01:06 PM Reporting Lab: [place] [address] [place] [phone] Performing Lab: [place] [phone] [facility] COMPREHENS PAULA METABOLIC PANEL ALBUMIN [MASS/VOLUM E] IN SERUM OR PLASMA 4.1 g/dL 3.4 - 5 01/23 Specimen Type: PLASMA Comment: No hemolysis noted. Ordering Provider: MISHA GARRETT OD Report Released Date/Time: Jan 23, 2025 01:06 PM Reporting Lab: [place] [address] [facility] [phone] Performing Lab: [place] [phone] [facility] COMPREHENS PAULA METABOLIC PANEL BILIRUBIN.T OTAL [MASS/VOLUM E] IN SERUM OR PLASMA 0.5 mg/dL 0.2 - 1.2 01/23 Specimen Type: PLASMA Comment: No hemolysis noted. Ordering Provider: MISHA GARRETT OD Report Released Date/Time: Jan 23, 2025 01:06 PM Reporting Lab: [place] [address] [facility] [phone] Performing Lab: [place] [phone] [facility] COMPREHENS PAULA METABOLIC PANEL ALKALINE PHOSPHATASE [ENZYMATIC ACTIVITY/VO LUME] IN SERUM OR PLASMA 73 U/L 40 - 150 01/23 Specimen Type: PLASMA Comment: No hemolysis noted. Ordering Provider: MISHA GARRETT OD Report Released Date/Time: Jan 23, 2025 01:06 PM Reporting Lab: [facility] [address] [facility] [phone] Performing Lab: [place] [address] [facility] [phone] [place] [address] [facility] COMPREHENS PAULA METABOLIC PANEL ASPARTATE AMINOTRANSF ERASE [ENZYMATIC ACTIVITY/VO LUME] IN SERUM OR PLASMA 18 U/L 5 - 34 01/23 Specimen Type: PLASMA Comment: No hemolysis noted. Ordering Provider: MISHA GARRETT OD Report Released Date/Time: Jan 23, 2025 01:06 PM Reporting Lab: [facility] [address] [facility] [phone] Performing Lab: [place] [address] [place] [phone] [facility] COMPREHENS PAULA METABOLIC PANEL ALANINE AMINOTRANSF ERASE [ENZYMATIC ACTIVITY/VO LUME] IN SERUM OR PLASMA 10 U/L 8 - 40 01/23 Specimen Type: PLASMA Comment: No hemolysis noted. Ordering Provider: MISHA GARRETT OD Report Released Date/Time: Jan 23, 2025 01:06 PM Reporting Lab: [place] [address] [facility] [phone] Performing Lab: [place] [address] [facility] [phone] [place] [address] [facility] COMPREHENS PAULA METABOLIC PANEL GLOMERULAR FILTRATION RATE/1.73 SQ M.PREDICTED [VOLUME RATE/AREA] IN SERUM, PLASMA OR BLOOD BY CREATININE- BASED FORMULA (CKD-EPI 2020) 51.1 60 01/23 Specimen Type: PLASMA Comment: No hemolysis noted. Ordering Provider: MISHA GARRETT OD Report Released Date/Time: Jan 23, 2025 01:06 PM Reporting Lab: [place] [address] [facility] [phone] Performing Lab: [address] [phone] [place] [address] [facility] HGA1C HEMOGLOBIN A1C/HEMOGLO BIN.TOTAL IN BLOOD 8.1 4.0 - 6.0 01/23 H Specimen Type: BLOOD No comment entered. Ordering Provider: MISHA GARRETT OD Report Released Date/Time: Jan 23, 2025 01:06 PM Reporting Lab: [facility] [address] [place] [address] Performing Lab: [facility] [address] [place], [place] [phone] [address] [facility] CBC LEUKOCYTES [#/VOLUME] IN BLOOD BY AUTOMATED COUNT 7.8 10*3/u L 3.6 - 11.2 01/23 Specimen Type: BLOOD No comment entered. Ordering Provider: MISHA GARRETT OD Report Released Date/Time: Jan 23, 2025 01:06 PM Reporting Lab: [place] [address] Performing Lab: [address] [facility] CBC ERYTHROCYTE S [#/VOLUME] IN BLOOD BY AUTOMATED COUNT 4.49 10*6/u L 4.10 - 5.70 01/23 Specimen Type: BLOOD No comment entered. Ordering Provider: MISHA GARRETT OD Report Released Date/Time: Jan 23, 2025 01:06 PM Reporting Lab: [facility] [address] [place] [address] Performing Lab: [facility] [address] [place] [address] [facility] CBC HEMOGLOBIN [MASS/VOLUM E] IN BLOOD 14.4 g/dL 13.1 - 16.8 01/23 Specimen Type: BLOOD No comment entered. Ordering Provider: MISHA GARRETT OD Report Released Date/Time: Jan 23, 2025 01:06 PM Reporting Lab: [facility] [address] [place] [address] Performing Lab: [address] [facility] CBC HEMATOCRIT [VOLUME FRACTION] OF BLOOD 44.6 38.2 - 48.4 01/23 Specimen Type: BLOOD No comment entered. Ordering Provider: MISHA GARRETT OD Report Released Date/Time: Jan 23, 2025 01:06 PM Reporting Lab: [facility] [address] [place] [address] Performing Lab: [place] [phone] [facility] CBC MCV [ENTITIC VOLUME] BY AUTOMATED COUNT 99.3 fL 80.0 - 100.0 01/23 Specimen Type: BLOOD No comment entered. Ordering Provider: MISHA GARRETT OD Report Released Date/Time: Jan 23, 2025 01:06 PM Reporting Lab: [place] [address] Performing Lab: [address] [facility] CBC MCH [ENTITIC MASS] BY AUTOMATED COUNT 32.1 pg 27.0 - 34.0 01/23 Specimen Type: BLOOD No comment entered. Ordering Provider: MISHA GARRETT OD Report Released Date/Time: Jan 23, 2025 01:06 PM Reporting Lab: [place] [address] Performing Lab: [address] [facility] CBC MCHC [MASS/VOLUM E] BY AUTOMATED COUNT 32.3 g/dL 33.0 - 36.0 01/23 L Specimen Type: BLOOD No comment entered. Ordering Provider: MISHA GARRETT OD Report Released Date/Time: Jan 23, 2025 01:06 PM Reporting Lab: [facility] [address] [place] [address] Performing Lab: [address] [facility] CBC PLATELETS [#/VOLUME] IN BLOOD BY AUTOMATED COUNT 319 10*3/u L 150 - 400 01/23 Specimen Type: BLOOD No comment entered. Ordering Provider: MISHA GARRETT OD Report Released Date/Time: Jan 23, 2025 01:06 PM Reporting Lab: [facility] [address] [place] [address] Performing Lab: [facility] [address] [facility] [phone] [place] [address] [facility] CBC PLATELET MEAN VOLUME [ENTITIC VOLUME] IN BLOOD BY AUTOMATED COUNT 9.4 fL 7.5 - 11.2 01/23 Specimen Type: BLOOD No comment entered. Ordering Provider: MISHA GARRETT OD Report Released Date/Time: Jan 23, 2025 01:06 PM Reporting Lab: [facility] [address] [facility] [phone] Performing Lab: [place] [address] [place] [phone] [facility] CBC ERYTHROCYTE DISTRIBUTIO N WIDTH [RATIO] BY AUTOMATED COUNT 13.0 11.8 - 15.1 01/23 Specimen Type: BLOOD No comment entered. Ordering Provider: MISHA GARRETT OD Report Released Date/Time: Jan 23, 2025 01:06 PM Reporting Lab: [facility] [place] [address] Performing Lab: [place] [address] [place] [phone] [facility] CBC LYMPHOCYTES /100 LEUKOCYTES IN BLOOD BY AUTOMATED COUNT 18 01/23 Specimen Type: BLOOD No comment entered. Ordering Provider: MISHA GARRETT OD Report Released Date/Time: Jan 23, 2025 01:06 PM Reporting Lab: [facility] [address] [place] [address] Performing Lab: [facility] [address] [place] [phone] [place] [address] [facility] CBC MONOCYTES/1 00 LEUKOCYTES IN BLOOD BY AUTOMATED COUNT 8 01/23 Specimen Type: BLOOD No comment entered. Ordering Provider: MISHA GARRETT OD Report Released Date/Time: Jan 23, 2025 01:06 PM Reporting Lab: [facility] [phone] Performing Lab: [facility] [address] [facility] [address] [facility] CBC NEUTROPHILS /100 LEUKOCYTES IN BLOOD BY AUTOMATED COUNT 72 01/23 Specimen Type: BLOOD No comment entered. Ordering Provider: MISHA GARRETT OD Report Released Date/Time: Jan 23, 2025 01:06 PM Reporting Lab: [facility] [address] [place] [address] Performing Lab: [facility] [address] [place], [place] [phone] [address] [facility] CBC EOSINOPHILS /100 LEUKOCYTES IN BLOOD BY AUTOMATED COUNT 2 01/23 Specimen Type: BLOOD No comment entered. Ordering Provider: MISHA GARRETT OD Report Released Date/Time: Jan 23, 2025 01:06 PM Reporting Lab: [place] [phone] Performing Lab: [address] [facility] CBC BASOPHILS/1 00 LEUKOCYTES IN BLOOD BY AUTOMATED COUNT 0 01/23 Specimen Type: BLOOD No comment entered. Ordering Provider: MISHA GARRETT OD Report Released Date/Time: Jan 23, 2025 01:06 PM Reporting Lab: [facility] [address] [place], [place] [phone] Performing Lab: [place] [phone] [facility] CBC LYMPHOCYTES [#/VOLUME] IN BLOOD BY AUTOMATED COUNT 1.39 10*3/u L 0.77 - 4.50 01/23 Specimen Type: BLOOD No comment entered. Ordering Provider: MISHA GARRETT OD Report Released Date/Time: Jan 23, 2025 01:06 PM Reporting Lab: [facility] [address] [place], [place] [phone] Performing Lab: [address] [phone] [facility] CBC MONOCYTES [#/VOLUME] IN BLOOD BY AUTOMATED COUNT 0.61 10*3/u L 0.19 - 0.80 03/03 /2025 Specimen Type: BLOOD No comment entered. Ordering Provider: MISHA GARRETT OD Report Released Date/Time: Jan 23, 2025 01:06 PM Reporting Lab: [place] [address] Performing Lab: [place] [phone] [facility] CBC NEUTROPHILS [#/VOLUME] IN BLOOD BY AUTOMATED COUNT 5.62 10*3/u L 2.10 - 8.00 01/23 Specimen Type: BLOOD No comment entered. Ordering Provider: MISHA GARRETT OD Report Released Date/Time: Jan 23, 2025 01:06 PM Reporting Lab: [place] [address] Performing Lab: [address] [facility] CBC EOSINOPHILS [#/VOLUME] IN BLOOD BY AUTOMATED COUNT 0.13 10*3/u L 0.00 - 0.60 01/23 Specimen Type: BLOOD No comment entered. Ordering Provider: MISHA GARRETT OD Report Released Date/Time: Jan 23, 2025 01:06 PM Reporting Lab: [place] [address] Performing Lab: [address] [facility] CBC BASOPHILS [#/VOLUME] IN BLOOD BY AUTOMATED COUNT 0.03 10*3/u L 0.00 - 0.20 01/23 Specimen Type: BLOOD No comment entered. Ordering Provider: MISHA GARRETT OD Report Released Date/Time: Jan 23, 2025 01:06 PM Reporting Lab: [place] [address] Performing Lab: [address] [facility] VITAMIN D, 25-HYDROXY 25-HYDROXYV ITAMIN D3 [MASS/VOLUM E] IN SERUM OR PLASMA 36.3 ng/mL 30 - 96 01/23 Specimen Type: SERUM No comment entered. Ordering Provider: MISHA GARRETT OD Report Released Date/Time: Jan 23, 2025 01:06 PM Reporting Lab: [place] [address] Performing Lab: [address] [facility] TSH W/ REFLEX FT4 (STL) THYROTROPIN [UNITS/VOLU ME] IN SERUM OR PLASMA 1.164 u[IU]/ mL 0.47 - 5 01/23 Specimen Type: PLASMA No comment entered. Ordering Provider: MISHA GARRETT OD Report Released Date/Time: Jan 23, 2025 01:06 PM Reporting Lab: [place] [address] Performing Lab: [address] [facility] MICRAL/CRE AT PROFILE (STL) ALBUMIN [MASS/VOLUM E] IN URINE 5.8 mg/L 01/23 Specimen Type: URINE No comment entered. Ordering Provider: MISHA GARRETT OD Report Released Date/Time: Jan 23, 2025 01:06 PM Reporting Lab: [place] [address] Performing Lab: [address] [facility] MICRAL/CRE AT PROFILE (STL) ALBUMIN/CRE ATININE [MASS RATIO] IN URINE 11 mg/g 0 - 29 01/23 Specimen Type: URINE No comment entered. Ordering Provider: MISHA GARRETT OD Report Released Date/Time: Jan 23, 2025 01:06 PM Reporting Lab: [place] [address] Performing Lab: [address] [facility] MICRAL/CRE AT PROFILE (STL) CREATININE [MASS/VOLUM E] IN URINE 51.0 mg/dL 63 - 166 01/23 L Specimen Type: URINE No comment entered. Ordering Provider: MISHA GARRETT OD Report Released Date/Time: Jan 23, 2025 01:06 PM Reporting Lab: [address] [address] Performing Lab: [address] [address] [facility] LIPID PANEL (STL) CHOLESTEROL [MASS/VOLUM E] IN SERUM OR PLASMA 149 mg/dL 0 - 200 10/27 Specimen Type: PLASMA Comment: No hemolysis noted. Ordering Provider: ARYAN WALKER Report Released Date/Time: Oct 27, 2023 10:27 AM Reporting Lab: [address] [address] Performing Lab: [address] [address] [facility] LIPID PANEL (STL) TRIGLYCERID E [MASS/VOLUM E] IN SERUM OR PLASMA 215 mg/dL 0 - 150 10/27 H Specimen Type: PLASMA Comment: No hemolysis noted. Ordering Provider: ARYAN WALKER Report Released Date/Time: Oct 27, 2023 10:27 AM Reporting Lab: [address] [address] Performing Lab: [address] [address] [facility] LIPID PANEL (STL) CHOLESTEROL IN LDL [MASS/VOLUM E] IN SERUM OR PLASMA BY CALCULATION 69 mg/dL 10/27 Specimen Type: PLASMA Comment: No hemolysis noted. Ordering Provider: ARYAN WALKER Report Released Date/Time: Oct 27, 2023 10:27 AM Reporting Lab: [address] [address] Performing Lab: [address] [address] [facility] LIPID PANEL (STL) CHOLESTEROL IN HDL [MASS/VOLUM E] IN SERUM OR PLASMA 37 mg/dL 40 10/27 L Specimen Type: PLASMA Comment: No hemolysis noted. Ordering Provider: ARYAN WALKER Report Released Date/Time: Oct 27, 2023 10:27 AM Reporting Lab: [place] [address] [facility] [address] Performing Lab: [place] [address] [facility] [address] [facility] COMPREHENS PAULA METABOLIC PANEL CREATININE [MASS/VOLUM E] IN SERUM OR PLASMA 1.43 mg/dL 0.7 - 1.3 10/27 H Specimen Type: PLASMA Comment: No hemolysis noted. Ordering Provider: ARYAN WALKER Report Released Date/Time: Oct 27, 2023 10:27 AM Reporting Lab: [place] [address] [facility] [address] Performing Lab: [place] [address] [facility] [address] [facility] COMPREHENS [place]ULA METABOLIC PANEL UREA NITROGEN [MASS/VOLUM E] IN SERUM OR PLASMA 24.6 mg/dL 9.0 - 25.0 10/27 Specimen Type: PLASMA Comment: No hemolysis noted. Ordering Provider: ARYAN WALKER Report Released Date/Time: Oct 27, 2023 10:27 AM Reporting Lab: [place] [address] [facility] [address] Performing Lab: [place] [address] [facility] [address] [facility] COMPREHENS [place]UL[place] METABOLIC PANEL GLUCOSE [MASS/VOLUM E] IN SERUM OR PLASMA 105 mg/dL 72 - 99 10/27 H Specimen Type: PLASMA Comment: No hemolysis noted. Ordering Provider: ARYAN WALKER Report Released Date/Time: Oct 27, 2023 10:27 AM Reporting Lab: [place] [address] [facility] [address] Performing Lab: [place] [id number] [facility] [address] [facility] COMPREHENS [place]ULA METABOLIC PANEL SODIUM [MOLES/VOLU ME] IN SERUM OR PLASMA 139 meq/L 136 - 145 10/27 Specimen Type: PLASMA Comment: No hemolysis noted. Ordering Provider: ARYAN WALKER Report Released Date/Time: Oct 27, 2023 10:27 AM Reporting Lab: [address] [address] Performing Lab: [address] [address] [facility] COMPREHENS [place] METABOLIC PANEL POTASSIUM [MOLES/VOLU ME] IN SERUM OR PLASMA 5.4 meq/L 3.5 - 5 10/27 H Specimen Type: PLASMA Comment: No hemolysis noted. Ordering Provider: ARYAN WALKER Report Released Date/Time: Oct 27, 2023 10:27 AM Reporting Lab: [place] [address] [facility] [address] Performing Lab: [address] [address] [facility] COMPREHENS [place] METABOLIC PANEL CHLORIDE [MOLES/VOLU ME] IN SERUM OR PLASMA 110 meq/L 98 - 107 10/27 H Specimen Type: PLASMA Comment: No hemolysis noted. Ordering Provider: ARYAN WALKER Report Released Date/Time: Oct 27, 2023 10:27 AM Reporting Lab: [address] [address] Performing Lab: [address] [address] [facility] COMPREHENS [place] METABOLIC PANEL CARBON DIOXIDE, TOTAL [MOLES/VOLU ME] IN SERUM OR PLASMA 19 meq/L 22 - 31 10/27 L Specimen Type: PLASMA Comment: No hemolysis noted. Ordering Provider: ARYAN WALKER Report Released Date/Time: Oct 27, 2023 10:27 AM Reporting Lab: [place] [address] [place] [facility] [place] [address] Performing Lab: [place] [address] [facility] [address] [facility] COMPREHENS [place] METABOLIC PANEL CALCIUM [MASS/VOLUM E] IN SERUM OR PLASMA 9.4 mg/dL 8.4 - 10.4 10/27 Specimen Type: PLASMA Comment: No hemolysis noted. Ordering Provider: ARYAN WALKER Report Released Date/Time: Oct 27, 2023 10:27 AM Reporting Lab: [place] [address] [facility] [address] Performing Lab: [place] [address] [facility] [address] [facility] COMPREHENS [place] METABOLIC PANEL PROTEIN [MASS/VOLUM E] IN SERUM OR PLASMA 7.9 g/dL 6 - 8.6 10/27 Specimen Type: PLASMA Comment: No hemolysis noted. Ordering Provider: ARYAN WALKER Report Released Date/Time: Oct 27, 2023 10:27 AM Reporting Lab: [place] [address] [facility] [address] Performing Lab: [place] [address] [facility] [address] [facility] COMPREHENS [place] METABOLIC PANEL ALBUMIN [MASS/VOLUM E] IN SERUM OR PLASMA 4.5 g/dL 3.4 - 5 10/27 Specimen Type: PLASMA Comment: No hemolysis noted. Ordering Provider: ARYAN WALKER Report Released Date/Time: Oct 27, 2023 10:27 AM Reporting Lab: [place] [address] [facility] [address] Performing Lab: [address] [address] [facility] COMPREHENS [place] METABOLIC PANEL BILIRUBIN.T OTAL [MASS/VOLUM E] IN SERUM OR PLASMA 0.3 mg/dL 0.2 - 1.2 10/27 Specimen Type: PLASMA Comment: No hemolysis noted. Ordering Provider: ARYAN WALKER Report Released Date/Time: Oct 27, 2023 10:27 AM Reporting Lab: [facility] [address] [facility] [address] Performing Lab: [facility] [address] [facility] [address] [facility] COMPREHENS [facility]ULA METABOLIC PANEL ALKALINE PHOSPHATASE [ENZYMATIC ACTIVITY/VO LUME] IN SERUM OR PLASMA 51 U/L 40 - 150 10/27 Specimen Type: PLASMA Comment: No hemolysis noted. Ordering Provider: ARYAN WALKER Report Released Date/Time: Oct 27, 2023 10:27 AM Reporting Lab: [facility] [address] [facility] [address] Performing Lab: [facility] [address] [place] [address] [facility] COMPREHENS [place]UL[place] METABOLIC PANEL ASPARTATE AMINOTRANSF ERASE [ENZYMATIC ACTIVITY/VO LUME] IN SERUM OR PLASMA 15 U/L 5 - 34 10/27 Specimen Type: PLASMA Comment: No hemolysis noted. Ordering Provider: ARYAN WALKER Report Released Date/Time: Oct 27, 2023 10:27 AM Reporting Lab: [facility] [address] [facility] [address] Performing Lab: [facility] [address] [place] [address] [facility] COMPREHENS [place] METABOLIC PANEL ALANINE AMINOTRANSF ERASE [ENZYMATIC ACTIVITY/VO LUME] IN SERUM OR PLASMA 8 U/L 8 - 40 10/27 Specimen Type: PLASMA Comment: No hemolysis noted. Ordering Provider: ARYAN WALKER Report Released Date/Time: Oct 27, 2023 10:27 AM Reporting Lab: [facility] [address] [place] [address] Performing Lab: [facility] [address] [place] [address] [facility] COMPREHENS [place]UL[place] METABOLIC PANEL GLOMERULAR FILTRATION RATE/1.73 SQ M.PREDICTED [VOLUME RATE/AREA] IN SERUM, PLASMA OR BLOOD BY CREATININE- BASED FORMULA (CKD-EPI 2020) 50.5 60 10/27 Specimen Type: PLASMA Comment: No hemolysis noted. Ordering Provider: ARYAN WALKER Report Released Date/Time: Oct 27, 2023 10:27 AM Reporting Lab: [address] [address] Performing Lab: [address] [address] [facility] CBC LEUKOCYTES [#/VOLUME] IN BLOOD BY AUTOMATED COUNT 6.0 10*3/u L 3.6 - 11.2 10/27 Specimen Type: BLOOD No comment entered. Ordering Provider: ARYAN WALKER Report Released Date/Time: Oct 27, 2023 10:27 AM Reporting Lab: [address] [address] Performing Lab: [address] [address] [facility] CBC ERYTHROCYTE S [#/VOLUME] IN BLOOD BY AUTOMATED COUNT 4.17 10*6/u L 4.10 - 5.70 10/27 Specimen Type: BLOOD No comment entered. Ordering Provider: ARYAN WALKER Report Released Date/Time: Oct 27, 2023 10:27 AM Reporting Lab: [place] [address] [facility] [address] Performing Lab: [address] [address] [facility] CBC HEMOGLOBIN [MASS/VOLUM E] IN BLOOD 13.0 g/dL 13.1 - 16.8 10/27 L Specimen Type: BLOOD No comment entered. Ordering Provider: ARYAN WALKER Report Released Date/Time: Oct 27, 2023 10:27 AM Reporting Lab: [address] [address] Performing Lab: [facility] [address] [facility] [address] [facility] CBC HEMATOCRIT [VOLUME FRACTION] OF BLOOD 41.5 38.2 - 48.4 10/27 Specimen Type: BLOOD No comment entered. Ordering Provider: ARYAN WALKER Report Released Date/Time: Oct 27, 2023 10:27 AM Reporting Lab: [place] [address] [facility] [address] Performing Lab: [address] [address] [facility] CBC MCV [ENTITIC VOLUME] BY AUTOMATED COUNT 99.5 fL 80.0 - 100.0 10/27 Specimen Type: BLOOD No comment entered. Ordering Provider: ARYAN WALKER Report Released Date/Time: Oct 27, 2023 10:27 AM Reporting Lab: [place] [address] [facility] [address] Performing Lab: [address] [address] [facility] CBC MCH [ENTITIC MASS] BY AUTOMATED COUNT 31.2 pg 27.0 - 34.0 10/27 Specimen Type: BLOOD No comment entered. Ordering Provider: ARYAN WALKER Report Released Date/Time: Oct 27, 2023 10:27 AM Reporting Lab: [place] [address] [facility] [address] Performing Lab: [address] [address] [facility] CBC MCHC [MASS/VOLUM E] BY AUTOMATED COUNT 31.3 g/dL 33.0 - 36.0 10/27 L Specimen Type: BLOOD No comment entered. Ordering Provider: ARYAN WALKER Report Released Date/Time: Oct 27, 2023 10:27 AM Reporting Lab: [address] [address] Performing Lab: [facility] [address] [facility] [address] [facility] CBC PLATELETS [#/VOLUME] IN BLOOD BY AUTOMATED COUNT 371 10*3/u L 150 - 400 10/27 Specimen Type: BLOOD No comment entered. Ordering Provider: ARYAN WALKER Report Released Date/Time: Oct 27, 2023 10:27 AM Reporting Lab: [address] [address] Performing Lab: [place] [address] [facility] [address] [facility] CBC PLATELET MEAN VOLUME [ENTITIC VOLUME] IN BLOOD BY AUTOMATED COUNT 9.3 fL 7.5 - 11.2 10/27 Specimen Type: BLOOD No comment entered. Ordering Provider: ARYAN WALKER Report Released Date/Time: Oct 27, 2023 10:27 AM Reporting Lab: [place] [address] [facility] [address] Performing Lab: [place] [address] [facility] [address] [facility] CBC ERYTHROCYTE DISTRIBUTIO N WIDTH [RATIO] BY AUTOMATED COUNT 12.7 11.8 - 15.1 10/27 Specimen Type: BLOOD No comment entered. Ordering Provider: ARYAN WALKER Report Released Date/Time: Oct 27, 2023 10:27 AM Reporting Lab: [address] [address] Performing Lab: [facility] [address] [facility] [address] [facility] CBC LYMPHOCYTES /100 LEUKOCYTES IN BLOOD BY AUTOMATED COUNT 25 10/27 Specimen Type: BLOOD No comment entered. Ordering Provider: ARYAN WALKER Report Released Date/Time: Oct 27, 2023 10:27 AM Reporting Lab: [address] [address] Performing Lab: [address] [place] [address] [facility] CBC MONOCYTES/1 00 LEUKOCYTES IN BLOOD BY AUTOMATED COUNT 8 10/27 Specimen Type: BLOOD No comment entered. Ordering Provider: ARYAN WALKER Report Released Date/Time: Oct 27, 2023 10:27 AM Reporting Lab: [facility] [address] [place] [address] Performing Lab: [facility] [address] [place] [address] [facility] CBC NEUTROPHILS /100 LEUKOCYTES IN BLOOD BY AUTOMATED COUNT 60 10/27 Specimen Type: BLOOD No comment entered. Ordering Provider: ARYAN WALKER Report Released Date/Time: Oct 27, 2023 10:27 AM Reporting Lab: [facility] [address] [place] [address] Performing Lab: [facility] [address] [place] [address] [facility] CBC EOSINOPHILS /100 LEUKOCYTES IN BLOOD BY AUTOMATED COUNT 6 10/27 Specimen Type: BLOOD No comment entered. Ordering Provider: ARYAN WALKER Report Released Date/Time: Oct 27, 2023 10:27 AM Reporting Lab: [facility] [address] [place] [address] Performing Lab: [facility] [address] [place] [address] [facility] CBC BASOPHILS/1 00 LEUKOCYTES IN BLOOD BY AUTOMATED COUNT 1 10/27 Specimen Type: BLOOD No comment entered. Ordering Provider: ARYAN WALKER Report Released Date/Time: Oct 27, 2023 10:27 AM Reporting Lab: [facility] [address] [place] [address] Performing Lab: [facility] [address] [place] [address] [facility] CBC LYMPHOCYTES [#/VOLUME] IN BLOOD BY AUTOMATED COUNT 1.49 10*3/u L 0.77 - 4.50 10/27 Specimen Type: BLOOD No comment entered. Ordering Provider: ARYAN WALKER Report Released Date/Time: Oct 27, 2023 10:27 AM Reporting Lab: [address] [address] Performing Lab: [address] [address] [facility] CBC MONOCYTES [#/VOLUME] IN BLOOD BY AUTOMATED COUNT 0.50 10*3/u L 0.19 - 0.80 10/27 Specimen Type: BLOOD No comment entered. Ordering Provider: ARYAN WALKER Report Released Date/Time: Oct 27, 2023 10:27 AM Reporting Lab: [address] [address] Performing Lab: [address] [phone] CBC NEUTROPHILS [#/VOLUME] IN BLOOD BY AUTOMATED COUNT 3.64 10*3/u L 2.10 - 8.00 10/27 Specimen Type: BLOOD No comment entered. Ordering Provider: ARYAN WALKER Report Released Date/Time: Oct 27, 2023 10:27 AM Reporting Lab: [address] [address] Performing Lab: [address] [address] [facility] CBC EOSINOPHILS [#/VOLUME] IN BLOOD BY AUTOMATED COUNT 0.34 10*3/u L 0.00 - 0.60 10/27 Specimen Type: BLOOD No comment entered. Ordering Provider: ARYAN WALKER Report Released Date/Time: Oct 27, 2023 10:27 AM Reporting Lab: [address] [address] Performing Lab: [address] [address] [facility] CBC BASOPHILS [#/VOLUME] IN BLOOD BY AUTOMATED COUNT 0.04 10*3/u L 0.00 - 0.20 10/27 Specimen Type: BLOOD No comment entered. Ordering Provider: ARYAN WALKER Report Released Date/Time: Oct 27, 2023 10:27 AM Reporting Lab: [facility] [address] [place] [facility] [address] Performing Lab: [facility] [address] [facility] [address] [facility] Vital Signs Combined list of inpatient and outpatient Vital Signs from Department of [facility] and [facility], ranging from 12 months to all on record, depending upon the facility. Vital Sign Value Date Comments Source SYSTOLIC BLOOD PRESSURE 137 01/23/2025 13:33:55 [facility] DIASTOLIC BLOOD PRESSURE 74 01/23/2025 [facility] P[facility] 95 01/23/2025 13:33:55 [facility] WEIGHT 216 01/23/2025 13:33:[address] [facility] [facility] BMI 33 kg/m2 01/23/2025 13:33:[address] [facility] [facility] PAIN 0 01/23/2025 13:33:[facility] HEIGHT 68 01/23/2025 13:33:[address] [facility] [facility] TEMPERATURE 97.6 01/23/2025 13:33:55 [facility] PULSE 68 01/23/2025 13:33:[address] [facility] [facility] RESPIRATION 18 01/23/2025 13:33:55 [facility] Encounters Combined list of: 1) Encounters from [facility] facilities going backup to the last 18 months, not all [place] inpatient encounters are included; 2) Encounters from the Department of Defense facilities going backup to 280 months. Location Location Details Encounter Type Encounter Number Reason For Visit Attending Provider ADM Date DC Date Status Disposition Source [facility] Outpatient Encounter [id number] 08/23 [facility] Outpatient Encounter [id number] Tsering BOUCHER MY N 10/23 [facility] N [facility] Outpatient Encounter [id number] 10/26 [facility] OFFICE O/P EST MOD 30-39 MIN [id number] Diagnos is: ICD-10- CM I10 Essenti al (primar y) hyperte nsion ARYAN WALKER IS J 10/27 [facility] OFFICE O/P EST MOD 30-39 MIN [id number] Diagnos is: ICD-10- CM Z00.01 Encount er for general adult medical exam w abnorma l finding s ARYAN WALKER IS J 10/27 [facility] HEARING AID SUP/ACCESS /DEV [id number] Diagnos is: ICD-10- CM H90.3 Sensori neural hearing loss, bilater al FARHAN GUTIERREZ 10/30 [facility] Outpatient Encounter [id number] 11/04 [facility] Outpatient Encounter [id number] 11/10 [facility] PSYTX W PT 30 MINUTES [id number] Diagnos is: ICD-10- CM F43.23 Adjustm ent disorde r with mixed anxiety and depress ed mood Ephraim MOHAN 11/30 [facility] Outpatient Encounter [id number] 12/10 [facility] Outpatient Encounter [id number] [place] A 12/13 [facility] N [facility] Outpatient Encounter [id number] 12/23 [facility] PSYTX W PT 30 MINUTES [id number] Diagnos is: ICD-10- CM F43.23 Adjustm ent disorde r with mixed anxiety and depress ed mood Ephraim MOHAN ARVA 01/18 [facility] Outpatient Encounter [id number] 01/26 [facility] Outpatient Encounter [id number] GRAY ESQUIVEL O 02/10 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 Diagnos is: ICD-10- CM Z51.81 Encount er for therape utic drug level monitor RENATA Torres 07/07 [facility] Outpatient Encounter [id number] 07/08 [facility] Outpatient Encounter [id number] 07/18 [facility] PSYTX W PT 30 MINUTES [id number] Diagnos is: ICD-10- CM 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 Ephraim MOHAN 08/15 [facility] Outpatient Encounter [id number] 09/19 [facility] PSYTX W PT 30 MINUTES [id number] Diagnos is: ICD-10- CM 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 Ephraim MOHAN 10/10 [facility] Outpatient Encounter [id number] 11/08 [facility] Outpatient Encounter [id number] 11/14 [facility] NQHP OL DIG ASSMT&MGMT 5-10 [id number] Diagnos is: ICD-10- CM Z51.81 Encount er for therape utic drug level monitor lenin SWIFTTsering NNA P 11/28 [facility] NQ OL DIG ASSMT&MGMT 5-10 [id number] Diagnos is: ICD-10- CM Z51.81 Encount er for therape utic drug level monitor lenin GEOFF WYATT 11/29 [facility] PSYTX W PT 30 MINUTES [id number] Diagnos is: ICD-10- CM 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 Social History Type Response Date Comment Sourc e Tobacco smoking status NHIS VA-TOBACCO NEVER USED CIGARETTES 01/23/2025 [facility] History of tobacco use VA-TOBACCO NEVER USED OTHER TYPE 01/23/2025 [facility] History of tobacco use VA-TOBACCO NEVER USED 10/23/2023 [facility] History of tobacco use VA-TOBACCO NEVER USED 10/28/2022 [facility] History of tobacco use VA-TOBACCO NEVER USED 10/29/2021 [facility] History of tobacco use VA-TOBACCO FORMER USER 10/23/2020 [facility] History of tobacco use VA-TOBACCO QUIT 15 YRS OR MORE 10/10/2019 [facility] Plan of Care List of future care activities from Department of [facility] Affairs facilities. Additional future care activities may be listed in the Assessment and Plan section. Date/Time Care Activity Care Activity Detail Facili ty 03/20/2025 AMBULATORY - MEDICINE AMBULATORY - MEDICI [facility] Advance Directives List of completed, amended, or rescinded Advance Directives on record at Department of Veterans Affairs facilities. An actual copy of the Directive is not included. Date Advance Directive Provider Source 10/28/2019 ADVANCE DIRECTIVE DISCUSSION Onur [facility]
--- OUTSIDE RECORDS SUMMARY | 2025-02-28 11:07 | XMS_ITS ---
Author Organization [facility] Address [address] [place], [place] [id number] Care Team Providers Care Drafter (Cad) Electrical Name Role Phone HAYDEN RADHA Unavailable [phone] Yonas Chapa Unavailable Unavailable REASON FOR VISIT *General care Social History Tobacco Use: Social History Observation Description Date Details (start date - stop date) Never Smoker NA - NA Tobacco Use/Smoking Question Answer Notes Tobacco use: nonsmoker Vital Signs Height 68 in 02/23/2025 Weight 220 lbs 02/23/2025 BMI 33.45 kg/m2 02/23/2025 Height-cm 172.72 cm 02/23/2025 Weight-kg 99.79 kg 02/23/2025 Encounters Encounter Location Date Provider Diagnosis [facility] [place] [address] [place], [place] [id number] 02/23/2025 RADHA FORREST Onychomycosis B35.1 ; Pain in right toe(s) M79.674 ; Pain in left toe(s) M79.675 and Unspecified atherosclerosis of [place] arteries of extremities, bilateral legs I70.203 Assessments Encounter Date Diagnosis (ICD Code) Assessment Notes Treatment Notes Treatment Clinical Notes Section Notes 02/23/2025 Onychomycosis (ICD-10 - B35.1) 02/23/2025 Pain in right toe(s) (ICD-10 - M79.674) 02/23/2025 Pain in left toe(s) (ICD-10 - M79.675) 02/23/2025 Unspecified atherosclerosis of [place] arteries of extremities, bilateral legs (ICD-10 - I70.203) 02/23/2025 Other Nails 1-5 Bilateral were debrided extensively [...] BAXTER, 05/04/2025 09:20:00 AM, [address], [address], [id number], Progress Notes * PEGGY GUERRAANNIDOB:[birth year] (79 yo M)Acc No.[id number]:02/23/2025 Patient: NAVEEN VALENTIN Provider: Beatrice Forrest DPM :1945 A ge:79 Y S ex:Male Date:02/23/2025 Address:[address] [place] [address] Subjective: * Chief Complaints: * 1 . *General care. * HPI: H PI: General care P atient presents to the office for diabetic foot care. Patient states that their nails are thickened, elongated and painful. Patient states that it is aggravated by shoe gear. Onset is gradual., Patient is taking prescription blood thinners., Date last seen by Dr. Chapa was November 2024. , Initials ars. * ROS: G eneral / Constitutional: Patient denies c hange in appetite, fatigue, chills, fever.? C ardiovascular: Chest pain d enies. N eurologic: Loss of use of extremity d enies. * Medical History: A rthritis, Cancer (type of cancer), Sleep apnea, Back Trouble, Diabetic, Hypertension. * Family History: F ather: unknown, Diabetic. M other: unknown, Diabetic. * Social History: T obacco Use: T obacco Use/Smoking T obacco use: n onsmoker D rugs/Alcohol: D o you drink alcohol?: No. * Medications: N one Objective: * Vitals: W t: 220 lbs, [...] M79.675 4 . U nspecified atherosclerosis of [place] arteries of extremities, bilateral legs - I70.203 Plan: * Treatment: * Follow Up: 9 weeks * Billing Information: * Visit Code: * Procedure Codes: * Electronic signature of RADHA FORREST DPM on 02/28/2025 at 11:07 AM CDT Sign off status: Pending * Provider: Beatrice Forrest DPM Date: 0 02/23/2025 Generated for Ofelia sanches/Laverne/Stephanie on: 0 02/28/2025 [...] Date last seen by Dr. Chapa was November 2024. , Initials ars Examination Category Sub-Category Detail Notes Category Not [...]
--- OUTSIDE RECORDS SUMMARY | 2025-02-28 11:07 | XMS_ITS | Encounter Summary ---
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 Name Role Phone SULMA GARRETT Primary Care [...] Patient's Relationship to Policy Garcia [employer] [place] MEDICARE SUPPLEMEN JOSUE MEDIC ARE SUPPL EMENT Nov 23, 2010 [id number] PEGGY GUERRA PATIENT MEDICARE (WNR) MEDICARE (M) PART A Oct 23, 2010 PART A [id number] PEGGY GUERRA PATIENT MEDICARE (WNR) MEDICARE (M) PART B Oct 23, 2010 PART B [id number] PEGGY GUERRA PATIENT MEDICARE (WNR) MEDICARE (M) PART A Oct 23, 2010 PART A [id number] [phone] PEGGY GUERRA PATIENT MEDICARE (WNR) MEDICARE (M) PART B Oct 23, 2010 PART B [id number] PEGGY GUERRA PATIENT Selected Encounter This section includes the information on record at [place] for the Encounter. Date/Time Encounter Type Encounter Description Reason Provider Source Nov 28, 2024 10:10 AM [facility] OL DIG ASSMT&MGMT 5-10 CLINICAL PHARMACY ICD-10-CM Z51.81 Encounter for therapeutic drug level monitoring JOSHUA SWIFT [facility] Encounter Template Text not used by [place] Assessments - Encounter Diagnoses This section includes the primary and secondary diagnoses documented for the Encounter. Date/Time Primary/Secondary Diagnosis Diagnosis Name Provider Source Nov 28, 2024 10:16 AM PRIMARY Encounter for therapeutic drug level monitoring JOSHUA SWIFT [facility] Nov 28, 2024 10:16 AM SECONDARY Chronic atrial fibrillation, unspecified JOSHUA [facility] Nov 28, 2024 10:16 AM SECONDARY retirement (current) use of anticoagulants JOSHUA SWIFT [facility] Plan of Treatment: Future Appointments (+ 6 months) and Future Tests (+/- 45 days) The Plan of Treatment section includes future care activities for the patient [facility]. This section includes future appointments and future orders which are active, pending or scheduled. Future Appointments This section includes appointments that were scheduled to occur 6 months from the date of the Encounter, up to a maximum of 20 appointments. The data comes from all [facility]. Appointment Date/Time Appointment Type Appointme nt Facility Name Dec 05, 2024 11:00 AM AMBULATORY - MEDICINE [facility] Jan 23, 2025 01:30 PM [facility]ONE [facility] Jan 23, 2025 01:31 PM AMBULATORY - NONE [facility] Jan 23, 2025 02:00 PM AMBULATORY - MEDICINE [facility] Mar 20, 2025 10:00 AM AMBULATORY - MEDICINE [facility] Active, Pending, and Scheduled [...] theEncounter. The data comes from all [facility]. Test Date/Time Test Type Test Details Facility Name Jan 11, 2025 12:00 AM Laboratory - Chemi stry Order HGB,HCT,PLT BLOOD SP [facility] Jan 11, 2025 12:00 AM Laboratory - Chemi stry Order CREATININE(EGFR) GREEN LI/HEP BLD/PLAS PLASMA SP [facility] Jan 11, 2025 12:00 AM Laboratory - Chemi stry Order AST/SGOT GREEN LI/HEP BLD/PLAS PLASMA SP [facility] Jan 11, 2025 12:00 AM Laboratory - Chemi stry Order ALT/SGPT GREEN LI/HEP BLD/PLAS PLASMA SP [facility] Social History: Smoking Status (Most current) and Tobacco Use (All prior to encounter date) This section includes the most current, and the historical, smoking and tobacco- related health factors from the [place] facility where the Encounter took place. Current Smoking Status This section includes the most current smoking, or tobacco-related health factor, from the [place] facility where the Encounter took place. Date/Time Current Smoking Status Comment Facil ity Oct 23, 2023 01:41 PM VA-TOBACCO NEVER USED [facility] Advance Directives: All historical and current Section Date Range: From patient's date of to the date document was created. This section includes ALL of a patient's completed or amended [place] Advance and Rescinded Directives. The entries below indicate that a directive exists for the patient, but an actual copy is not included with this document. The data comes from all [place] facilities. Date Advance Directives Provider Source Oct 28, 2019 ADVANCE DIRECTIVE DISCUSSION Onur SHERMAN [facility] Encounter Notes: All associated encounter [...] VALUE: 1.6 Date: November 08, 2024 Location: [facility] Measurement DT WEIGHT LB(KG)[BMI] 10/27/2023 09:53 205.1(93.03)[31*] [...] Lane, Pharm.D., WILLIAMCP Clinical Pharmacist JOSHUA SWIFT [facility]
--- OUTSIDE RECORDS SUMMARY | 2025-02-28 11:07 | XMS_ITS | Patient Health Record ---
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 Name Role Phone RADHA BLAKE Unavailable [phone] Yonas Chapa Unavailable Allergies No Known Allergies Reason For Referral No Information Social History Tobacco Use: Social History Observation Description Date Details (start date - stop date) Never Smoker NA - NA Tobacco Use/Smoking Question Answer Notes Tobacco use: nonsmoker Vital Signs Height-cm 172.72 cm 02/23/2025 Weight-kg 99.79 kg 02/23/2025 Height 68 in 02/23/2025 Weight 220 lbs 02/23/2025 BMI 33.45 kg/m2 02/23/2025 Encounters Encounter Location Date Provider Diagnosis [facility] [address] [place] [id number] 02/23/2025 RADHA BLAKE Onychomycosis B35.1 ; Pain in right toe(s) M79.674 ; Pain in left toe(s) M79.675 and Unspecified atherosclerosis of [place] arteries of extremities, bilateral legs I70.203 [facility] [address] [place], [place] [id number] 03/18/2024 RADHA BLAKE Onychomycosis B35.1 ; Pain in right toe(s) M79.674 ; Pain in left toe(s) M79.675 and Unspecified atherosclerosis of [place] arteries of extremities, bilateral legs I70.203 [facility] [address] [place], [place] [id number] 06/02/2024 RADHA BLAKE Onychomycosis B35.1 ; Pain in right toe(s) M79.674 ; Pain in left toe(s) M79.675 and Unspecified atherosclerosis of [place] arteries of extremities, bilateral legs I70.203 [facility] [place] [address] [place] [id number] 08/04/2024 ARDHAADDI BLAKE Onychomycosis B35.1 ; Pain in right toe(s) M79.674 ; Pain in left toe(s) M79.675 and Unspecified atherosclerosis of [place] arteries of extremities, bilateral legs I70.203 [facility] [place] [facility] [address] [place] [id number] 10/06/2024 RADHAADDI BLAKE Onychomycosis B35.1 ; Pain in right toe(s) M79.674 ; Pain in left toe(s) M79.675 and Unspecified atherosclerosis of [place] arteries of extremities, bilateral legs I70.203 [facility] [place] [facility] [address] [place] [id number] 12/22/2024 RADHAADDI BLAKE Onychomycosis B35.1 ; Pain in right toe(s) M79.674 ; Pain in left toe(s) M79.675 and Unspecified atherosclerosis of [place] arteries of extremities, bilateral legs I70.203 Assessments Encounter Date Diagnosis (ICD Code) Assessment Notes Treatment Notes Treatment Clinical Notes Section Notes 03/18/2024 Onychomycosis (ICD-10 - B35.1) 06/02/2024 Onychomycosis (ICD-10 - B35.1) 08/04/2024 Onychomycosis (ICD-10 - B35.1) 10/06/2024 Onychomycosis (ICD-10 - B35.1) 12/22/2024 Onychomycosis (ICD-10 - B35.1) 02/23/2025 Onychomycosis (ICD-10 - B35.1) 02/23/2025 Pain in right toe(s) (ICD-10 - M79.674) 12/22/2024 Pain in right toe(s) (ICD-10 - M79.674) 10/06/2024 Pain in right toe(s) (ICD-10 - M79.674) 08/04/2024 Pain in right toe(s) (ICD-10 - M79.674) 06/02/2024 Pain in right toe(s) (ICD-10 - M79.674) 03/18/2024 Pain in right toe(s) (ICD-10 - M79.674) 03/18/2024 Pain in left toe(s) (ICD-10 - M79.675) 06/02/2024 Pain in left toe(s) (ICD-10 - M79.675) 08/04/2024 Pain in left toe(s) (ICD-10 - M79.675) 10/06/2024 Pain in left toe(s) (ICD-10 - M79.675) 12/22/2024 Pain in left toe(s) (ICD-10 - M79.675) 02/23/2025 Pain in left toe(s) (ICD-10 - M79.675) 02/23/2025 Unspecified atherosclerosis of [place] arteries of extremities, bilateral legs (ICD-10 - I70.203) 12/22/2024 Unspecified atherosclerosis of [place] arteries of extremities, bilateral legs (ICD-10 - I70.203) 10/06/2024 Unspecified atherosclerosis of [place] arteries of extremities, bilateral legs (ICD-10 - I70.203) 08/04/2024 Unspecified atherosclerosis of [place] arteries of extremities, bilateral legs (ICD-10 - I70.203) 06/02/2024 Unspecified atherosclerosis of [place] arteries of extremities, bilateral legs (ICD-10 - I70.203) 03/18/2024 Unspecified atherosclerosis of [place] arteries of extremities, bilateral legs (ICD-10 - I70.203) 02/23/2025 Other Nails 1-5 Bilateral were debrided extensively with nail nippers and emery board, reducing length and girth to pink healthy tissue with any subungual debris and necrotic tissue removed 03/18/2024 Other Nails 1-5 Bilateral were debrided extensively with nail nippers and emery board, reducing length and girth to pink healthy tissue with any subungual debris and necrotic tissue removed 06/02/2024 Other Nails 1-5 Bilateral were debrided extensively with nail nippers and emery board, reducing length and girth to pink healthy tissue with any subungual debris and necrotic tissue removed 08/04/2024 Other Nails 1-5 Bilateral were debrided extensively with nail nippers and emery board, reducing length and girth to pink healthy tissue with any subungual debris and necrotic tissue removed 10/06/2024 Other Nails 1-5 Bilateral were debrided extensively with nail nippers and emery board, reducing length and girth to pink healthy tissue with any subungual debris and necrotic tissue removed 12/22/2024 Other Nails 1-5 Bilateral were debrided extensively with nail nippers and emery board, reducing length and girth to pink healthy tissue with any subungual debris and necrotic tissue removed Plan Of Treatment Next Appt Details Provider Name:RADHA Minda BAXTER, 05/04/2025 09:20:00 AM, [address], [facility], [place], [place], [id number], Insurance Providers Payer Name Payer Address Payer Phone Subscriber Number Group Number Insured Name Patient Relationship to Insured Coverage Start Date Coverage End Date Medicare Part B [facility] [address] [place] [phone] [id number] NAVEEN GUERRA Self - patient is the insured [email or web address] [id number] [place] [id number] NAVEEN GUERRA Self - patient is the insured Medical (General) History Medical History History ICD Code Arthritis Cancer (type of cancer) Sleep apnea Back Trouble Diabetic hypertension
--- OUTSIDE RECORDS SUMMARY | 2025-02-28 11:13 | XMS_ITS | Continuity of Care Document ---
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 and Veterans Affairs facilities. It does not include entries that were removed or entered in error. Problem Status Onset Date Problem Type Date of Resolution Comments Source Atrial fibrillation Active Condition 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 [facility] Obesity Active Condition [facility] Obstructive sleep apnea syndrome Active Condition [facility] Sensory hearing loss Active Condition [facility] Diagnosis: ICD-10-CM Z51.81 Encounter for therapeutic drug level monitoring Active Diagnosis [facility] Diagnosis: ICD-10-CM 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 Diagnosis: ICD-10-CM H90.3 Sensorineural hearing loss, bilateral Active Diagnosis [facility] Diagnosis: ICD-10-CM Z00.01 Encounter for general adult medical exam w abnormal findings Active Diagnosis [facility] Medications Combined list of outpatient medications from Department of [facility] and Veterans Affairs facilities.Medications provided include 1) outpatient medications from the last 15 months, and 2) patient-reported medications. Medication Details Route Status Patient Instructions Prescription Expires Prescription Number Last Dispense Date Ordering Provider Order Date Order Qty Source ACETAMINOPH EN 325MG TAB TAKE FOUR TABLETS BY MOUTH TWICE A DAY ORAL ACTIVE Minda CALDWELL 2021 [facility] [place] N CARVEDILOL 12.5MG TAB TAKE ONE-HALF TABLET BY MOUTH TWICE A DAY ORAL ACTIVE RADHA SCHULTZ 2018 [facility] EMPAGLIFLOZ IN 25MG TAB TAKE ONE TABLET BY MOUTH ONCE A DAY FOR DIABETES ORAL ACTIVE 12/27/2025 [id number] 5 Tsering WALKER J 2024 90 [facility] EMPAGLIFLOZ IN 25MG TAB TAKE ONE TABLET BY MOUTH ONCE A DAY FOR DIABETES ORAL DISCONT INUED 10/27/2024 [id number] Tsering WALKER J 2023 90 [facility] ESCITALOPRA M OXALATE 20MG TAB TAKE ONE-HALF TABLET BY MOUTH ONCE A DAY FOR MOOD ORAL ACTIVE 12/27/2025 [id number] 5 KATRINA GUTHRIE 2024 45 [facility] ESCITALOPRA M OXALATE 20MG TAB TAKE ONE-HALF TABLET BY MOUTH ONCE A DAY FOR MOOD ORAL DISCONT INUED 04/02/2025 [id number] 4 RADHA SCHULTZ 2023 45 [facility] ESCITALOPRA M OXALATE 20MG TAB TAKE ONE-HALF TABLET BY MOUTH ONCE A DAY FOR MOOD ORAL DISCONT INUED 03/31/2024 [id number] RADHA SCHULTZ 2022 45 [facility] FLUTICASONE PROPIONATE 50MCG/SPRAY SOLN,NASAL, 16GM INSTILL 1 SPRAY IN EACH NOSTRIL ONCE A DAY NASAL ACTIVE RADHA SCHULTZ 2018 [facility] LISINOPRIL 20MG TAB TAKE ONE-HALF TABLET BY MOUTH ONCE A DAY ORAL ACTIVE RADHA SCHULTZ 2018 [facility] LOVASTATIN 40MG TAB TAKE ONE TABLET BY MOUTH EVERY EVENING ORAL ACTIVE SCHULTZ RADHA SANTIAGO 2018 [facility] METFORMIN HCL 1000MG TAB TAKE ONE-HALF TABLET BY MOUTH TWICE A DAY WITH MEALS ORAL ACTIVE FADI GARRETT NOD K 2024 [facility] MULTIVITAMI NS W/MINERALS CAP/TAB TAKE 1 CAP/TAB BY MOUTH ONCE A DAY ORAL ACTIVE Minda CALDWELL 2021 [facility] N PROPAFENONE HCL 150MG TAB TAKE ONE TABLET BY MOUTH EVERY 8 HOURS ORAL ACTIVE SCHULTZRADHA JIMENEZ 2019 [facility] RIVAROXABAN 20MG TAB TAKE ONE TABLET BY MOUTH ONCE A DAY TO THIN BLOOD. TAKE WITH FOOD. ORAL ACTIVE 01/26/2026 [id number] CARRIE THOMAS 2024 90 [facility] RIVAROXABAN 20MG TAB TAKE ONE TABLET BY MOUTH ONCE A DAY TO THIN BLOOD. TAKE WITH FOOD. ORAL DISCONT INUED 07/08/2025 [id number] CARRIE THOMAS 2023 90 [facility] N RIVAROXABAN 20MG TAB TAKE ONE TABLET BY MOUTH ONCE A DAY TO THIN BLOOD. TAKE WITH FOOD. ORAL DISCONT INUED 06/22/2024 [id number] CARRIE THOMAS 2022 90 [facility] SEMAGLUTIDE 0.25MG/0.37 5ML INJ,SOLN,PE N,3ML INJECT 0.5MG UNDER THE SKIN EVERY WEEK SUBCUT ANEOUS DISCONT INUED (EDIT) 07/19/2025 [id number] FADI GARRETT NOD K 2023 3 [facility] SEMAGLUTIDE 0.25MG/0.37 5ML INJ,SOLN,PE N,3ML INJECT 0.5MG UNDER THE SKIN EVERY WEEK SUBCUT ANEOUS DISCONT INUED 03/10/2025 [id number] Tsering WALKER 2023 1 [facility] SEMAGLUTIDE 0.25MG/0.37 5ML INJ,SOLN,PE N,3ML INJECT 0.5MG UNDER THE SKIN EVERY WEEK FOR DIABETES SUBCUT ANEOUS 03/08/2024 [id number] 4 Tsering WALKER RIS J 2023 3 [facility] SEMAGLUTIDE 1MG/0.75ML INJ,SOLN,PE N,3ML INJECT 1MG UNDER THE SKIN EVERY WEEK FOR DIABETES SUBCUT ANEOUS ACTIVE 01/25/2026 [id number] TAMI, NOD K 2024 3 [facility] VITAMIN B COMPLEX CAP TAKE 1 CAPSULE BY MOUTH QAM ORAL ACTIVE Minda CALDWELL 2021 [facility] Immunizations Combined list of available immunizations from the Department of Defense and Veterans Affairs facilities. 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 ZOSTER RECOMBINANT 2 2020 187 complet ed [facility] ZOSTER RECOMBINANT 1 2019 187 complet ed [facility] INFLUENZA, UNSPECIFIED FORMULATION 2019 88 complet ed [facility] PNEUMOCOCCAL CONJUGATE PCV 13 2018 133 complet ed [facility] INFLUENZA, UNSPECIFIED FORMULATION 2018 88 complet ed [facility] PNEUMOCOCCAL POLYSACCHARID E PPV23 2018 33 complet ed [facility] TDAP 2014 115 complet [facility] N INFLUENZA, UNSPECIFIED FORMULATION 2009 88 complet ed [facility] Results Combined list of recent chemistry, hematology and other laboratory results from Department of Defense and Veterans Affairs, ranging from 15 months to all on record, depending upon the facility. Order Name Results Value Reference Range Date Interpretation Specimen Comments Source CBC LEUKOCYTES [#/VOLUME] IN BLOOD BY AUTOMATED COUNT 7.8 10*3/u L 3.6 - 11.2 01/23 Specimen Type: BLOOD No comment entered. Ordering Provider: MISHA GARRETT OD Report Released Date/Time: Jan 23, 2025 01:06 PM Reporting Lab: [place] [address] [address] [place] [address] Performing Lab: [address] [facility] CBC ERYTHROCYTE S [#/VOLUME] IN BLOOD BY AUTOMATED COUNT 4.49 10*6/u L 4.10 - 5.70 01/23 Specimen Type: BLOOD No comment entered. Ordering Provider: MISHA GARRETT OD Report Released Date/Time: Jan 23, 2025 01:06 PM Reporting Lab: [place] [address] Performing Lab: [place] [address] [facility] CBC HEMOGLOBIN [MASS/VOLUM E] IN BLOOD 14.4 g/dL 13.1 - 16.8 01/23 Specimen Type: BLOOD No comment entered. Ordering Provider: MISHA GARRETT OD Report Released Date/Time: Jan 23, 2025 01:06 PM Reporting Lab: [place] [address] [address] [place] [address] Performing Lab: [address] [facility] CBC HEMATOCRIT [VOLUME FRACTION] OF BLOOD 44.6 38.2 - 48.4 01/23 Specimen Type: BLOOD No comment entered. Ordering Provider: MISHA GARRETT OD Report Released Date/Time: Jan 23, 2025 01:06 PM Reporting Lab: [place] [address] Performing Lab: [place] [address] [facility] CBC MCV [ENTITIC VOLUME] BY AUTOMATED COUNT 99.3 fL 80.0 - 100.0 01/23 Specimen Type: BLOOD No comment entered. Ordering Provider: MISHA GARRETT OD Report Released Date/Time: Jan 23, 2025 01:06 PM Reporting Lab: [facility] [address] [place], [place] [phone] Performing Lab: [place] [phone] [facility] CBC MCH [ENTITIC MASS] BY AUTOMATED COUNT 32.1 pg 27.0 - 34.0 01/23 Specimen Type: BLOOD No comment entered. Ordering Provider: MISHA GARRETT OD Report Released Date/Time: Jan 23, 2025 01:06 PM Reporting Lab: [place] [address] Performing Lab: [place] [phone] [facility] CBC MCHC [MASS/VOLUM E] BY AUTOMATED COUNT 32.3 g/dL 33.0 - 36.0 01/23 L Specimen Type: BLOOD No comment entered. Ordering Provider: MISHA GARRETT OD Report Released Date/Time: Jan 23, 2025 01:06 PM Reporting Lab: [place] [address] Performing Lab: [address] [phone] [facility] CBC PLATELETS [#/VOLUME] IN BLOOD BY AUTOMATED COUNT 319 10*3/u L 150 - 400 01/23 Specimen Type: BLOOD No comment entered. Ordering Provider: MISHA GARRETT OD Report Released Date/Time: Jan 23, 2025 01:06 PM Reporting Lab: [facility] [address] [place] [address] Performing Lab: [address] [phone] [facility] CBC PLATELET MEAN VOLUME [ENTITIC VOLUME] IN BLOOD BY AUTOMATED COUNT 9.4 fL 7.5 - 11.2 01/23 Specimen Type: BLOOD No comment entered. Ordering Provider: MISHA GARRETT OD Report Released Date/Time: Jan 23, 2025 01:06 PM Reporting Lab: [facility] [address] [facility] [address] Performing Lab: [facility] [address] [facility] [phone] [facility] CBC ERYTHROCYTE DISTRIBUTIO N WIDTH [RATIO] BY AUTOMATED COUNT 13.0 11.8 - 15.1 01/23 Specimen Type: BLOOD No comment entered. Ordering Provider: MISHA GARRETT OD Report Released Date/Time: Jan 23, 2025 01:06 PM Reporting Lab: [facility] [address] [place] [phone] Performing Lab: [facility] [address] [phone] [facility] CBC LYMPHOCYTES /100 LEUKOCYTES IN BLOOD BY AUTOMATED COUNT 18 01/23 Specimen Type: BLOOD No comment entered. Ordering Provider: MISHA GARRETT OD Report Released Date/Time: Jan 23, 2025 01:06 PM Reporting Lab: [facility] [address] [place] [place] [phone] Performing Lab: [facility] [address] [facility] [phone] [place] [address] [facility] CBC MONOCYTES/1 00 LEUKOCYTES IN BLOOD BY AUTOMATED COUNT 8 01/23 Specimen Type: BLOOD No comment entered. Ordering Provider: MISHA GARRETT OD Report Released Date/Time: Jan 23, 2025 01:06 PM Reporting Lab: [facility] [address] [facility] [phone] Performing Lab: [facility] [address] [facility] CBC NEUTROPHILS /100 LEUKOCYTES IN BLOOD BY AUTOMATED COUNT 72 01/23 Specimen Type: BLOOD No comment entered. Ordering Provider: MISHA GARRETT OD Report Released Date/Time: Jan 23, 2025 01:06 PM Reporting Lab: [facility] [address] [facility] [address] Performing Lab: [place] [address] [facility] [address] [facility] CBC EOSINOPHILS /100 LEUKOCYTES IN BLOOD BY AUTOMATED COUNT 2 01/23 Specimen Type: BLOOD No comment entered. Ordering Provider: MISHA GARRETT OD Report Released Date/Time: Jan 23, 2025 01:06 PM Reporting Lab: [place] [address] [facility] [phone] Performing Lab: [place] [address] [facility] [phone] [facility] CBC BASOPHILS/1 00 LEUKOCYTES IN BLOOD BY AUTOMATED COUNT 0 01/23 Specimen Type: BLOOD No comment entered. Ordering Provider: MISHA GARRETT OD Report Released Date/Time: Jan 23, 2025 01:06 PM Reporting Lab: [place] [address] [facility] [address] Performing Lab: [place] [address] [facility] [address] [facility] CBC LYMPHOCYTES [#/VOLUME] IN BLOOD BY AUTOMATED COUNT 1.39 10*3/u L 0.77 - 4.50 01/23 Specimen Type: BLOOD No comment entered. Ordering Provider: MISHA GARRETT OD Report Released Date/Time: Jan 23, 2025 01:06 PM Reporting Lab: [place] [address] [facility] [address] Performing Lab: [place] [address] [facility] [address] [facility] CBC MONOCYTES [#/VOLUME] IN BLOOD BY AUTOMATED COUNT 0.61 10*3/u L 0.19 - 0.80 01/23 Specimen Type: BLOOD No comment entered. Ordering Provider: MISHA GARRETT OD Report Released Date/Time: Jan 23, 2025 01:06 PM Reporting Lab: [place] [address] [facility] [phone] Performing Lab: [address] [phone] [facility] CBC NEUTROPHILS [#/VOLUME] IN BLOOD BY AUTOMATED COUNT 5.62 10*3/u L 2.10 - 8.00 01/23 Specimen Type: BLOOD No comment entered. Ordering Provider: MISHA GARRETT OD Report Released Date/Time: Jan 23, 2025 01:06 PM Reporting Lab: [place] [address] Performing Lab: [place] [phone] [facility] CBC EOSINOPHILS [#/VOLUME] IN BLOOD BY AUTOMATED COUNT 0.13 10*3/u L 0.00 - 0.60 01/23 Specimen Type: BLOOD No comment entered. Ordering Provider: MISHA GARRETT OD Report Released Date/Time: Jan 23, 2025 01:06 PM Reporting Lab: [place] [address] Performing Lab: [place] [phone] [facility] CBC BASOPHILS [#/VOLUME] IN BLOOD BY AUTOMATED COUNT 0.03 10*3/u L 0.00 - 0.20 01/23 Specimen Type: BLOOD No comment entered. Ordering Provider: MISHA GARRETT OD Report Released Date/Time: Jan 23, 2025 01:06 PM Reporting Lab: [place] [address] Performing Lab: [place] [phone] [facility] COMPREHENS PAULA METABOLIC PANEL CREATININE [MASS/VOLUM E] IN SERUM OR PLASMA 1.40 mg/dL 0.7 - 1.3 01/23 H Specimen Type: PLASMA Comment: No hemolysis noted. Ordering Provider: MISHA GARRETT OD Report Released Date/Time: Jan 23, 2025 01:06 PM Reporting Lab: [place] [address] Performing Lab: [facility] [address] [facility] [address] [facility] COMPREHENS PAULA METABOLIC PANEL UREA NITROGEN [MASS/VOLUM E] IN SERUM OR PLASMA 31.0 mg/dL 9.0 - 25.0 01/23 H Specimen Type: PLASMA Comment: No hemolysis noted. Ordering Provider: MISHA GARRETT OD Report Released Date/Time: Jan 23, 2025 01:06 PM Reporting Lab: [place] [address] [facility] [address] Performing Lab: [place] [address] [facility] [address] [facility] COMPREHENS PAULA METABOLIC PANEL GLUCOSE [MASS/VOLUM E] IN SERUM OR PLASMA 182 mg/dL 72 - 99 01/23 H Specimen Type: PLASMA Comment: No hemolysis noted. Ordering Provider: MISHA GARRETT OD Report Released Date/Time: Jan 23, 2025 01:06 PM Reporting Lab: [address] [address] Performing Lab: [address] [address] [facility] COMPREHENS PAULA METABOLIC PANEL SODIUM [MOLES/VOLU ME] IN SERUM OR PLASMA 138 meq/L 136 - 145 01/23 Specimen Type: PLASMA Comment: No hemolysis noted. Ordering Provider: MISHA GARRETT OD Report Released Date/Time: Jan 23, 2025 01:06 PM Reporting Lab: [address] [phone] Performing Lab: [place] [address] [facility] [phone] [facility] COMPREHENS PAULA METABOLIC PANEL POTASSIUM [MOLES/VOLU ME] IN SERUM OR PLASMA 5.0 meq/L 3.5 - 5 01/23 Specimen Type: PLASMA Comment: No hemolysis noted. Ordering Provider: MISHA GARRETT OD Report Released Date/Time: Jan 23, 2025 01:06 PM Reporting Lab: [address] [place] [address] Performing Lab: [facility] [address] [place] [phone] [facility] COMPREHENS PAULA METABOLIC PANEL CHLORIDE [MOLES/VOLU ME] IN SERUM OR PLASMA 108 meq/L 98 - 107 01/23 H Specimen Type: PLASMA Comment: No hemolysis noted. Ordering Provider: MISHA GARRETT OD Report Released Date/Time: Jan 23, 2025 01:06 PM Reporting Lab: [place] [address] [place] [phone] Performing Lab: [place] [phone] [facility] COMPREHENS PAULA METABOLIC PANEL CARBON DIOXIDE, TOTAL [MOLES/VOLU ME] IN SERUM OR PLASMA 17 meq/L 22 - 31 01/23 L Specimen Type: PLASMA Comment: No hemolysis noted. Ordering Provider: MISHA GARRETT OD Report Released Date/Time: Jan 23, 2025 01:06 PM Reporting Lab: [place] [phone] Performing Lab: [address] [phone] [address] [facility] COMPREHENS PAULA METABOLIC PANEL CALCIUM [MASS/VOLUM E] IN SERUM OR PLASMA 9.2 mg/dL 8.4 - 10.4 01/23 Specimen Type: PLASMA Comment: No hemolysis noted. Ordering Provider: MISHA GARRETT OD Report Released Date/Time: Jan 23, 2025 01:06 PM Reporting Lab: [place] [address] [facility] [address] Performing Lab: [address] [phone] [address] [facility] COMPREHENS PAULA METABOLIC PANEL PROTEIN [MASS/VOLUM E] IN SERUM OR PLASMA 7.7 g/dL 6 - 8.6 01/23 Specimen Type: PLASMA Comment: No hemolysis noted. Ordering Provider: MISHA GARRETT OD Report Released Date/Time: Jan 23, 2025 01:06 PM Reporting Lab: [facility] [address] [place] [phone] Performing Lab: [facility] [place] [phone] [facility] COMPREHENS PAULA METABOLIC PANEL ALBUMIN [MASS/VOLUM E] IN SERUM OR PLASMA 4.1 g/dL 3.4 - 5 01/23 Specimen Type: PLASMA Comment: No hemolysis noted. Ordering Provider: MISHA GARRETT OD Report Released Date/Time: Jan 23, 2025 01:06 PM Reporting Lab: [place] [address] [place] [place] [address] Performing Lab: [place] [address] [place] [phone] [facility] COMPREHENS PAULA METABOLIC PANEL BILIRUBIN.T OTAL [MASS/VOLUM E] IN SERUM OR PLASMA 0.5 mg/dL 0.2 - 1.2 01/23 Specimen Type: PLASMA Comment: No hemolysis noted. Ordering Provider: MISHA GARRETT OD Report Released Date/Time: Jan 23, 2025 01:06 PM Reporting Lab: [place] [address] [place] [address] Performing Lab: [place] [address] [address] [place] [phone] [facility] COMPREHENS PAULA METABOLIC PANEL ALKALINE PHOSPHATASE [ENZYMATIC ACTIVITY/VO LUME] IN SERUM OR PLASMA 73 U/L 40 - 150 01/23 Specimen Type: PLASMA Comment: No hemolysis noted. Ordering Provider: MISHA GARRETT OD Report Released Date/Time: Jan 23, 2025 01:06 PM Reporting Lab: [facility] [place] [phone] Performing Lab: [place] [address] [facility] [address] [facility] COMPREHENS PAULA METABOLIC PANEL ASPARTATE AMINOTRANSF ERASE [ENZYMATIC ACTIVITY/VO LUME] IN SERUM OR PLASMA 18 U/L 5 - 34 01/23 Specimen Type: PLASMA Comment: No hemolysis noted. Ordering Provider: MISHA GARRETT OD Report Released Date/Time: Jan 23, 2025 01:06 PM Reporting Lab: [facility] [address] [place] [address] Performing Lab: [address] [facility] COMPREHENS PAULA METABOLIC PANEL ALANINE AMINOTRANSF ERASE [ENZYMATIC ACTIVITY/VO LUME] IN SERUM OR PLASMA 10 U/L 8 - 40 01/23 Specimen Type: PLASMA Comment: No hemolysis noted. Ordering Provider: MSIHA GARRETT OD Report Released Date/Time: Jan 23, 2025 01:06 PM Reporting Lab: [place] [address] Performing Lab: [address] [facility] COMPREHENS PAULA METABOLIC PANEL GLOMERULAR FILTRATION RATE/1.73 SQ M.PREDICTED [VOLUME RATE/AREA] IN SERUM, PLASMA OR BLOOD BY CREATININE- BASED FORMULA (CKD-EPI 2020) 51.1 60 01/23 Specimen Type: PLASMA Comment: No hemolysis noted. Ordering Provider: MISHA GARRETT OD Report Released Date/Time: Jan 23, 2025 01:06 PM Reporting Lab: [facility] [address] [place] [address] Performing Lab: [address] [facility] HGA1C HEMOGLOBIN A1C/HEMOGLO BIN.TOTAL IN BLOOD 8.1 4.0 - 6.0 01/23 H Specimen Type: BLOOD No comment entered. Ordering Provider: MISHA GARRETT OD Report Released Date/Time: Jan 23, 2025 01:06 PM Reporting Lab: [facility] [address] [place] [address] Performing Lab: [address] [facility] LIPID PANEL (STL) CHOLESTEROL [MASS/VOLUM E] IN SERUM OR PLASMA 184 mg/dL 0 - 200 01/23 Specimen Type: PLASMA Comment: No hemolysis noted. Ordering Provider: MISHA GARRETT OD Report Released Date/Time: Jan 23, 2025 01:06 PM Reporting Lab: [facility] [address] [place], [place] [phone] Performing Lab: [facility] [address] [place] [phone] [place] [address] [facility] LIPID PANEL (STL) TRIGLYCERID E [MASS/VOLUM E] IN SERUM OR PLASMA 140 mg/dL 0 - 150 01/23 Specimen Type: PLASMA Comment: No hemolysis noted. Ordering Provider: MISHA GARRETT OD Report Released Date/Time: Jan 23, 2025 01:06 PM Reporting Lab: [place] [address] Performing Lab: [address] [facility] LIPID PANEL (STL) CHOLESTEROL IN LDL [MASS/VOLUM E] IN SERUM OR PLASMA BY CALCULATION 97 mg/dL 01/23 Specimen Type: PLASMA Comment: No hemolysis noted. Ordering Provider: MISHA GARRETT OD Report Released Date/Time: Jan 23, 2025 01:06 PM Reporting Lab: [place] [phone] Performing Lab: [place] [phone] [facility] LIPID PANEL (STL) CHOLESTEROL IN HDL [MASS/VOLUM E] IN SERUM OR PLASMA 59 mg/dL 40 01/23 Specimen Type: PLASMA Comment: No hemolysis noted. Ordering Provider: MISHA GARRETT OD Report Released Date/Time: Jan 23, 2025 01:06 PM Reporting Lab: [place] [id number] Performing Lab: [address] [phone] [facility] MICRAL/CRE AT PROFILE (STL) ALBUMIN [MASS/VOLUM E] IN URINE 5.8 mg/L 01/23 Specimen Type: URINE No comment entered. Ordering Provider: MISHA GARRETT OD Report Released Date/Time: Jan 23, 2025 01:06 PM Reporting Lab: [facility] [address] [place], [place] [id number] Performing Lab: [facility] [address] [place] [phone] [facility] MICRAL/CRE AT PROFILE (STL) ALBUMIN/CRE ATININE [MASS RATIO] IN URINE 11 mg/g 0 - 29 01/23 Specimen Type: URINE No comment entered. Ordering Provider: MISHA GARRETT OD Report Released Date/Time: Jan 23, 2025 01:06 PM Reporting Lab: [place] [id number] Performing Lab: [phone] [place] [address] [facility] MICRAL/CRE AT PROFILE (STL) CREATININE [MASS/VOLUM E] IN URINE 51.0 mg/dL 63 - 166 01/23 L Specimen Type: URINE No comment entered. Ordering Provider: MISHA GARRETT OD Report Released Date/Time: Jan 23, 2025 01:06 PM Reporting Lab: [place] [address] Performing Lab: [place] [phone] [facility] TSH W/ REFLEX FT4 (STL) THYROTROPIN [UNITS/VOLU ME] IN SERUM OR PLASMA 1.164 u[IU]/ mL 0.47 - 5 01/23 Specimen Type: PLASMA No comment entered. Ordering Provider: MISHA GARRETT OD Report Released Date/Time: Jan 23, 2025 01:06 PM Reporting Lab: [place] [id number] Performing Lab: [address] [phone] [place] [address] [facility] VITAMIN D, 25-HYDROXY 25-HYDROXYV ITAMIN D3 [MASS/VOLUM E] IN SERUM OR PLASMA 36.3 ng/mL 30 - 96 01/23 Specimen Type: SERUM No comment entered. Ordering Provider: MISHA GARRETT OD Report Released Date/Time: Jan 23, 2025 01:06 PM Reporting Lab: [address] [address] Performing Lab: [phone] [facility] CBC LEUKOCYTES [#/VOLUME] IN BLOOD BY AUTOMATED COUNT 6.0 10*3/u L 3.6 - 11.2 10/27 Specimen Type: BLOOD No comment entered. Ordering Provider: ARYAN WALKER Report Released Date/Time: Oct 27, 2023 10:27 AM Reporting Lab: [place] [address] Performing Lab: [phone] [place] [address] CBC ERYTHROCYTE S [#/VOLUME] IN BLOOD BY AUTOMATED COUNT 4.17 10*6/u L 4.10 - 5.70 10/27 Specimen Type: BLOOD No comment entered. Ordering Provider: ARYAN WALKER Report Released Date/Time: Oct 27, 2023 10:27 AM Reporting Lab: [address] [address] Performing Lab: [phone] [place] [address] CBC HEMOGLOBIN [MASS/VOLUM E] IN BLOOD 13.0 g/dL 13.1 - 16.8 10/27 L Specimen Type: BLOOD No comment entered. Ordering Provider: ARYAN WALKER Report Released Date/Time: Oct 27, 2023 10:27 AM Reporting Lab: [address] [address] Performing Lab: [address] [address] [facility] CBC HEMATOCRIT [VOLUME FRACTION] OF BLOOD 41.5 38.2 - 48.4 10/27 Specimen Type: BLOOD No comment entered. Ordering Provider: ARYAN WALKER Report Released Date/Time: Oct 27, 2023 10:27 AM Reporting Lab: [address] [address] Performing Lab: [address] [address] [facility] CBC MCV [ENTITIC VOLUME] BY AUTOMATED COUNT 99.5 fL 80.0 - 100.0 10/27 Specimen Type: BLOOD No comment entered. Ordering Provider: ARYAN WALKER Report Released Date/Time: Oct 27, 2023 10:27 AM Reporting Lab: [address] [address] Performing Lab: [address] [address] [facility] CBC MCH [ENTITIC MASS] BY AUTOMATED COUNT 31.2 pg 27.0 - 34.0 10/27 Specimen Type: BLOOD No comment entered. Ordering Provider: ARYAN WALKER Report Released Date/Time: Oct 27, 2023 10:27 AM Reporting Lab: [address] [address] Performing Lab: [address] [address] [facility] CBC MCHC [MASS/VOLUM E] BY AUTOMATED COUNT 31.3 g/dL 33.0 - 36.0 10/27 L Specimen Type: BLOOD No comment entered. Ordering Provider: ARYAN WALKER Report Released Date/Time: Oct 27, 2023 10:27 AM Reporting Lab: [address] [address] Performing Lab: [address] [address] [facility] CBC PLATELETS [#/VOLUME] IN BLOOD BY AUTOMATED COUNT 371 10*3/u L 150 - 400 10/27 Specimen Type: BLOOD No comment entered. Ordering Provider: ARYAN WALKER Report Released Date/Time: Oct 27, 2023 10:27 AM Reporting Lab: [address] [address] Performing Lab: [address] [address] [facility] CBC PLATELET MEAN VOLUME [ENTITIC VOLUME] IN BLOOD BY AUTOMATED COUNT 9.3 fL 7.5 - 11.2 10/27 Specimen Type: BLOOD No comment entered. Ordering Provider: ARYAN WALKER Report Released Date/Time: Oct 27, 2023 10:27 AM Reporting Lab: [address] [address] Performing Lab: [address] [address] [facility] CBC ERYTHROCYTE DISTRIBUTIO N WIDTH [RATIO] BY AUTOMATED COUNT 12.7 11.8 - 15.1 10/27 Specimen Type: BLOOD No comment entered. Ordering Provider: ARYAN WALKER Report Released Date/Time: Oct 27, 2023 10:27 AM Reporting Lab: [address] [address] Performing Lab: [address] [address] [facility] CBC LYMPHOCYTES /100 LEUKOCYTES IN BLOOD BY AUTOMATED COUNT 25 10/27 Specimen Type: BLOOD No comment entered. Ordering Provider: ARYAN WALKER Report Released Date/Time: Oct 27, 2023 10:27 AM Reporting Lab: [address] [address] Performing Lab: [address] [address] [facility] CBC MONOCYTES/1 00 LEUKOCYTES IN BLOOD BY AUTOMATED COUNT 8 12/05 /2023 Specimen Type: BLOOD No comment entered. Ordering Provider: ARYAN WALKER Report Released Date/Time: Oct 27, 2023 10:27 AM Reporting Lab: [facility] [address] [facility] [address] Performing Lab: [facility] [address] [facility] [address] [facility] CBC NEUTROPHILS /100 LEUKOCYTES IN BLOOD BY AUTOMATED COUNT 60 10/27 Specimen Type: BLOOD No comment entered. Ordering Provider: ARYAN WALKER Report Released Date/Time: Oct 27, 2023 10:27 AM Reporting Lab: [facility] [address] [place] [address] Performing Lab: [facility] [address] [facility] [address] [facility] CBC EOSINOPHILS /100 LEUKOCYTES IN BLOOD BY AUTOMATED COUNT 6 10/27 Specimen Type: BLOOD No comment entered. Ordering Provider: ARYAN WALKER Report Released Date/Time: Oct 27, 2023 10:27 AM Reporting Lab: [facility] [address] [facility] [address] Performing Lab: [facility] [address] [place] [address] [facility] CBC BASOPHILS/1 00 LEUKOCYTES IN BLOOD BY AUTOMATED COUNT 1 10/27 Specimen Type: BLOOD No comment entered. Ordering Provider: ARYAN WALKER Report Released Date/Time: Oct 27, 2023 10:27 AM Reporting Lab: [facility] [address] [facility] [address] Performing Lab: [facility] [address] [place] [phone] [facility] CBC LYMPHOCYTES [#/VOLUME] IN BLOOD BY AUTOMATED COUNT 1.49 10*3/u L 0.77 - 4.50 10/27 Specimen Type: BLOOD No comment entered. Ordering Provider: ARYAN WALKER Report Released Date/Time: Oct 27, 2023 10:27 AM Reporting Lab: [address] [address] Performing Lab: [address] [address] [facility] CBC MONOCYTES [#/VOLUME] IN BLOOD BY AUTOMATED COUNT 0.50 10*3/u L 0.19 - 0.80 10/27 Specimen Type: BLOOD No comment entered. Ordering Provider: ARYAN WALKER Report Released Date/Time: Oct 27, 2023 10:27 AM Reporting Lab: [address] [address] Performing Lab: [address] [address] [facility] CBC NEUTROPHILS [#/VOLUME] IN BLOOD BY AUTOMATED COUNT 3.64 10*3/u L 2.10 - 8.00 10/27 Specimen Type: BLOOD No comment entered. Ordering Provider: ARYAN WALKER Report Released Date/Time: Oct 27, 2023 10:27 AM Reporting Lab: [address] [address] Performing Lab: [address] [address] [facility] CBC EOSINOPHILS [#/VOLUME] IN BLOOD BY AUTOMATED COUNT 0.34 10*3/u L 0.00 - 0.60 10/27 Specimen Type: BLOOD No comment entered. Ordering Provider: ARYAN WALKER Report Released Date/Time: Oct 27, 2023 10:27 AM Reporting Lab: [address] [address] Performing Lab: [address] [address] [facility] CBC BASOPHILS [#/VOLUME] IN BLOOD BY AUTOMATED COUNT 0.04 10*3/u L 0.00 - 0.20 10/27 Specimen Type: BLOOD No comment entered. Ordering Provider: ARYAN WALKER Report Released Date/Time: Oct 27, 2023 10:27 AM Reporting Lab: [facility] [address] [place] [address] Performing Lab: [facility] [address] [facility] [address] [facility] COMPREHENS PAULA METABOLIC PANEL CREATININE [MASS/VOLUM E] IN SERUM OR PLASMA 1.43 mg/dL 0.7 - 1.3 10/27 H Specimen Type: PLASMA Comment: No hemolysis noted. Ordering Provider: ARYAN WALKER Report Released Date/Time: Oct 27, 2023 10:27 AM Reporting Lab: [facility] [address] [place] [phone] Performing Lab: [address] [address] [facility] COMPREHENS PAULA METABOLIC PANEL UREA NITROGEN [MASS/VOLUM E] IN SERUM OR PLASMA 24.6 mg/dL 9.0 - 25.0 10/27 Specimen Type: PLASMA Comment: No hemolysis noted. Ordering Provider: ARYAN WALKER Report Released Date/Time: Oct 27, 2023 10:27 AM Reporting Lab: [facility] [address] [place] [phone] Performing Lab: [facility] [address] [facility] [address] [facility] COMPREHENS PAULA METABOLIC PANEL GLUCOSE [MASS/VOLUM E] IN SERUM OR PLASMA 105 mg/dL 72 - 99 10/27 H Specimen Type: PLASMA Comment: No hemolysis noted. Ordering Provider: ARYAN WALKER Report Released Date/Time: Oct 27, 2023 10:27 AM Reporting Lab: [facility] [address] [place] [phone] Performing Lab: [facility] [address] [place] [address] [facility] COMPREHENS PAULA METABOLIC PANEL SODIUM [MOLES/VOLU ME] IN SERUM OR PLASMA 139 meq/L 136 - 145 10/27 Specimen Type: PLASMA Comment: No hemolysis noted. Ordering Provider: ARYAN WALKER Report Released Date/Time: Oct 27, 2023 10:27 AM Reporting Lab: [facility] [address] [facility] [address] Performing Lab: [place] [address] [facility] [address] [facility] COMPREHENS PAULA METABOLIC PANEL POTASSIUM [MOLES/VOLU ME] IN SERUM OR PLASMA 5.4 meq/L 3.5 - 5 10/27 H Specimen Type: PLASMA Comment: No hemolysis noted. Ordering Provider: ARYAN WALKER Report Released Date/Time: Oct 27, 2023 10:27 AM Reporting Lab: [address] [address] Performing Lab: [place] [address] [facility] [address] [facility] COMPREHENS PAULA METABOLIC PANEL CHLORIDE [MOLES/VOLU ME] IN SERUM OR PLASMA 110 meq/L 98 - 107 10/27 H Specimen Type: PLASMA Comment: No hemolysis noted. Ordering Provider: ARYAN WALKER Report Released Date/Time: Oct 27, 2023 10:27 AM Reporting Lab: [place] [address] [facility] [address] Performing Lab: [place] [address] [facility] [address] [facility] COMPREHENS PAULA METABOLIC PANEL CARBON DIOXIDE, TOTAL [MOLES/VOLU ME] IN SERUM OR PLASMA 19 meq/L 22 - 31 10/27 L Specimen Type: PLASMA Comment: No hemolysis noted. Ordering Provider: ARYAN WALKER Report Released Date/Time: Oct 27, 2023 10:27 AM Reporting Lab: [place] [address] [facility] [address] Performing Lab: [place] [address] [address] [facility] [address] [facility] COMPREHENS PAULA METABOLIC PANEL CALCIUM [MASS/VOLUM E] IN SERUM OR PLASMA 9.4 mg/dL 8.4 - 10.4 10/27 Specimen Type: PLASMA Comment: No hemolysis noted. Ordering Provider: ARYAN WALKER Report Released Date/Time: Oct 27, 2023 10:27 AM Reporting Lab: [place] [address] [facility] [address] Performing Lab: [place] [address] [facility] [address] [facility] COMPREHENS PAULA METABOLIC PANEL PROTEIN [MASS/VOLUM E] IN SERUM OR PLASMA 7.9 g/dL 6 - 8.6 10/27 Specimen Type: PLASMA Comment: No hemolysis noted. Ordering Provider: ARYAN WALKER Report Released Date/Time: Oct 27, 2023 10:27 AM Reporting Lab: [place] [address] [facility] [address] Performing Lab: [place] [address] [facility] [address] [facility] COMPREHENS PAULA METABOLIC PANEL ALBUMIN [MASS/VOLUM E] IN SERUM OR PLASMA 4.5 g/dL 3.4 - 5 10/27 Specimen Type: PLASMA Comment: No hemolysis noted. Ordering Provider: ARYAN WALKER Report Released Date/Time: Oct 27, 2023 10:27 AM Reporting Lab: [place] [address] [facility] [address] Performing Lab: [place] [address] [facility] [address] [facility] COMPREHENS PAULA METABOLIC PANEL BILIRUBIN.T OTAL [MASS/VOLUM E] IN SERUM OR PLASMA 0.3 mg/dL 0.2 - 1.2 10/27 Specimen Type: PLASMA Comment: No hemolysis noted. Ordering Provider: ARYAN WALKER Report Released Date/Time: Oct 27, 2023 10:27 AM Reporting Lab: [facility] [address] [facility] [address] Performing Lab: [facility] [address] [facility] [address] [facility] COMPREHENS PAULA METABOLIC PANEL ALKALINE PHOSPHATASE [ENZYMATIC ACTIVITY/VO LUME] IN SERUM OR PLASMA 51 U/L 40 - 150 10/27 Specimen Type: PLASMA Comment: No hemolysis noted. Ordering Provider: ARYAN WALKER Report Released Date/Time: Oct 27, 2023 10:27 AM Reporting Lab: [place] [address] [facility] [address] Performing Lab: [place] [address] [facility] [address] [facility] COMPREHENS PAULA METABOLIC PANEL ASPARTATE AMINOTRANSF ERASE [ENZYMATIC ACTIVITY/VO LUME] IN SERUM OR PLASMA 15 U/L 5 - 34 10/27 Specimen Type: PLASMA Comment: No hemolysis noted. Ordering Provider: ARYAN WALKER Report Released Date/Time: Oct 27, 2023 10:27 AM Reporting Lab: [place] [address] [facility] [address] Performing Lab: [place] [address] [address] [facility] [address] [facility] COMPREHENS PAULA METABOLIC PANEL ALANINE AMINOTRANSF ERASE [ENZYMATIC ACTIVITY/VO LUME] IN SERUM OR PLASMA 8 U/L 8 - 40 10/27 Specimen Type: PLASMA Comment: No hemolysis noted. Ordering Provider: ARYAN WALKER Report Released Date/Time: Oct 27, 2023 10:27 AM Reporting Lab: [place] [address] [facility] [address] Performing Lab: [place] [address] [facility] [address] [facility] COMPREHENS PAULA METABOLIC PANEL GLOMERULAR FILTRATION RATE/1.73 SQ M.PREDICTED [VOLUME RATE/AREA] IN SERUM, PLASMA OR BLOOD BY CREATININE- BASED FORMULA (CKD-EPI 2020) 50.5 60 10/27 Specimen Type: PLASMA Comment: No hemolysis noted. Ordering Provider: ARYAN WALKER Report Released Date/Time: Oct 27, 2023 10:27 AM Reporting Lab: [facility] [address] [place] [address] Performing Lab: [facility] [address] [place] [address] [facility] LIPID PANEL (STL) CHOLESTEROL [MASS/VOLUM E] IN SERUM OR PLASMA 149 mg/dL 0 - 200 10/27 Specimen Type: PLASMA Comment: No hemolysis noted. Ordering Provider: ARYAN WALKER Report Released Date/Time: Oct 27, 2023 10:27 AM Reporting Lab: [facility] [address] [place] [phone] Performing Lab: [address] [address] [facility] LIPID PANEL (STL) TRIGLYCERID E [MASS/VOLUM E] IN SERUM OR PLASMA 215 mg/dL 0 - 150 10/27 H Specimen Type: PLASMA Comment: No hemolysis noted. Ordering Provider: ARYAN WALKER Report Released Date/Time: Oct 27, 2023 10:27 AM Reporting Lab: [address] [address] Performing Lab: [address] [address] [facility] LIPID PANEL (STL) CHOLESTEROL IN LDL [MASS/VOLUM E] IN SERUM OR PLASMA BY CALCULATION 69 mg/dL 10/27 Specimen Type: PLASMA Comment: No hemolysis noted. Ordering Provider: ARYAN WALKER Report Released Date/Time: Oct 27, 2023 10:27 AM Reporting Lab: [address] [address] Performing Lab: [address] [address] [facility] LIPID PANEL (STL) CHOLESTEROL IN HDL [MASS/VOLUM E] IN SERUM OR PLASMA 37 mg/dL 40 10/27 L Specimen Type: PLASMA Comment: No hemolysis noted. Ordering Provider: ARYAN WALKER Report Released Date/Time: Oct 27, 2023 10:27 AM Reporting Lab: [facility] [address] [facility] [address] Performing Lab: [facility] [address] [facility] [address] [facility] Vital Signs Combined list of inpatient and outpatient Vital Signs from Department of [facility] and [facility], ranging from 12 months to all on record, depending upon the facility. Vital Sign Value Date Comments Source SYSTOLIC BLOOD PRESSURE 137 01/23/2025 13:33:55 . [facility] DIASTOLIC BLOOD PRESSURE 74 01/23/2025 13:33[facility]55 [facility] P[facility]XIMET[facility] 95 01/23/2025 13:33:55 [facility] WEIGHT 216 01/23/2025 13:33:55 [facility] BMI 33 kg/m2 01/23/2025 13:33:55 [facility] PAIN 0 01/23/2025 13:33:55 [facility] HEIGHT 68 01/23/2025 13:33:55 [facility] TEMPERATURE 97.6 01/23/2025 13:33:[address] [facility] P[facility]SE 68 01/23/[facility]25 13:33:55 [facility] RESPIRATION 18 01/23/2025 13:33:55 [facility] Encounters Combined list of: 1) Encounters from [facility] facilities going backup to the last 18 months, not all [place] inpatient encounters are included; 2) Encounters from the Department of [facility] facilities going backup to 280 months. Location Location Details Encounter Type Encounter Number Reason For Visit Attending Provider ADM Date DC Date Status Disposition Source [facility] Outpatient Encounter [id number] 08/23 [facility] Outpatient Encounter [id number] Tsering BOUCHER MY N 10/23 [facility] Outpatient Encounter [id number] 10/26 [facility] OFFICE O/P EST MOD 30-39 MIN [id number] Diagnos is: ICD-10- CM I10 Essenti al (primar y) hyperte nsion ARYAN WALKER IS J 10/27 [facility] OFFICE O/P EST MOD 30-39 MIN [id number] Diagnos is: ICD-10- CM Z00.01 Encount er for general adult medical exam w abnorma l finding s ARYAN WALKER IS J 10/27 [facility] SUP/ACCESS /DEV [id number] Diagnos is: ICD-10- CM H90.3 Sensori neural hearing loss, bilater al FARHAN GUTIERREZ 10/30 [facility] Outpatient Encounter [id number] 11/04 [facility] Outpatient Encounter [id number] 11/10 [facility] PSYTX W PT 30 MINUTES [id number] Diagnos is: ICD-10- CM F43.23 Adjustm ent disorde r with mixed anxiety and depress ed mood Ephraim MOHAN 11/30 [facility] Outpatient Encounter [id number] 12/10 [facility] Outpatient Encounter [id number] SENA ROOT A 12/13 [facility] Outpatient Encounter [id number] 12/23 [facility] PSYTX W PT 30 MINUTES [id number] Diagnos is: ICD-10- CM F43.23 Adjustm ent disorde r with mixed anxiety and depress ed mood Ephraim MOHAN ARVA 01/18 [facility] Outpatient Encounter [id number] 01/26 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 MOHANEphraim ARVA 02/14 [facility] PSYTX W PT 30 MINUTES [id number] Diagnos is: ICD-10- CM 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 Ephraim MOHAN ARVA 03/07 [facility] PSYTX W PT 30 MINUTES [id number] Diagnos is: ICD-10- CM 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 Ephraim MOHAN ARVA 04/11 [facility] PSYTX W PT 30 MINUTES [id number] Diagnos is: ICD-10- CM F06.4 Anxiety disorde r due to known physiol ogical conditi on Ephraim MOHAN 06/20 [facility] Outpatient Encounter [id number] 06/27 [facility] MTMS BY PHARM EST 15 MIN [id number] Diagnos is: ICD-10- CM Z51.81 Encount er for therape utic drug level monitor RENATA Torres 07/07 [facility] Outpatient Encounter [id number] 07/08 [facility] Outpatient Encounter [id number] 07/18 [facility] PSYTX W PT 30 MINUTES [id number] Diagnos is: ICD-10- CM 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 Ephraim MOHAN 08/15 [facility] Outpatient Encounter [id number] 09/19 [facility] PSYTX W PT 30 MINUTES [id number] Diagnos is: ICD-10- CM 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 Ephraim MOHAN 10/10 [facility] Outpatient Encounter [id number] 11/08 [facility] Outpatient Encounter [id number] 11/14 [facility] NQHP OL DIG ASSMT&MGMT 5-10 [id number] Diagnos is: ICD-10- CM Z51.81 Encount er for therape utic drug level monitor lenin SWIFTTsering NNA P 11/28 [facility] NQ OL DIG ASSMT&MGMT 5-10 [id number] Diagnos is: ICD-10- CM Z51.81 Encount er for therape utic drug level monitor lenin GEOFF WYATT 11/29 [facility] PSYTX W PT 30 MINUTES [id number] Diagnos is: ICD-10- CM 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 Ephraim MOHAN ARVTsering 12/05 [facility] Outpatient Encounter [id number] SHANT LOPEZ L 12/23 [facility] Outpatient Encounter [id number] JAZMYN TRAORE GGY 12/26 [facility] OL DIG ASSMT&MGMT 5-10 [id number] [id number] Diagnos is: ICD-10- CM Z51.81 Encount er for therape utic drug level monitor lenin ALONSO DAWSON 12/30 [facility] Outpatient Encounter [id number] [phone] [id number] 01/04 [facility] FEE [id number] [id number] Diagnos is: ICD-10- CM I10 Essenti al (primar y) hyperte nsion TAMI,MISHA OD K 01/23 [facility] A[facility]IO-VIDE O EST MOD 30 [id number] Diagnos is: ICD-10- CM I10 Essenti al (primar y) hyperte nsion TAMI,MISHA OD K 01/23 [facility] PSYTX W PT 30 MINUTES [id number] Diagnos is: ICD-10- CM 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 Ephraim MOHAN ARVTsering 01/23 [facility] MTMS BY PHARM EST 15 MIN [id number] Diagnos is: ICD-10- CM Z51.81 Encount er for therape utic drug level monitor RENATA Torres 01/25 [facility] Outpatient Encounter [id number] 01/30 [facility] Social History Combined list of available smoking, tobacco, and other social history from [facility] Defense and [facility] facilities. Social History Type Response Date Comment Sourc e Tobacco smoking status NHIS VA-TOBACCO NEVER USED CIGARETTES 01/23/2025 [facility] History of tobacco use VA-TOBACCO NEVER USED OTHER TYPE 01/23/2025 [facility] History of tobacco use VA-TOBACCO NEVER USED 10/23/2023 [facility] History of tobacco use VA-TOBACCO NEVER USED 10/28/2022 [facility] History of tobacco use VA-TOBACCO NEVER USED 10/29/2021 [facility] History of tobacco use VA-TOBACCO FORMER USER 10/23/2020 [facility] History of tobacco use VA-TOBACCO QUIT 15 YRS OR MORE 10/10/2019 [facility] Plan of Care List of future care activities from Department of [facility] Affairs facilities. Additional future care activities may be listed in the Assessment and Plan section. Date/Time Care Activity Care Activity Detail Facili ty 03/20/2025 AMBULATORY - MEDICINE AMBULATORY - MEDICI [facility] Advance Directives List of completed, amended, or rescinded Advance Directives on record at [facility] of [facility] Affairs facilities. An actual copy of the Directive is not included. Date Advance Directive Provider Source 10/28/2019 ADVANCE DIRECTIVE DISCUSSION Onur SHERMAN [facility]
--- OUTSIDE RECORDS SUMMARY | 2025-02-28 11:13 | XMS_ITS | CONTINUITY OF CARE DOCUMENT ---
Author Name jadiel duvall Address Unknown Organization [facility] Address [address] [place] [address] Phone [phone] Care Team Providers Care Gas Specialist Name Role Phone Xander Hall MD Unavailable [phone] MUKESH CHAPA MD Unavailable MUKESH CHAPA MD [...] RN Leg weakness, bilateral active Kadi Calloway DATABASE DBA ENCOUNTERS Date Type Provider Location Encounter Diag [...] Log blood pressure, systolic 126 mm[Hg] Brunilda [facility] blood pressure, diastolic 64 mm[Hg] Chucky cobb [place] blood pressure, systolic 126 mm[Hg] Darling marino [place] oxygen saturation, oximetry 94 % [facility] 72 /min [facility] respiratory rate E&M 12 /min Mansi mike weight E&M 212 [lb_av] Chuckyremy [place] blood pressure, cuff size regular Chucky cobb [place] height E&M 68 [in_i] [facility] blood [facility], diastolic 66 mm[Hg] Margaux nkLog blood pressure, systolic 127 mm[Hg] Brunilda [facility] Body Mass Index (Ratio) 34.51 kg/m2 gabriela Hall MD blood pressure, diastolic 66 mm[Hg] Avani Murguia blood pressure, systolic 127 mm[Hg] Joel shanks [facility] oxygen saturation, oximetry 94 % Yasemin Murguia pulse rate 86 /min Yasemin Benitalorelei derian respiratory rate E&M 14 /min Ingris amaya [place] blood pressure, cuff size large Avani avina [place] weight E&M 227 [lb_av] Yasemin Katerine menard [...] lder height E&M 68 [in_i] Sabrina Lorenzo [facility] Body Mass Index (Ratio) 37.10 kg/m2 Sund [...] Irene blood pressure, systolic 140 mm[Hg] Try bianka Irene weight E&M 244 [lb_av] Yumi Irene [...] yesenia O'Silviano blood pressure, systolic 138 mm[Hg] [facility] OSilviano oxygen saturation, oximetry 97 % Verna [...] Matthew Zaldivar respiratory rate E&M 17 /min Sihela Zaldivar weight E&M 240.6 [lb_av] Shiela height E&M 68 [in_i] [facility] Body Mass Index (Ratio) 37.40 kg/m2 [...] Take 1 tablet by mouth once daily [facility] RADHA Specialist Jardiance 25 mg tablet active Take 1 tablet by mouth once a day Sabrina Guerra Lexapro 10 mg tablet active Sabrina Guerra propafenone 150 mg tablet active TAKE 1 TABLET BY MOUTH THREE TIMES DAILY Abby Sanchez carvedilol 6.25 mg tablet active Take 1 tablet by mouth twice daily [facility] Melo GARCIA Specialist lovastatin 40 mg tablet [...] Value Provider alcohol use no Kadi Calloway DATABASE DBA smoking status Never smoker Kadi Calloway DATABASE DBA smoking status Never smoker Yasemin Warner alcohol [...] Payer name Policy type / Coverage type [employer] party ID [employer] [id number] [place] MEDICARE PART B Medicare [id number] ADVANCE DIRECTIVES Name Date DISCUSSED - NO DECISION MADE TREATMENT PLAN Date Name Performer [id number],C,h gbA1C - 9.1% and his jardiance was increased to 25mg Maribel Burks DATABASE DBA [id number],C, o n statin h is last lipid was 12/2020 - chol 154, Trigs 206, HDL 43, LDL 81 wants lab results sent to Dr Osman at [facility] with fx #[phone] Maribel Burks DATABASE DBA [id number],C, B P today: 139/68 P rior BP: 140/80 (10/30/2021) Labs Reviewed: C reat: 1.33 (12/25/2020) C hol: 154 (12/25/2020) HDL: 43 (12/25/2020) LDL: 81 MG/DL (CALC) (12/25/2020) T (12/25/2020) Maribel Burks DATABASE DBA [id number],C r emaiins in NSR rate in the [address] Maribel Burks NASIR [id number],C,Uses his CPAP nightly Maribel Burks DATABASE DBA [id number],C, H is last echo last year 11/12 - EF 60% Maribel Burks NASIR [id number],C, H is updated medication list for this [...] (CALC) (12/25/2020) T (12/25/2020) Xander Hall MD [id number],C,i n sr d enies palpiations is kaylee and will cut back carvdilol to 6.25mg bid Xander Hall MD [id number],S, Xander Hall MD [id number],C,has normalozi ed Xander Hall MD Cardiology: E [...] Take 1 tablet by mouth once daily Kadi Calloway NP Cardiology: B P today: 126/64 [...] by mouth once a day Kadi Elli DATABASE DBA Cardiology: P t thinks this is due to deconditioning, but this hinders him as he goes up stairs. Working out more, but his arthritis in his knee also hinders him. Will check DINORA. Kadi Calloway DATABASE DBA Cardiology:6.5% His updated medication list for this [...] jardiance was increased to 25mg Maribel Burks DATABASE DBA Cardiology: o n statin h is last lipid was 12/2020 - chol 154, Trigs 206, HDL 43, LDL 81 wants lab results sent to Dr Osman at [facility] with fx #[phone] Maribel Burks DATABASE DBA Cardiology: B P today: 139/68 P rior BP: 140/80 (10/30/2021) Labs Reviewed: C reat: 1.33 (12/25/2020) C hol: 154 (12/25/2020) HDL: 43 (12/25/2020) LDL: 81 MG/DL (CALC) (12/25/2020) T (12/25/2020) Maribel Burks DATABASE DBA Cardiology: r emaiins in NSR rate in the 70s [address] block Maribel Burks DATABASE DBA Cardiology:Uses his CPAP nightly Maribel Burks DATABASE DBA Cardiology: H is last echo last year 11/12 - EF 60% Maribel Burks DATABASE DBA Cardiology: H is updated medication list for [...] lab results sent to Dr Osman at [facility] with fx #[phone] Sydnee Mooney RN Cardiology:states last hgb a1c 7 .2 Sydnee Mooney RN Cardiology:occasiona l left foot edema, occurs after sitting long periods of time, resolves by morning h as trouble geting compression sock on d oes not bother him and he feels this happens because 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 He is able to do his work around the house as well. Denies CP, SOB, palpitations with activity. 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 Denies CP, SOB, palpitations. ekg today shows sr with qrsd 148 ms (up from 136) Sydnee Mooney RN Cardiology:Ef 45% on echo Sydnee Mooney RN Cardiology: H is updated medication list for this problem includes: Lovastatin 40 Mg Oral Tablet (Lovastatin) ..... One tab. daily Sydnee Mooney RN Cardiology:follows wt Louisaremy Hernandez DATABASE DBA Sydnee Mooney RN Cardiology:BP today: 118/60 P [...] 120/58 P rior BP: 150/70 (08/31/2019) Sydnee Mooney RN Cardiology: He had t ee guided [...]
== END 2025-02-28 10:44 | disposition home or self-care (01) ==
PROVIDERS: Emergency Provider Nurse Practitioner
DX: S61.012A Laceration without foreign body of left thumb without damage to nail, initial encounter (principal); W55.01XA Bitten by cat, initial encounter; I48.91 Unspecified atrial fibrillation; E11.42 Type 2 diabetes mellitus with diabetic polyneuropathy; Z79.84 Long term (current) use of oral hypoglycemic drugs; Z79.85 Long-term (current) use of injectable non-insulin antidiabetic drugs; I10 Essential (primary) hypertension; E78.00 Pure hypercholesterolemia, unspecified; Z85.828 Personal history of other malignant neoplasm of skin; Z79.01 Long term (current) use of anticoagulants
CPT/HCPCS: 99213; G0463

== ENCOUNTER 2025-07-26 17:14 | Emergency (ER) | payer MEDICARE, OTHER, SELFPAY ==
--- OUTSIDE RECORDS SUMMARY | 2024-10-10 06:30 | XMS_ITS | Encounter Summary ---
Author Name [facility] [place] [facility] [place] Address [address] [place] [address] Care Team Providers Care Jailer Name Role Phone SULMA GARRETT Primary Care Provider Unavailabl e Insurance Providers: All historical and current Section Date Range: From patient's date of to the date document was created. This section includes the names of all active insurance providers for the patient. Insurance Provider Type of Coverage Plan Name Start of Policy Coverage End of Policy Coverage Group Number Member ID Insurance Provider's Telephone Number Policy Garcia's Name Patient's Relationship to Policy Garcia SOPHIA BERNAL MEDICARE SUPPLEMEN JOSUE MEDIC ARE SUPPL EMENT Nov 23, 2010 [id number] [phone] PEGGY GUERRA PATIENT MEDICARE (WNR) MEDICARE (M) PART A Oct 23, 2010 PART A [id number] [phone] PEGGY GUERRA PATIENT MEDICARE (WNR) MEDICARE (M) PART B Oct 23, 2010 PART B [id number] [phone] PEGGY GUERRA PATIENT MEDICARE (WNR) MEDICARE (M) PART A Oct 23, 2010 PART A [id number] [phone] PEGGY GUERRA PATIENT MEDICARE (WNR) MEDICARE (M) PART B Oct 23, 2010 PART B [id number] [phone] PEGGY GUERRA PATIENT Selected Encounter This section includes the information on [place] at [place] for the Encounter. 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 Plan of Treatment: Future Appointments (+ 6 months) and Future Tests (+/- 45 days) The Plan of Treatment section includes future care activities for the patient from all [place] treatmentfacilities. This section includes future appointments and future orders which are active, pending or scheduled. Future Appointments This section includes appointments that were scheduled to occur 6 months from the date of the Encounter, up to a maximum of 20 appointments. The data comes from all [place] treatment facilities. Appointment Date/Time Appointment Type Appointme nt Facility Name Dec 05, 2024 11:00 AM AMBULATORY - MEDICINE [facility] Jan 23, 2025 01:30 PM AMBULATORY - NONE [facility] Jan 23, 2025 01:31 PM AMBULATORY - NONE [facility] Jan 23, 2025 02:00 PM AMBULATORY - MEDICINE [facility] Social History: Smoking Status (Most current) and Tobacco Use (All prior to encounter date) This section includes the most current, and the historical, smoking and tobacco- related health factors from the [place] facility where the Encounter took place. Current Smoking Status This section includes the most current smoking, or tobacco-related health factor, from the [place] facility where the Encounter took place. Date/Time Current Smoking Status Comment Brandt zepeda Oct 28, 2022 10:00 AM VA-TOBACCO NEVER USED [facility] Tobacco Use History This section includes a history of the smoking, or tobacco-related health factors, that were collected on or before the date of the Encounter. The data comes from the [place] facility where the Encounter took place. Date/Time Smoking Status/Tobacco Use Comment F acility Oct 29, 2021 10:00 AM VA-TOBACCO NEVER USED [facility] Oct 23, 2020 10:00 AM VA-TOBACCO FORMER USER [facility] Oct 23, 2020 10:00 AM VA-TOBACCO QUIT 15 YRS OR MORE [facility] Oct 10, 2019 03:41 PM VA-TOBACCO FORMER USER [facility] Oct 10, 2019 03:41 PM VA-TOBACCO QUIT [address] [facility] Advance Directives: All historical and current Section Date Range: From patient's date of to the date document was created. This section includes ALL of a patient's completed or amended [place] Advance and Rescinded Directives. The entries below indicate that a directive exists for the patient, but an actual copy is not included with this document. The data comes from all [place] facilities. Date Advance Directives Provider Source Oct 28, 2019 ADVANCE DIRECTIVE DISCUSSION Onur SHERMAN [facility] Encounter Notes: All associated encounter notes This section contains the clinical notes associated to the Encounter. Date/Time Encounter Note(s) Provider Source Oct 10, 2024 11:44 AM PSYCHOLOGY OUTPATI ENT NOTE: LOCAL TITLE: PRIMARY CARE PSYCHOLOGY NOTE ST STANDARD TITLE: PSYCHOLOGY OUTPATIENT NOTE DATE OF NOTE: OCT 10, 2024@11:44 ENTRY DATE: OCT 10, 2024@11:44:34 AUTHOR: INDIA MOHAN COSIGNER: URGENCY: STATUS: COMPLETED Follow-up Template NAME: NAVEEN GUERRA DATE OF : Oct TIME SPENT WITH PATIENT: 30 minutes DIAGNOSIS BEING TREATED: MDD, D/T Hearing Loss Adjustment Disorder w/Anxiety and depression CPT Code: 98913 NATURE OF ENCOUNTER: follow up visit SESSION FORMAT: [X] Ezvb-dh-Obig [ ] Video Telehealth [ ]Phone Confirmed 's location and phone number for virtual appointment. [ ]Yes [ ]N/A NOTE: Use separate CVT template, if appropriate SESSION NUMBER: 12 INTERVENTION/TREATMENT PROVIDED [X] Rapport Building [X] Shared decision-making regarding goals of care [X] Supportive Psychotherapy [ ] Solution-Focused Psychotherapy [ ] Insight Oriented Psychotherapy [X] Cognitive Behavioral Therapy Skills [ ] Acceptance and Commitment Therapy Skills [ ] Interpersonal Therapy Skills [ ] Motivational Interviewing [ ] Culture-based Interventions [ ] Health Psychology Interventions [ ] Evidence Based Psychotherapy: [ ] Psychosocial Interventions [ ] Other: Description of Interventions Provided by Therapist: - Utilized reflection and emotional validation to work to build rapport. - Engaged in interviewing to better understand current presenting concerns. - ME strategies to promote healthy lifestyle choices - Provided psychoeducation about CBT and the connection of thoughts and behaviors. RELEVANT HISTORICAL DEVELOPMENTS SINCE LAST CONTACT: NOTE: Describe relevant historical developments below Alanna reported his is doing much better. She is in PT and falling less. His granddaughter recently and he enjoyed attending the [employer] Discussed how he feeds 16 stray cats outdoors, and his plans to help to prepare them for the winter. His will allow him to keep 2 of them. Processed work, and his family/work balance. Celeste continues to do well overall. 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 ASSESSMENT MEASURES USED: [ ] Measure in Mental Health Clinical Education Consultant. See accompanying Mental Health Diagnostic Study for details. [ ] Measure(s) sent via [facility], electronically following visit. agrees to asynchronous electronic administration; when returned, measure results will be included in a note or addendum in CPRS [ ] Other Measures: Measure: Score: Measure: Score: [ ] N/A: Not administered this session Date/Score of last administration: [X]Functional/Symptom Assessment: Symptom(s)/Function(s) tracked by mood on scale of 1-10 Changes in frequency, intensity or duration since last visit: 5- slight regression, described as a overwhelmed. Collaboratively discussed outcomes related to assessment and treatment progress and measures will continue to be monitored. MEASURABLE TREATMENT GOALS FOR THIS EPISODE OF CARE: 1. GOAL/OBJECTIVES: improve overall mood which is impacted by hearing loss PROGRESS TOWARDS GOAL: celeste verbalized having a safe space to vent and process does wonders for his depression. 2. GOAL/OBJECTIVES: PROGRESS TOWARDS GOAL: 3. GOAL/OBJECTIVES: PROGRESS TOWARDS GOAL: RESPONSE TO INTERVENTIONS: Veterans participation/engagement: [X][facility] participated actively in the current interventions. [ ]Other: [facility] continues to consent to the current plan of care: Yes Comments: RISK ASSESSMENT: [X] NO CHANGE IN RISK FACTORS Related to Suicide or Homicide. did not report any current suicidal/homicidal ideation, plan, or intent. [facility] did not appear to be at imminent risk for suicide or homicide at this time and is considered sustainable at the current level of care. [ ] NEW/UPDATED RISK ASSESSMENT: -RELEVANT RISK AND PROTECTIVE FACTORS: -IDEATION: [ ] [facility] denied current suicidal or homicidal ideation, plan, or intent. [ ] Suicidal or homicidal ideation/behavior WAS identified: vet endorsed fleeting ideations in the context of his -CLINICAL JUDGMENT AND DISPOSITION: [ ] In consideration of relevant risk and protective factors, [facility] did NOT appear to be at imminent risk for suicide or homicide at this time and IS sustainable at the current level of care. -Comments: [ ] [facility] IS considered to be at INCREASED RISK for suicide or homicide based upon: -Actions/interventions taken to address risk and prevent harm include: -Emergency protocols initiated were: -Comments: ASSIGNED WORK: RTC entered for ongoing support. COLLABORATIVE RECOMMENDATIONS/PLAN: Collaboratively discussed outcomes related to assessment and treatment progress. Based on this discussion: Vet agreed to ongoing services. /roberto/ [place] Mohan Psy.D. Staff Psychologist Signed: 10/10/2024 12:36 INDIA MOHAN [facility]
--- OUTSIDE RECORDS SUMMARY | 2024-11-28 05:10 | XMS_ITS | Encounter Summary ---
Author Name [facility] [place] [facility] [place] [facility] [place] Address [address] [place] [address] Care Team Providers Care Cop Breaker Name Role Phone SULMA GARRETT Primary Care [...] Name Patient's Relationship to Policy Garcia SOPHIA ROOT MD MEDICARE SUPPLEMEN JOSUE MEDIC ARE SUPPL EMENT Nov 23, 2010 [id number] [phone] PEGGY GUERRA PATIENT MEDICARE (WNR) MEDICARE (M) PART A Oct 23, 2010 PART A [id number] PEGGY GUERRA PATIENT MEDICARE (WNR) MEDICARE (M) PART B Oct 23, 2010 PART B [id number] PEGGY GUERRA PATIENT MEDICARE (WNR) MEDICARE (M) PART A Oct 23, 2010 PART A [id number] PEGGY GUERRA PATIENT MEDICARE (WNR) MEDICARE (M) PART B Oct 23, 2010 PART B [id number] PEGGY GUERRA PATIENT Selected Encounter This section includes the information on record at [place] for the Encounter. Date/Time Encounter Type Encounter Description Reason Provider Source Nov 28, 2024 10:10 AM HP OL DIG ASSMT&MGMT 5-10 CLINICAL PHARMACY ICD-10-CM Z51.81 Encounter for therapeutic drug level monitoring JOSHUA SWIFT IHE Encounter Template Text not used by [place] Assessments - Encounter Diagnoses This section includes the primary and secondary diagnoses documented for the Encounter. Date/Time Primary/Secondary Diagnosis Diagnosis Name Provider Source Nov 28, 2024 10:16 AM PRIMARY Encounter for therapeutic drug level monitoring JOSHUA SWIFT [facility] Nov 28, 2024 10:16 AM SECONDARY Chronic atrial fibrillation, unspecified JOSHUA SWIFT [facility] Nov 28, 2024 10:16 AM SECONDARY retirement (current) use of anticoagulants JOSHUA SWIFT [facility] Plan of Treatment: Future Appointments (+ 6 months) and Future Tests (+/- 45 days) The Plan of Treatment section includes future care activities for the [facility] [place] [facility] This section includes future appointments and future orders which are active, pending or scheduled. Future Appointments This section includes appointments that were scheduled to occur 6 months from the date of the Encounter, up to a maximum of 20 appointments. The data comes from all [facility]. Appointment Date/Time Appointment Type Appointme nt Facility Name Dec 05, 2024 11:00 AM AMBULATORY - MEDICINE [facility] Jan 23, 2025 01:30 PM AMBULATORY - NONE [facility] Jan 23, 2025 01:31 PM AMBULATORY - NONE [facility] Jan 23, 2025 02:00 PM AMBULATORY - MEDICINE [facility] May 01, 2025 11:00 AM AMBULATORY - MEDICINE [facility] Active, Pending, and Scheduled Orders This section includes a listing of several types of active, pending, and scheduled orders, including clinic medications orders, diagnostic test orders, procedure orders and consult orders; where the start date of the order is 45 days before the date of the Encounter or 45 days after the date of theEncounter. The data comes from all [facility]. Test Date/Time Test Type Test Details Facility Name Jan 11, 2025 12:00 AM Laboratory - Chemi stry Order HGB,HCT,PLT BLOOD [facility] Jan 11, 2025 12:00 AM Laboratory - Chemi stry Order CREATININE(EGFR) GREEN LI/HEP BLD/PLAS PLASMA [facility] Jan 11, 2025 12:00 AM Laboratory - Chemi stry Order AST/SGOT GREEN LI/HEP BLD/PLAS PLASMA [facility] Jan 11, 2025 12:00 AM Laboratory - Chemi stry Order ALT/SGPT GREEN LI/HEP BLD/PLAS PLASMA [facility] Social History: Smoking Status (Most current) and Tobacco Use (All prior to encounter date) This section includes the most current, and the historical, smoking and tobacco- related health factors from the [place] facility where the Encounter took place. Current Smoking Status This section includes the most current smoking, or tobacco-related health factor, from the [place] facility where the Encounter took place. Date/Time Current Smoking Status Comment Facil ity Oct 23, 2023 01:41 PM [facility]-TOBACCO [facility] Advance Directives: All historical and current Section Date Range: From patient's date of to the date document was created. This section includes ALL of a patient's completed or amended [place] Advance and Rescinded Directives. The entries below indicate that a directive exists for the patient, but an actual copy is not included with this document. The data comes from all [place] facilities. Date Advance Directives Provider Source Oct 28, 2019 ADVANCE DIRECTIVE DISCUSSION Onur SHERMAN [facility] Encounter Notes: All associated encounter notes This section contains the clinical notes associated to the Encounter. Date/Time Encounter Note(s) Provider Source Nov 28, 2024 10:10 AM PHARMACY NOTE: LOCAL TITLE: ANTICOAGULATION MONITORING ST STANDARD TITLE: PHARMACY NOTE DATE OF NOTE: NOV 28, 2024@10:10 ENTRY DATE: NOV 28, 2024@10:10:54 AUTHOR: JOSHUA SWIFT COSIGNER: URGENCY: STATUS: COMPLETED SUBJECTIVE: Drug: Rivaroxaban Patient identified as needing review for the following: Monitoring overdue: Lab(s) overdue: Hgb/Hct/Plt, AST/ALT, SCr OBJECTIVE: Active VA and non-VA medication lists, pertinent laboratory tests (i.e., H/H, Plts, SCr, LFTs, etc), recent progress notes, and other pertinent objective data were reviewed. Pertinent Labs: HGB 13.0 L g/dL 10/27/2023 10:45 HCT 41.5 % 10/27/2023 10:45 PLT 371 10*3/uL 10/27/2023 10:45 AST/SGOT 15 U/L 10/27/2023 10:45 ALT/SGPT 8 U/L 10/27/2023 10:45 CREATININE 1.43 H mg/dL 10/27/2023 10:45 Creatinine (serum) done on the outside VALUE: 1.6 Date: November 08, 2024 Location: [facility] Measurement DT WEIGHT LB(KG)[BMI] 10/27/2023 09:53 205.1(93.03)[31*] ASSESSMENT/PLAN: This patient has been identified by VISN 15 DOAC dashboard review of active DOAC prescriptions. Patient flagged for: overdue lab monitoring. VA labs ordered by Anticoagulation Provider. Will mail letter to patient asking him/her to come in for labs. Reassess in: 1 month Patient mailed the DOAC - lab request [email or web address] COVID letter. NonVA lab results above. Updated Scr above; Scr just above 1.5 mg/dL however patient not meeting 1 of other 2 dose reduction criteria. Will alert AC provider for awareness. For ongoing monitoring, a population-based approach will be used to ensure safety, adherence to therapy, and appropriateness of prescribing. Periodic risk/benefit assessments will be performed as necessary. Time of review: 9 minutes /roberto/ JOSHUA SWIFT PHARMD, WILLIAMCP, CACP CLINICAL PHARMACY PRACTITIONER Signed: 11/28/2024 10:16 Receipt Acknowledged By: 11/28/2024 10:18 /kaylee Lane, Pharm.D., WILLIAMCP Clinical Pharmacist [facility]UA SWIFT [facility]
--- OUTSIDE RECORDS SUMMARY | 2024-12-05 06:00 | XMS_ITS | Encounter Summary ---
Author Name [facility] [place] [facility] [place] Address [address] [place] [address] Care Team Providers Care Meat Team Lead Name Role Phone SULMA GARRETT Primary Care [...] MEDIC ARE SUPPL EMENT Nov 23, 2010 [id number] [phone] PEGGY GUERRA PATIENT MEDICARE (WNR) MEDICARE (M) PART A Oct 23, 2010 PART A [id number] [phone] PEGGY GUERRA PATIENT MEDICARE (WNR) MEDICARE (M) PART B Oct 23, 2010 PART B [id number] PEGGY GUERRA PATIENT MEDICARE (WNR) MEDICARE (M) PART A Oct 23, 2010 PART A [id number] PEGGY GUERRA PATIENT MEDICARE (WNR) MEDICARE (M) PART B Oct 23, 2010 PART B [id number] [phone] PEGGY GUERRA PATIENT Selected Encounter This section includes the information on record at [place] for the Encounter. 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 This section includes future appointments and future orders which are active, pending or scheduled. Future Appointments This section includes appointments that were scheduled to occur 6 months from the date of the Encounter, up to a maximum of 20 appointments. The data comes from all [facility]. Appointment Date/Time Appointment Type Appointme nt Facility Name Jan 23, 2025 01:30 PM AMBULATORY - NONE [facility] Jan 23, 2025 01:31 PM AMBULATORY - NONE [facility] Jan 23, 2025 02:00 PM [facility] May 01, 2025 11:00 AM AMBULATORY - MEDICINE [facility] Active, Pending, and Scheduled Orders This section includes a listing of several types of active, pending, and scheduled orders, including clinic medications orders, diagnostic test orders, procedure orders and consult orders; where the start date of the order is 45 days before the date of the Encounter or 45 days after the date of theEncounter. The data comes from all [facility]. Test Date/Time Test Type Test Details Facility Name Jan 11, 2025 12:00 AM Laboratory - Chemi stry Order HGB,HCT,PLT BLOOD SP [facility] Jan 11, 2025 12:00 AM Laboratory - Chemi stry Order CREATININE(EGFR) GREEN LI/HEP BLD/PLAS PLASMA SP [facility] Jan 11, 2025 12:00 AM Laboratory - Chemi stry Order AST/SGOT GREEN LI/HEP BLD/PLAS PLASMA SP [facility] Jan 11, 2025 12:00 AM Laboratory - Chemi stry Order ALT/SGPT GREEN LI/HEP BLD/PLAS PLASMA SP [facility] Social History: Smoking Status (Most current) and Tobacco Use (All prior to encounter date) This section includes the most current, and the historical, smoking and tobacco- related health factors from the [place] facility where the Encounter took place. Current Smoking Status This section includes the most current smoking, or tobacco-related health factor, from the [place] facility where the Encounter took place. Date/Time Current Smoking Status Comment Facil ity Oct 28, 2022 10:00 AM VA-TOBACCO NEVER USED [facility] Tobacco Use History This section includes a history of the smoking, or tobacco-related health factors, that were collected on or before the date of the Encounter. The data comes from the [place] facility where the Encounter took place. Date/Time Smoking Status/Tobacco Use Comment F acility Oct 29, 2021 10:00 AM VA-TOBACCO NEVER USED [facility] Oct 23, 2020 10:00 AM VA-TOBACCO FORMER USER [facility] Oct 23, 2020 10:00 AM VA-TOBACCO QUIT 15 YRS OR MORE [facility] Oct 10, 2019 03:41 PM VA-TOBACCO FORMER USER [facility] Oct 10, 2019 03:41 PM VA-TOBACCO QUIT 15 YRS OR MORE [facility] Advance Directives: All historical and current Section Date Range: From patient's date of to the date document was created. This section includes ALL of a patient's completed or amended [place] Advance and Rescinded Directives. The entries below indicate that a directive exists for the patient, but an actual copy is not included with this document. The data comes from all [place] facilities. Date Advance Directives Provider Source Oct 28, 2019 ADVANCE DIRECTIVE DISCUSSION Onur SHERMAN [facility] Encounter Notes: All associated encounter notes This section contains the clinical notes associated to the Encounter. Date/Time Encounter Note(s) Provider Source Dec 05, 2024 11:18 AM PSYCHOLOGY OUTPATI ENT NOTE: LOCAL TITLE: PRIMARY CARE PSYCHOLOGY NOTE [facility] STANDARD TITLE: PSYCHOLOGY OUTPATIENT NOTE DATE OF NOTE: DEC 05, 2024@11:18 ENTRY DATE: DEC 05, 2024@11:18:54 AUTHOR: [place] MOHAN COSIGNER: URGENCY: STATUS: COMPLETED Follow-up Template NAME: NAVEEN GUERRA DATE OF : Oct TIME SPENT WITH PATIENT: 30 minutes DIAGNOSIS BEING TREATED: MDD, D/T Hearing Loss Adjustment Disorder w/Anxiety and depression CPT Code: 88702 NATURE OF ENCOUNTER: follow up visit SESSION FORMAT: [X] [id number] [ ] Video Telehealth [ ]Phone Confirmed [place]'s location and phone number for virtual appointment. [ ]Yes [ ]N/A NOTE: Use separate CVT template, if appropriate SESSION NUMBER: [id number] INTERVENTION/TREATMENT PROVIDED [X] [place] [X] Shared [...] to better understand current presenting concerns. - PA strategies to promote healthy lifestyle choices - Provided psychoeducation about CBT and the connection of thoughts and behaviors. RELEVANT HISTORICAL DEVELOPMENTS SINCE LAST CONTACT: NOTE: Describe relevant historical developments below Alanna had a slip and fall at work on 12/01/2024 on black ice and bruised himself pretty bad. hCerry reported his continues to improve. 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 Discussed how he mentally wants to continue to shovel his own driveway, but able to accept how physically it is not possible. Processed recently turning 79 yo. Processed work, and his family/work balance. Cherry continues to do well overall. Cherry continues to work with his [employer] and preparing to downsize. ASSESSMENT MEASURES USED: [ ] Measure in Mental Health Manager Of Quality. See accompanying Mental Health Diagnostic Study for details. [ ] Measure(s) sent via [facility], electronically following visit. agrees to asynchronous electronic administration; when returned, measure results will be included in a note or addendum in CPRS [ ] Other Measures: Measure: Score: Measure: Score: [ ] N/A: Not administered this session Date/Score of last administration: [X]Functional/Symptom Assessment: Symptom(s)/Function(s) tracked by mood on scale of 1-10 Changes in frequency, intensity or duration since last visit: 5- no change since last session. Collaboratively discussed outcomes related to assessment and treatment progress and measures will continue to be monitored. MEASURABLE TREATMENT GOALS FOR THIS EPISODE OF CARE: 1. GOAL/OBJECTIVES: improve overall mood which is impacted by hearing loss PROGRESS TOWARDS GOAL: vet verbalized having a safe space to vent and process does wonders for his depression. 2. GOAL/OBJECTIVES: PROGRESS TOWARDS GOAL: 3. GOAL/OBJECTIVES: PROGRESS TOWARDS GOAL: RESPONSE TO INTERVENTIONS: Veterans participation/engagement: [X]The [place] participated actively in the current interventions. [ ]Other: The continues to consent to the current plan of care: Yes Comments: RISK ASSESSMENT: [X] NO CHANGE IN RISK FACTORS Related to Suicide or Homicide. did not report any current suicidal/homicidal ideation, plan, or intent. Clyde did not appear to be at imminent risk for suicide or homicide at this time and is considered sustainable at the current level of care. [ ] NEW/UPDATED RISK ASSESSMENT: -RELEVANT RISK AND PROTECTIVE FACTORS: -IDEATION: [ ] denied current suicidal or homicidal ideation, plan, or intent. [ ] Suicidal or homicidal ideation/behavior WAS identified: vet endorsed fleeting ideations in the context of his -CLINICAL JUDGMENT AND DISPOSITION: [ ] In consideration of relevant risk and protective factors, the did NOT appear to be at imminent risk for suicide or homicide at this time and IS sustainable at the current level of care. -Comments: [ ] [place] IS considered to be at INCREASED RISK for suicide or homicide based upon: -Actions/interventions taken to address risk and prevent harm include: -Emergency protocols initiated were: -Comments: ASSIGNED WORK: RTC entered for ongoing support. COLLABORATIVE RECOMMENDATIONS/PLAN: Collaboratively discussed outcomes related to assessment and treatment progress. Based on this discussion: Vet agreed to ongoing services. /roberto/ [place] Mhoan, Psy.D. Staff Psychologist Signed: 12/05/2024 13:05 [place] MOHAN [facility]
--- OUTSIDE RECORDS SUMMARY | 2025-01-23 09:00 | XMS_ITS | Encounter Summary ---
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 Mechanic Name Role Phone SULMA GARRETT Primary Care [...] MEDIC ARE SUPPL EMENT Nov 23, 2010 [id number] [phone] PEGGY GUERRA PATIENT MEDICARE (WNR) MEDICARE (M) PART A Oct 23, 2010 PART A [id number] [phone] PEGGY GUERRA PATIENT MEDICARE (WNR) MEDICARE (M) PART B Oct 23, 2010 PART B [id number] PEGGY GUERRA PATIENT MEDICARE (WNR) MEDICARE (M) PART A Oct 23, 2010 PART A [id number] PEGGY GUERRA PATIENT MEDICARE (WNR) MEDICARE (M) PART B Oct 23, 2010 PART B [id number] [phone] PEGGY GUERRA PATIENT Selected Encounter This section includes the information on record at [place] for the Encounter. 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 This section includes future appointments and future orders which are active, pending or scheduled. Future Appointments This section includes appointments that were scheduled to occur 6 months from the date of the Encounter, up to a maximum of 20 appointments. The data comes from all [facility]. Appointment Date/Time Appointment Type Appointme nt Facility Name May 01, 2025 11:00 AM AMBULATORY - MEDICINE [facility] Jul 03, 2025 10:00 AM AMBULATORY - MEDICINE [facility] Active, Pending, and Scheduled Orders This section includes a listing of several types of active, pending, and scheduled orders, including clinic medications orders, diagnostic test orders, procedure orders and consult orders; where the start date of the order is 45 days before the date of the Encounter or 45 days after the date of theEncounter. The data comes from all [facility]. Test Date/Time Test Type Test Details Facility Name Jan 11, 2025 12:00 AM Laboratory - Chemi stry Order HGB,HCT,PLT BLOOD SP [facility] Jan 11, 2025 12:00 AM Laboratory - Chemi stry Order CREATININE(EGFR) GREEN LI/HEP BLD/PLAS PLASMA SP [facility] Jan 11, 2025 12:00 AM Laboratory - Chemi stry Order AST/SGOT GREEN LI/HEP BLD/PLAS PLASMA SP [facility] Jan 11, 2025 12:00 AM Laboratory - Chemi stry Order ALT/SGPT GREEN LI/HEP BLD/PLAS PLASMA SP [facility] Lab Results: +/- 30 days of the encounter This section includes the Chemistry and Hematology Lab Results on record with [place] for the patient. Radiology Reports and Pathology Reports are provided separately, in subsequent sections. Lab Results This section contains the Chemistry/Hematology Results that were resulted 30 days before or 30 daysafter the date of the Encounter. Date/Time Source Result Type Result - Unit Interpretation Reference Range Specimen Type Comment Jan 23, 2025 01:15 PM [facility] LIPID PANEL (STL) PLASMA Specimen Type: PLASMA Comment: No hemolysis noted. Ordering Provider: SULMA GARRETT Report Released Date/Time: Jan 23, 2025 01:06 PM Reporting Lab: [address] [phone] Performing Lab: [address] [phone] CHOLESTEROL 184 mg/dL 0-200 TRIGLYCERIDE 140 mg/dL 0-150 CALCULATED LDL 97 mg/dL HDL(New) 59 mg/dL >40 Jan 23, 2025 01:15 PM [facility] COMPREHENSIVE METABOLIC PANEL PLASMA Specimen Type: PLASMA Comment: No hemolysis noted. Ordering Provider: SULMA GARRETT Report Released Date/Time: Jan 23, 2025 01:06 PM Reporting Lab: [address] [address] Performing Lab: [address] [address] CREATININE 1.40 mg/dL H 0.7-1.3 UREA NITROGEN 31.0 mg/dL H 9.0-25.0 GLUCOSE 182 mg/dL H 72-99 SODIUM 138 meq/L 136-145 POTASSIUM 5.0 meq/L 3.5-5 CHLORIDE 108 meq/L H 98-107 CARBON DIOXIDE 17 meq/L L 22-31 CALCIUM 9.2 mg/dL 8.4-10.4 PROTEIN 7.7 g/dL 6-8.6 ALBUMIN 4.1 g/dL 3.4-5 TOTAL BILIRUBIN 0.5 mg/dL 0.2-1.2 ALKALINE PHOSPHATASE 73 U/L 40-150 AST/SGOT 18 U/L 5-34 ALT/SGPT 10 U/L 8-40 EGFR (CKD-EPI 2020) 51.1 >60 Jan 23, 2025 01:15 PM [facility] HGA1C BLOOD Specimen Type: BLOOD No comment entered. Ordering Provider: SULMA GARRETT Report Released Date/Time: Jan 23, 2025 01:06 PM Reporting Lab: [address] [address] Performing Lab: [address] [address] HGA1C 8.1 H 4.0-6.0 Jan 23, 2025 01:15 PM [facility] CBC BLOOD Specimen Type: BLOOD No comment entered. Ordering Provider: SULMA GARRETT Report Released Date/Time: Jan 23, 2025 01:06 PM Reporting Lab: [address] [address] Performing Lab: [address] [phone] WBC 7.8 10*3/uL 3.6-11.2 RBC 4.49 10*6/uL 4.10-5.70 HGB 14.4 g/dL 13.1-16.8 HCT 44.6 38.2-48.4 MCV 99.3 fL 80.0-100.0 MCH 32.1 pg 27.0-34.0 MCHC 32.3 g/dL L 33.0-36.0 PLT 319 10*3/uL 150-400 MPV 9.4 fL 7.5-11.2 RDW 13.0 11.8-15.1 LYMPHOCYTES, AUTO % 18 MONOCYTES, AUTO % 8 NEUTROPHILS, AUTO % 72 EOSINOPHILS, AUTO % 2 BASOPHILS, AUTO % 0 LYMPHOCYTES, ABSOLUTE 1.39 10*3/uL 0.77- 4.50 MONOCYTES, ABSOLUTE 0.61 10*3/uL 0.19-0. 80 NEUTROPHILS, ABSOLUTE 5.62 10*3/uL 2.10- 8.00 EOSINOPHILS, ABSOLUTE 0.13 10*3/uL 0.00- 0.60 BASOPHILS, ABSOLUTE 0.03 10*3/uL 0.00-0. 20 Jan 23, 2025 01:15 PM [facility] VITAMIN D, 25-HYDROXY SERUM Specime n Type: SERUM No comment entered. Ordering Provider: SULMA GARRETT Report Released Date/Time: Jan 23, 2025 01:06 PM Reporting Lab: [address] [address] Performing Lab: [address] [address] VITAMIN D, 25-HYDROXY 36.3 ng/mL 30-96 Jan 23, 2025 01:15 PM [facility] TSH W/ REFLEX FT4 (STL) PLASMA Speci men Type: PLASMA No comment entered. Ordering Provider: SULMA GARRETT Report Released Date/Time: Jan 23, 2025 01:06 PM Reporting Lab: [address] [phone] Performing Lab: [address] [address] TSH 1.164 u[IU]/mL 0.47-5 Jan 23, 2025 01:15 PM [facility] MICRAL/CREAT PROFILE (STL) URINE Specimen Typ e: URINE No comment entered. Ordering Provider: SULMA GARRETT Report Released Date/Time: Jan 23, 2025 01:06 PM Reporting Lab: [address] [address] Performing Lab: [address] [address] URINE ALBUMIN (PB-STL) 5.8 mg/L uACR (STL) 11 mg/g 0-29 CREATININE URINE/OTHERS 51.0 mg/dL L 63-16 6 Vital Signs: All taken on the encounter date This section contains inpatient and outpatient Vital Signs collected on the date of the Encounter. Date/Time Temperature Pulse Blood Pressure Respiratory Rate SP02 Pain Height Weight Body Mass Index Source Jan 23, 2025 01:36 PM 136/76 [facility] Jan 23, 2025 01:33 PM 97.6 68 137/74 [address] [facility] Social History: Smoking Status (Most current) and Tobacco Use (All prior to encounter date) This section includes the most current, and the historical, smoking and tobacco- related health factors from the [place] facility where the Encounter took place. Current Smoking Status This section includes the most current smoking, or tobacco-related health factor, from the [place] facility where the Encounter took place. Date/Time Current Smoking Status Comment Brandt ity Jan 23, 2025 01:30 PM VA-TOBACCO NEVER USED CIGARETTES [facility] Tobacco Use History This section includes a history of the smoking, or tobacco-related health factors, that were collected on or before the date of the Encounter. The data comes from the [place] facility where the Encounter took place. Date/Time Smoking Status/Tobacco Use Comment F acuvaldo Jan 23, 2025 01:30 PM VA-TOBACCO NEVER USED OTHER TYPE [facility] Oct 28, 2022 10:00 AM VA-TOBACCO NEVER USED [facility] Oct 29, 2021 10:00 AM VA-TOBACCO NEVER USED [facility] Oct 23, 2020 10:00 AM VA-TOBACCO FORMER USER [facility] Oct 23, 2020 10:00 AM VA-TOBACCO QUIT [address] [facility] Oct 10, 2019 03:41 PM VA-TOBACCO FORMER USER [facility] Oct 10, 2019 03:41 PM VA-TOBACCO QUIT [address] [facility] Advance Directives: All historical and current Section Date Range: From patient's date of to the date document was created. This section includes ALL of a patient's completed or amended [place] Advance and Rescinded Directives. The entries below indicate that a directive exists for the patient, but an actual copy is not included with this document. The data comes from all [place] facilities. Date Advance Directives Provider Source Oct 28, 2019 ADVANCE DIRECTIVE DISCUSSION Onur SHERMAN [facility] Encounter Notes: All associated encounter notes This section contains the clinical notes associated to the Encounter. Date/Time Encounter Note(s) Provider Source Jan 23, 2025 02:35 PM PSYCHOLOGY OUTPATI ENT NOTE: LOCAL TITLE: PRIMARY CARE PSYCHOLOGY NOTE ST[facility] STANDARD TITLE: PSYCHOLOGY OUTPATIENT NOTE DATE OF NOTE: JAN 23, 2025@14:35 ENTRY DATE: JAN 23, 2025@14:36:01 AUTHOR: IND[place] MOHAN EXP COSIGNER: URGENCY: STATUS: COMPLETED Follow-up Template NAME: NAVEEN GUERRA DATE OF : Oct TIME SPENT WITH PATIENT: 30 minutes DIAGNOSIS BEING TREATED: MDD, D/T Hearing Loss Adjustment Disorder w/Anxiety and depression CPT Code: 10579 NATURE OF ENCOUNTER: follow up visit SESSION FORMAT: [X] Opte-bi-Foko [ ] Video Telehealth [ ]Phone Confirmed [place]'s location and phone number for virtual appointment. [ ]Yes [ ]N/A NOTE: Use separate CVT template, if appropriate SESSION NUMBER: 14 INTERVENTION/TREATMENT PROVIDED [X] [place] [X] Shared [...] in interviewing to better understand current presenting concerns and how it can lead to fleeting SI. RELEVANT HISTORICAL DEVELOPMENTS SINCE LAST CONTACT: NOTE: Describe relevant historical developments below Alanna continues to recover from slip and fall in Nov 2024. Celeste reported his continues to improve. Discussed ongoing, but very few (less than 1x a month) fleeting SI tied to his exhaustion with working. Discussed cognitive traps which lead to ideations. Confirmed celeste has no intent or desire to harm himself. Tgt explained how his kimberley would not allow such thought to even fully form. Discussed gloom and doom/despair and best ways to work through these traps. ASSESSMENT MEASURES USED: [ ] Measure in Mental Health House Wrecker. See accompanying Mental Health Diagnostic Study for details. [ ] Measure(s) sent via [facility], electronically following visit. [place] agrees to asynchronous electronic administration; when returned, [...] and process does wonders for his depression. Tgt feels he is making progress overall as long as he is able to have monthly supportive sessions. 2. GOAL/OBJECTIVES: PROGRESS TOWARDS GOAL: 3. GOAL/OBJECTIVES: PROGRESS TOWARDS GOAL: RESPONSE TO INTERVENTIONS: Veterans participation/engagement: [X]The participated actively in the current interventions. [ ]Other: The [place] continues to consent to the current plan of care: Yes Comments: RISK ASSESSMENT: [X] NO CHANGE IN RISK FACTORS Related to Suicide or Homicide. [place] did not report any current suicidal/homicidal ideation, plan, or intent. did not appear to be at imminent risk for suicide or homicide at this time and is considered sustainable at the current level of care. Fleeting ideation occurred once since last session, with no plan, intent, or fully developed thought before dismissed. [ ] NEW/UPDATED RISK ASSESSMENT: -RELEVANT RISK AND PROTECTIVE FACTORS: -IDEATION: [ ] denied current suicidal or homicidal ideation, plan, or intent. [ ] Suicidal or homicidal ideation/behavior WAS identified: vet endorsed fleeting ideations in the context of his -CLINICAL JUDGMENT AND DISPOSITION: [ ] In consideration of relevant risk and protective factors, the [place] did NOT appear to be at imminent risk for suicide or homicide at this time and IS sustainable at the current level of care. -Comments: [ ] IS considered to be at INCREASED RISK for suicide or homicide based upon: -Actions/interventions taken to address risk and prevent harm include: -Emergency protocols initiated were: -Comments: ASSIGNED WORK: RTC entered for ongoing support. Discussed transfer of services, celeste continues to decline as he was transferred before and did not feel it was as beneficial. COLLABORATIVE RECOMMENDATIONS/PLAN: Collaboratively discussed outcomes related to assessment and treatment progress. Based on this discussion: Celeste agreed to ongoing services. /roberto/ [place] Mohan Psy.D. Staff Psychologist Signed: 01/23/2025 15:31 [place] MOHAN [facility]
--- OUTSIDE RECORDS SUMMARY | 2025-05-01 06:00 | XMS_ITS | Encounter Summary ---
Author Name [facility] [place] [facility] [place] [facility] [facility] [place] Address [address] [place] [address] Care Team Providers Care Well Puller Head Name Role Phone SULMA GARRETT Primary Care [...] MEDIC ARE SUPPL EMENT Nov 23, 2010 [id number] [phone] PEGGY GUERRA PATIENT MEDICARE (WNR) MEDICARE (M) PART A Oct 23, 2010 PART A [id number] PEGGY GUERRA PATIENT MEDICARE (WNR) MEDICARE (M) PART B Oct 23, 2010 PART B [id number] PEGGY GUERRA PATIENT MEDICARE (WNR) MEDICARE (M) PART A Oct 23, 2010 PART A [id number] [phone] PEGGY GUERRA PATIENT MEDICARE (WNR) MEDICARE (M) PART B Oct 23, 2010 PART B [id number] [phone] PEGGY GUERRA PATIENT Selected Encounter This section includes the information on record at [place] for the Encounter. 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 INDIA MOHAN Linda [facility] May 03, 2025 04:33 PM SECONDARY Adjustment disorder with mixed anxiety and depressed mood INDIA MOHAN [facility] Plan of Treatment: Future Appointments [...] Date/Time Appointment Type Appointme nt Facility Name Jul 03, 2025 10:00 AM AMBULATORY - MEDICINE [facility] Sep 18, 2025 10:00 AM AMBULATORY - MEDICINE [facility] Social History: Smoking Status (Most current) [...] Date/Time Current Smoking Status Comment Facil ity Jan 23, 2025 01:30 PM VA-TOBACCO NEVER USED CIGARETTES [facility] Tobacco Use History This section includes a history of the smoking, or tobacco-related health factors, that were collected on or before the date of the Encounter. The data comes from the [place] facility where the Encounter took place. Date/Time Smoking Status/Tobacco Use Comment F acility Jan 23, 2025 01:30 PM VA-TOBACCO NEVER USED OTHER TYPE [facility] Oct 28, 2022 10:00 AM VA-TOBACCO [facility] USED [facility] Oct 29, 2021 10:00 AM VA-TOBACCO NEVER USED [facility] Oct 23, 2020 10:00 AM VA-TOBACCO FORMER USER [facility] Oct 23, 2020 10:00 AM VA-TOBACCO QUIT 15 YRS OR MORE [facility] Oct 10, 2019 03:41 PM VA-TOBACCO FORMER USER [facility] Oct 10, 2019 03:41 PM VA-TOBACCO QUIT 15 YRS OR MORE [facility] Advance Directives: All historical and current Section Date Range: From patient's date of to the date document was created. This section includes ALL of a patient's completed or amended VA Advance and Rescinded Directives. The entries below indicate that a directive exists for the patient, but an actual copy is not included with this document. The data comes from all [place] facilities. Date Advance Directives Provider Source Oct 28, 2019 ADVANCE DIRECTIVE DISCUSSION Onur SHERMAN [facility] Encounter Notes: All associated encounter notes This section contains the clinical notes associated to the Encounter. Date/Time Encounter Note(s) Provider Source May 01, 2025 11:12 AM PSYCHOLOGY OUTPATI ENT NOTE: LOCAL TITLE: PRIMARY CARE PSYCHOLOGY NOTE ST STANDARD TITLE: PSYCHOLOGY OUTPATIENT NOTE DATE OF NOTE: MAY 01, 2025@11:12 ENTRY DATE: MAY 01, 2025@11:12:57 AUTHOR: INDIA MOHAN EXP COSIGNER: URGENCY: STATUS: COMPLETED Follow-up Template NAME: NAVEEN GUERRA DATE OF : Oct TIME SPENT WITH PATIENT: 30 minutes DIAGNOSIS BEING TREATED: MDD, D/T Hearing Loss Adjustment Disorder w/Anxiety and depression CPT Code: 66274 NATURE OF ENCOUNTER: follow up visit SESSION FORMAT: [X] [id number] [ ] Video Telehealth [ ]Phone Confirmed Crawford's location and phone number for virtual appointment. [...] CONTACT: NOTE: Describe relevant historical developments below repoted his hearing aids are still working as good as they can be. Celeste changes his batteries and filters weekly. Celeste has a new zero turn riding lawnmower. He reports this has been his fun relief and what has broguht him griselda. Celeste also reports having a new great granchild born- his first. Celeste reports his appetiate has been too good. Celeste reported still remaining very active with family and friends, and also exhausting himself. Discussed the importance of resting and the aging process. It was noted a lot of sores and scabs on his arms- celeste reports its due to the bloodthinners. Contestig recent claim decline0 due to inaccurare info repots. 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 ASSESSMENT MEASURES USED: [ ] Measure in Mental Health Assistant Professor Of Biology. See accompanying Mental Health Diagnostic Study for details. [ ] Measure(s) sent via [facility], electronically following visit. agrees to asynchronous electronic [...] and process does wonders for his depression. Celeste feels he is making progress overall as long as he is able to have monthly supportive sessions. 2. GOAL/OBJECTIVES: PROGRESS TOWARDS GOAL: 3. GOAL/OBJECTIVES: PROGRESS TOWARDS GOAL: RESPONSE TO INTERVENTIONS: Veterans participation/engagement: [X]The participated actively in the current interventions. [ ]Other: The Crawford continues to consent to the current plan of care: Yes Comments: RISK ASSESSMENT: [X] NO CHANGE IN RISK FACTORS Related to Suicide or Homicide. Crawford did not report any current suicidal/homicidal ideation, plan, or intent. Crawford did not appear to be at imminent [...] of relevant risk and protective factors, the Crawford did NOT appear to be at imminent [...] /roberto/ [place] Mohan Psy.D. Staff Psychologist Signed: 05/03/2025 16:33 IND[place] MOHAN [facility]
--- OUTSIDE RECORDS SUMMARY | 2025-05-04 04:20 | XMS_ITS ---
Author Organization [facility] Address [address] [place], [place] [id number] Care Team Providers Care Classifying Machine Operator Name Role Phone HAYDENMARINOIC Unavailable [phone] Yonas Chapa Unavailable Allergies No Known Allergies REASON FOR VISIT *General care Social History Tobacco Use: Social History Observation Description Date Details (start date - stop date) Never Smoker NA - NA Tobacco Use/Smoking Question Answer Notes Tobacco use: nonsmoker Vital Signs Height 68 in 05/04/2025 Weight 220 lbs 05/04/2025 BMI 33.45 kg/m2 05/04/2025 Height-cm 172.72 cm 05/04/2025 Weight-kg 99.79 kg 05/04/2025 Encounters Encounter Location Date Provider Diagnosis [facility] [place] [address] [place], [place] [id number] 05/04/2025 RADHA FORREST Onychomycosis B35.1 ; Pain in right toe(s) M79.674 ; Pain in left toe(s) M79.675 and Unspecified atherosclerosis of [place] arteries of extremities, bilateral legs I70.203 Assessments Encounter Date Diagnosis (ICD Code) Assessment Notes Treatment Notes Treatment Clinical Notes Section Notes 05/04/2025 Onychomycosis (ICD-10 - B35.1) 05/04/2025 Pain in right toe(s) (ICD-10 - M79.674) 05/04/2025 Pain in left toe(s) (ICD-10 - M79.675) 05/04/2025 Unspecified atherosclerosis of [place] arteries of extremities, bilateral legs (ICD-10 - I70.203) 05/04/2025 Other Nails 1-5 Bilateral were debrided extensively [...] Up: 9 weeks, Reason: Provider Name:RADHA BAXTER, 09/07/2025 08:20:00 AM, [address], [address], [id number], Progress Notes * LIANNANERY NAVEENDOB:[birth year] (79 yo M)Acc No.[id number]:05/04/2025 Patient: BUTCH VALENTINORD Provider: Beatrice Forrest DPM :1945 A ge:79 Y S ex:Male Date:05/04/2025 Address:[address] [place], [place] [id number] Subjective: * Chief Complaints: * 1 . *General care. * HPI: H PI: General care P atient presents to the office for diabetic foot care. Patient states that their nails are thickened, elongated and painful. Patient states that it is aggravated by shoe gear. Onset is gradual. Patient is taking prescription blood thinners. Date last seen by Dr. Chapa was 02/2025. Initials sea. * ROS: G eneral / [...] obacco Use/Smoking T obacco use: n onsmoker * Medications: N one * Allergies: N .K.D.A. Objective: * Vitals: S hoe Size: 10.5, Wt: 220 lbs, Wt-k.79 kg, Ht: 68 in, [...] M79.675 4 . U nspecified atherosclerosis of [place] arteries of extremities, bilateral legs - I70.203 Plan: * Treatment: * Procedure Codes: 1 1721 DEBRIDE NAIL, 6 OR MORE, Modifiers: Q8 * Follow Up: 9 weeks * Billing Information: * Visit Code: * Procedure Codes: 05831 DEBRIDE NAIL, 6 OR MORE. Modifiers: Q8 * Electronic signature of RADHA FORREST DPM on 07/26/2025 at 05:22 PM CDT Sign off status: Pending * Provider: Beatrice Forrest DPM Date: 0 05/04/2025 Generated for Ofelia sanches/Laverne/Stephanie on: 0 07/26/2025 05:22 PM CDT History and Physical Notes * HPI [...] Date last seen by Dr. Chapa was 02/2025. Initials sea Examination Category Sub-Category Detail Notes [...]
--- OUTSIDE RECORDS SUMMARY | 2025-07-03 05:00 | XMS_ITS | Encounter Summary ---
Author Name [facility] [place] [facility] [place] [facility] [place] Address [address] [place] [address] Care Team Providers Care Cleaner And Preparer Name Role Phone SULMA GARRETT Primary Care [...] MEDIC ARE SUPPL EMENT Nov 23, 2010 [id number] [phone] PEGGY GUERRA PATIENT MEDICARE (WNR) MEDICARE (M) PART A Oct 23, 2010 PART A [id number] PEGGY GUERRA PATIENT MEDICARE (WNR) MEDICARE (M) PART B Oct 23, 2010 PART B [id number] PEGGY GUERRA PATIENT MEDICARE (WNR) MEDICARE (M) PART A Oct 23, 2010 PART A [id number] PEGGY GUERRA PATIENT MEDICARE (WNR) MEDICARE (M) PART B Oct 23, 2010 PART B [id number] [phone] PEGGY GUERRA PATIENT Selected Encounter This section includes the [place] for [place]counter. 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 This section includes future appointments and future orders which are active, pending or scheduled. Future Appointments This section includes appointments that were scheduled to occur 6 months from the date of the Encounter, up to a maximum of 20 appointments. The data comes from all [place] treatment facilities. Appointment Date/Time Appointment Type Appointme nt Facility Name Sep 18, 2025 10:00 AM AMBULATORY - MEDICINE [facility] Social History: Smoking Status (Most current) and Tobacco Use (All prior to encounter date) This section includes the most current, and the historical, smoking and tobacco- related health factors from the [place] facility where the Encounter took place. Current Smoking Status This section includes the most current smoking, or tobacco-related health factor, from the [place] facility where the Encounter took place. Date/Time Current Smoking Status Comment Brandt ity Jan 23, 2025 01:30 PM VA-TOBACCO NEVER USED CIGARETTES [facility] Tobacco Use History This section includes a history of the smoking, or tobacco-related health factors, that were collected on or before the date of the Encounter. The data comes from the [place] facility where the Encounter took place. Date/Time Smoking Status/Tobacco Use Comment F acility Jan 23, 2025 01:30 PM VA-TOBACCO NEVER USED OTHER TYPE [facility] Oct 28, 2022 10:00 AM VA-TOBACCO NEVER USED [facility] Oct 29, 2021 10:00 AM [facility] Oct 23, 2020 10:00 AM VA-TOBACCO FOR[facility] Oct 23, 2020 10:00 AM VA-TOBACCO QUIT [address] [facility] Oct 10, 2019 03:41 PM VA-TOBACCO FORMER [facility] Oct 10, 2019 03:41 PM VA-TOBACCO QUIT 15 YRS OR MORE [facility] Advance Directives: All historical and current Section Date Range: From patient's date of to the date document was created. This section includes ALL of a patient's completed or amended [place] Advance and Rescinded Directives. The entries below indicate that a directive exists for the patient, but an actual copy is not included with this document. The data comes from all [place] facilities. Date Advance Directives Provider Source Oct 28, 2019 ADVANCE DIRECTIVE DISCUSSION Onur SHERMAN [facility] Encounter Notes: All associated encounter notes This section contains the clinical notes associated to the Encounter. Date/Time Encounter Note(s) Provider Source Jul 03, 2025 10:06 AM PSYCHOLOGY OUTPATI ENT NOTE: LOCAL TITLE: PRIMARY CARE PSYCHOLOGY NOTE [facility] STANDARD TITLE: PSYCHOLOGY OUTPATIENT NOTE DATE OF NOTE: JUL 03, 2025@10:06 ENTRY DATE: JUL 03, 2025@10:06:36 AUTHOR: INDIA MOHANIGNER: URGENCY: STATUS: COMPLETED Follow-up Template NAME: NAVEEN GUERRA DATE OF : Oct TIME SPENT WITH PATIENT: 30 minutes DIAGNOSIS BEING TREATED: MDD, D/T Hearing Loss Adjustment Disorder w/Anxiety and depression CPT Code: 91923 NATURE OF ENCOUNTER: follow up visit SESSION FORMAT: [X] [id number] [ ] Video Telehealth [ ]Phone Confirmed [place]'s location and phone number for virtual appointment. [ ]Yes [ ]N/A NOTE: Use separate CVT template, if appropriate SESSION NUMBER: [id number] INTERVENTION/TREATMENT PROVIDED [X] [facility] [X] Shared [...] CONTACT: NOTE: Describe relevant historical developments below 05/01/25: [place] reported his hearing aids are still working as good as they can be. Celeste changes his batteries and filters weekly. Celeste has a new zero turn riding lawnmower. He reports this has been his fun relief and what has brought him griselda. Celeste also reports having a new great grandchild born- his first. Celeste reports his appetite has been too good. Celeste reported still remaining very active with family and friends, and also exhausting himself. Discussed the importance of resting and the aging process. It was noted a lot of sores and scabs on his arms- celeste reports its due to the blood thinners. Contesting recent claim declined due to inaccurate info repots. 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 07/03/25: Celeste reported in July 29 he will be awarded the [employer] from the [employer]. 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 Celeste still pushes himself to do it in one day, versus breaking it down. When we discussed pacing, celeste says he's too stubborn to adjust his routine, because he has always finished it in one day over 6 hours- and does not want to consider age over time. Processed changes to his workplace, with everything being monitored and recorded- the added stress, and the irrational expectations have made the job more difficult for him. ASSESSMENT MEASURES USED: [ ] Measure in Mental Health Informatics Physician Liaison. See accompanying Mental Health Diagnostic Study for details. [ ] Measure(s) sent via [facility], electronically following visit. agrees to asynchronous [...] visit: 5- no change since last session. Reported mood as blah. Collaboratively discussed outcomes related to assessment and [...] GOAL: RESPONSE TO INTERVENTIONS: Veterans participation/engagement: [X]The [place] participated actively in the current interventions. [ [...] current level of care. -Comments: [ ] [place] IS considered to be at INCREASED RISK for suicide or homicide based upon: -Actions/interventions taken to address risk and prevent harm include: -Emergency protocols initiated were: -Comments: ASSIGNED WORK: RTC entered for ongoing support. Discussed transfer of services, [place] continues to decline as he was transferred before and did not feel it was as beneficial. COLLABORATIVE RECOMMENDATIONS/PLAN: Collaboratively discussed outcomes related to assessment and treatment progress. Based on this discussion: Vet agreed to ongoing services. /roberto/ [place] Mohan Psy.D. Staff Psychologist Signed: 07/06/2025 09:03 INDIA MOHAN [facility]
--- OUTSIDE RECORDS SUMMARY | 2025-07-06 03:20 | XMS_ITS ---
Author [facility] Address [address] [place], [place] [id number] Care Team Providers Care [employer] Secretary Name Role Phone CHERYRADHA BAXTER Unavailable [phone] Yonas Chapa Unavailable Unavailable Allergies No Known Allergies REASON FOR VISIT *General care Vital Signs Height 68 in 07/06/2025 Height-cm 172.72 cm 07/06/2025 Encounters Encounter Location Date Provider Diagnosis [facility] [place] [address] [place], [place] [id number] 07/06/2025 RADHA FORREST Onychomycosis B35.1 ; Pain in right toe(s) M79.674 ; Pain in left toe(s) M79.675 and Unspecified atherosclerosis of [place] arteries of extremities, bilateral legs I70.203 Assessments Encounter Date Diagnosis (ICD Code) Assessment Notes Treatment Notes Treatment Clinical Notes Section Notes 07/06/2025 Onychomycosis (ICD-10 - B35.1) 07/06/2025 Pain in right toe(s) (ICD-10 - M79.674) 07/06/2025 Pain in left toe(s) (ICD-10 - M79.675) 07/06/2025 Unspecified atherosclerosis of [place] arteries of extremities, bilateral legs (ICD-10 - I70.203) 07/06/2025 Other Nails 1-5 Bilateral were debrided extensively with nail nippers and emery board, reducing length and girth to pink healthy tissue with any subungual debris and necrotic tissue removed , Preventing Falls: Care Instructions material was published Plan Of Treatment Treatment Notes Assessment Notes Other Nails 1-5 Bilateral were debrided extensively with nail nippers and emery board, reducing length and girth to pink healthy tissue with any subungual debris and necrotic tissue removed , Preventing Falls: Care Instructions material was published Next Appt Details Follow Up: 9 weeks, Reason: Provider Name:RADHA Minda BAXTER, 09/07/2025 08:20:00 AM, [address], [address], [id number], Progress Notes * BUTCH GUERRAFLACADOB:[birth year] (79 yo M)Acc No.[id number]:07/06/2025 Patient: NAVEEN VALENTIN Provider: Beatrice Forrest DPM :1945 A ge:79 Y S ex:Male Date:07/06/2025 Address:[address] [place] [address] Subjective: * Chief Complaints: * 1 . *General care. * HPI: H PI: General care P atient presents to the office for diabetic foot care. Patient states that their nails are thickened, elongated and painful. Patient states that it is aggravated by shoe gear. Onset is gradual., Patient is taking prescription blood thinners., Date last seen by Dr. Chapa was November 2024., Initials JMR. * ROS: G eneral / Constitutional: Patient denies c hange in appetite, fatigue, chills, fever.? C ardiovascular: Chest pain d enies. N eurologic: Loss of use of extremity d enies. * Medical History: A rthritis, Cancer (type of cancer), Sleep apnea, Back Trouble, Diabetic, Hypertension. * Family History: F ather: unknown, Diabetic. M other: unknown, Diabetic. * Medications: N one * Allergies: N .K.D.A. Objective: * Vitals: H t: 68 in, Ht-cm: 172.72 cm. * Examination: P hysical Examination: Gen: T [...] M79.675 4 . U nspecified atherosclerosis of [place] arteries of extremities, bilateral legs - I70.203 Plan: * Treatment: * Immunizations: Immunization record has been reviewed and updated. * Procedure Codes: 1 1721 DEBRIDE NAIL, 6 OR MORE, Modifiers: Q8 * Preventive Medicine: Screenings: F all risk screening Fall Risk Assessment: O ne fall without injury in the past year Plan of Care: D ocumented Type of fall plan of care: B alance, strength and gait training or instruction provided * Follow Up: 9 weeks * Billing Information: * Visit Code: * Procedure Codes: 85326 DEBRIDE NAIL, 6 OR MORE. Modifiers: Q8 * Electronic signature of RADHA FORREST DPM on 07/26/2025 at 05:21 PM CDT Sign off status: Pending * Provider: Beatrice Forrest DPM Date: 0 07/06/2025 Generated for Ofelia sanches/Laverne/Stephanie on: 0 07/26/2025 05:21 PM CDT History and Physical Notes * [...] last seen by Dr. Chapa was November 2024., Initials JMR Examination Category Sub-Category Detail Notes Category Not [...]
--- OUTSIDE RECORDS SUMMARY | 2025-07-26 12:22 | XMS_ITS | Continuity of Care Document ---
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 It does not include entries that were removed or entered in error. Problem Status Onset Date Problem Type Date of Resolution Comments Source Atrial fibrillation Active Condition 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 [facility] Obesity Active Condition [facility] Obstructive sleep apnea syndrome Active Condition [facility] Sensory hearing loss Active Condition [facility] Diagnosis: ICD-10-CM 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 Diagnosis [facility] Diagnosis: ICD-10-CM Z51.81 Encounter for therapeutic drug level monitoring Active Diagnosis [facility] Diagnosis: ICD-10-CM I10 Essential (primary) hypertension Active Diagnosis [facility] Diagnosis: ICD-10-CM 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 Medication Details Route Status Patient Instructions Prescription Expires Prescription Number Last Dispense Date Ordering Provider Order Date Order Qty Source ACETAMINOPH EN 325MG TAB TAKE FOUR TABLETS BY MOUTH TWICE A DAY ORAL ACTIVE Minda CALDWELL 2021 [facility] CARVEDILOL 12.5MG TAB TAKE ONE-HALF TABLET BY MOUTH TWICE A DAY ORAL ACTIVE RADHA SCHULTZ 2018 [facility] EMPAGLIFLOZ IN 25MG TAB TAKE ONE TABLET BY MOUTH ONCE A DAY FOR DIABETES ORAL ACTIVE 12/27/2025 [id number] Tsering WALKER RIS J 2024 90 [facility] EMPAGLIFLOZ IN 25MG TAB TAKE ONE TABLET BY MOUTH ONCE A DAY FOR DIABETES ORAL DISCONT INUED 10/27/2024 [id number] Tsering WALKER RIS J 2023 90 [facility] ESCITALOPRA M OXALATE 20MG TAB TAKE ONE-HALF TABLET BY MOUTH ONCE A DAY FOR MOOD ORAL ACTIVE 12/27/2025 [id number] KATRINA GUTHRIE 2024 45 [facility] ESCITALOPRA M OXALATE 20MG TAB TAKE ONE-HALF TABLET BY MOUTH ONCE A DAY FOR MOOD ORAL DISCONT INUED 04/02/2025 [id number] RADHA SCHULTZ 2023 45 [facility] FLUTICASONE PROPIONATE 50MCG/SPRAY SOLN,NASAL, 16GM INSTILL 1 SPRAY IN EACH NOSTRIL ONCE A DAY NASAL RADHA CABRERA 2018 [facility] LISINOPRIL 20MG TAB TAKE ONE-HALF TABLET BY MOUTH ONCE A DAY ORAL ACTIVE RADHA SCHULTZ 2018 [facility] LOVASTATIN 40MG TAB TAKE ONE TABLET BY MOUTH EVERY EVENING ORAL ACTIVE RADHA SCHULTZ 2018 [facility] METFORMIN HCL 1000MG TAB TAKE ONE-HALF TABLET BY MOUTH TWICE A DAY WITH MEALS ORAL ACTIVE TAMI,VI NOD K 2024 [facility] MULTIVITAMI NS W/MINERALS CAP/TAB TAKE 1 CAP/TAB BY MOUTH ONCE A DAY ORAL ACTIVE Minda CALDWELL 2021 [facility] PROPAFENONE HCL 150MG TAB TAKE ONE TABLET BY MOUTH EVERY 8 HOURS ORAL ACTIVE RADHA SCHULTZ 2019 [facility] RIVAROXABAN 20MG TAB TAKE ONE TABLET BY MOUTH ONCE A DAY TO THIN BLOOD. TAKE WITH FOOD. ORAL ACTIVE 01/26/2026 [id number] CARRIE THOMAS 2024 90 [facility] RIVAROXABAN 20MG TAB TAKE ONE TABLET BY MOUTH ONCE A DAY TO THIN BLOOD. TAKE WITH FOOD. ORAL DISCONT INUED 07/08/2025 [id number] CARRIE THOMAS B 2023 90 [facility] SEMAGLUTIDE 0.25MG/0.37 5ML INJ,SOLN,PE N,3ML INJECT 0.5MG UNDER THE SKIN EVERY WEEK SUBCUT ANEOUS DISCONT INUED (EDIT) 07/19/2025 [id number] TAMI, NOD K 2023 3 [facility] SEMAGLUTIDE 0.25MG/0.37 5ML INJ,SOLN,PE N,3ML INJECT 0.5MG UNDER THE SKIN EVERY WEEK SUBCUT ANEOUS DISCONT INUED 03/10/2025 [id number] Tsering WALKER 2023 1 [facility] SEMAGLUTIDE 1MG/0.75ML INJ,SOLN,PE N,3ML INJECT 1MG UNDER THE SKIN EVERY WEEK FOR DIABETES SUBCUT ANEOUS ACTIVE 01/25/2026 [id number] TAMI, NOD K 2024 3 [facility] VITAMIN B COMPLEX CAP TAKE 1 CAPSULE BY MOUTH QAM ORAL ACTIVE Minda CALDWELL 2021 [facility] Immunizations Combined list of available immunizations from the Department of Defense and Veterans Affairs facilities. Immunization Series Date Given Administered By Site Reaction Lot Number CVX Code Drug Thai Masseur Status Comments Source INFLUENZA, UNSPECIFIED FORMULATION 2022 88 complet ed Completed Series, HISTORICA L INFORMATI ON - FROM OTHER REGISTRY, [facility] INFLUENZA, UNSPECIFIED FORMULATION 2020 88 complet ed [facility] ZOSTER RECOMBINANT 2 2020 187 complet ed [facility] ZOSTER RECOMBINANT 1 2019 187 complet ed [facility] INFLUENZA, UNSPECIFIED FORMULATION 2019 88 complet ed [facility] PNEUMOCOCCAL CONJUGATE PCV 13 2018 [address] [facility] INFLUENZA, UNSPECIFIED FORMULATION [address] [facility] PNEUMOCOCCAL POLYSACCHARID E PPV23 2018 33 complet ed [facility] TDAP 2014 115 complet ed [facility] INFLUENZA, UNSPECIFIED FORMULATION 2009 88 complet ed [facility] Results Combined list of [...] Jan 23, 2025 01:06 PM Reporting Lab: [facility] [address] [place], [place] [phone] Performing Lab: [facility] [address] [place] [address] [phone] [facility] LIPID PANEL (STL) TRIGLYCERID E [MASS/VOLUM E] IN SERUM OR PLASMA 140 mg/dL 0 - 150 01/23 Specimen Type: PLASMA Comment: No hemolysis noted. Ordering Provider: MISHA GARRETT OD Report Released Date/Time: Jan 23, 2025 01:06 PM Reporting Lab: [facility] [address] [place], [place] [phone] Performing Lab: [facility] [address] [place] [phone] [place] [address] [facility] LIPID PANEL (STL) CHOLESTEROL IN LDL [MASS/VOLUM E] IN SERUM OR PLASMA BY CALCULATION 97 mg/dL 01/23 Specimen Type: PLASMA Comment: No hemolysis noted. Ordering Provider: MISHA GARRETT OD Report Released Date/Time: Jan 23, 2025 01:06 PM Reporting Lab: [facility] [address] [place] [address] Performing Lab: [facility] [address] [place] [phone] [address] [facility] LIPID PANEL (STL) CHOLESTEROL IN HDL [MASS/VOLUM E] IN SERUM OR PLASMA 59 mg/dL 40 01/23 Specimen Type: PLASMA Comment: No hemolysis noted. Ordering Provider: MISHA GARRETT OD Report Released Date/Time: Jan 23, 2025 01:06 PM Reporting Lab: [place] [address] Performing Lab: [address] [facility] HGA1C HEMOGLOBIN A1C/HEMOGLO BIN.TOTAL IN BLOOD 8.1 4.0 - 6.0 01/23 H Specimen Type: BLOOD No comment entered. Ordering Provider: MISHA GARRETT OD Report Released Date/Time: Jan 23, 2025 01:06 PM Reporting Lab: [facility] [address] [place] [address] Performing Lab: [place] [phone] [facility] COMPREHENS PAULA METABOLIC PANEL CREATININE [MASS/VOLUM E] IN SERUM OR PLASMA 1.40 mg/dL 0.7 - 1.3 01/23 H Specimen Type: PLASMA Comment: No hemolysis noted. Ordering Provider: MISHA GARRETT OD Report Released Date/Time: Jan 23, 2025 01:06 PM Reporting Lab: [facility] [address] [place] [address] Performing Lab: [address] [phone] [facility] COMPREHENS PAULA METABOLIC PANEL UREA NITROGEN [MASS/VOLUM E] IN SERUM OR PLASMA 31.0 mg/dL 9.0 - 25.0 01/23 H Specimen Type: PLASMA Comment: No hemolysis noted. Ordering Provider: MISHA GARRETT OD Report Released Date/Time: Jan 23, 2025 01:06 PM Reporting Lab: [facility] [address] [place] [phone] Performing Lab: [facility] [address] [place] [phone] [facility] COMPREHENS PAULA METABOLIC PANEL GLUCOSE [MASS/VOLUM E] IN SERUM OR PLASMA 182 mg/dL 72 - 99 01/23 H Specimen Type: PLASMA Comment: No hemolysis noted. Ordering Provider: MISHA GARRETT OD Report Released Date/Time: Jan 23, 2025 01:06 PM Reporting Lab: [place] [address] [place] [address] Performing Lab: [place] [phone] [facility] COMPREHENS PAULA METABOLIC PANEL SODIUM [MOLES/VOLU ME] IN SERUM OR PLASMA 138 meq/L 136 - 145 01/23 Specimen Type: PLASMA Comment: No hemolysis noted. Ordering Provider: MISHA GARRETT OD Report Released Date/Time: Jan 23, 2025 01:06 PM Reporting Lab: [place] [phone] Performing Lab: [facility] [address] [place] [phone] [place] [address] [facility] COMPREHENS PAULA METABOLIC PANEL POTASSIUM [MOLES/VOLU ME] IN SERUM OR PLASMA 5.0 meq/L 3.5 - 5 01/23 Specimen Type: PLASMA Comment: No hemolysis noted. Ordering Provider: MISHA GARRETT OD Report Released Date/Time: Jan 23, 2025 01:06 PM Reporting Lab: [facility] [address] [place], [place] [phone] Performing Lab: [facility] [address] [place] [phone] [facility] COMPREHENS PAULA METABOLIC PANEL CHLORIDE [MOLES/VOLU ME] IN SERUM OR PLASMA 108 meq/L 98 - 107 01/23 H Specimen Type: PLASMA Comment: No hemolysis noted. Ordering Provider: MISHA GARRETT OD Report Released Date/Time: Jan 23, 2025 01:06 PM Reporting Lab: [place] [address] [facility] [phone] Performing Lab: [place] [address] [facility] [phone] [facility] COMPREHENS PAULA METABOLIC PANEL CARBON DIOXIDE, TOTAL [MOLES/VOLU ME] IN SERUM OR PLASMA 17 meq/L 22 - 31 01/23 L Specimen Type: PLASMA Comment: No hemolysis noted. Ordering Provider: MISHA GARRETT OD Report Released Date/Time: Jan 23, 2025 01:06 PM Reporting Lab: [place] [address] [place] [phone] Performing Lab: [place] [address] [facility] [phone] [facility] COMPREHENS PAULA METABOLIC PANEL CALCIUM [MASS/VOLUM E] IN SERUM OR PLASMA 9.2 mg/dL 8.4 - 10.4 01/23 Specimen Type: PLASMA Comment: No hemolysis noted. Ordering Provider: MISHA GARRETT OD Report Released Date/Time: Jan 23, 2025 01:06 PM Reporting Lab: [place] [address] [facility] [phone] Performing Lab: [place] [address] [facility] [phone] [facility] COMPREHENS PAULA METABOLIC PANEL PROTEIN [MASS/VOLUM E] IN SERUM OR PLASMA 7.7 g/dL 6 - 8.6 01/23 Specimen Type: PLASMA Comment: No hemolysis noted. Ordering Provider: MISHA GARRETT OD Report Released Date/Time: Jan 23, 2025 01:06 PM Reporting Lab: [place] [address] [facility] [phone] Performing Lab: [place] [address] [place] [address] [facility] COMPREHENS PAULA METABOLIC PANEL ALBUMIN [MASS/VOLUM E] IN SERUM OR PLASMA 4.1 g/dL 3.4 - 5 01/23 Specimen Type: PLASMA Comment: No hemolysis noted. Ordering Provider: MISHA GARRETT OD Report Released Date/Time: Jan 23, 2025 01:06 PM Reporting Lab: [place] [address] [place] [address] Performing Lab: [place] [address] [place] [phone] [facility] COMPREHENS PAULA METABOLIC PANEL BILIRUBIN.T OTAL [MASS/VOLUM E] IN SERUM OR PLASMA 0.5 mg/dL 0.2 - 1.2 01/23 Specimen Type: PLASMA Comment: No hemolysis noted. Ordering Provider: MISHA GARRETT OD Report Released Date/Time: Jan 23, 2025 01:06 PM Reporting Lab: [place] [address] [place] [address] Performing Lab: [place] [address] [facility] COMPREHENS PAULA METABOLIC PANEL ALKALINE PHOSPHATASE [ENZYMATIC ACTIVITY/VO LUME] IN SERUM OR PLASMA 73 U/L 40 - 150 01/23 Specimen Type: PLASMA Comment: No hemolysis noted. Ordering Provider: MISHA GARRETT OD Report Released Date/Time: Jan 23, 2025 01:06 PM Reporting Lab: [place] [address] [place] [address] Performing Lab: [place] [address] [place] [phone] [facility] COMPREHENS PAULA METABOLIC PANEL ASPARTATE AMINOTRANSF ERASE [ENZYMATIC ACTIVITY/VO LUME] IN SERUM OR PLASMA 18 U/L 5 - 34 01/23 Specimen Type: PLASMA Comment: No hemolysis noted. Ordering Provider: MISHA GARRETT OD Report Released Date/Time: Jan 23, 2025 01:06 PM Reporting Lab: [place] [address] [place] [address] Performing Lab: [address] [facility] COMPREHENS PAULA METABOLIC PANEL ALANINE AMINOTRANSF ERASE [ENZYMATIC ACTIVITY/VO LUME] IN SERUM OR PLASMA 10 U/L 8 - 40 01/23 Specimen Type: PLASMA Comment: No hemolysis noted. Ordering Provider: MISHA GARRETT OD Report Released Date/Time: Jan 23, 2025 01:06 PM Reporting Lab: [place] [address] Performing Lab: [address] [facility] COMPREHENS PAULA METABOLIC PANEL GLOMERULAR FILTRATION RATE/1.73 SQ M.PREDICTED [VOLUME RATE/AREA] IN SERUM, PLASMA OR BLOOD BY CREATININE- BASED FORMULA (CKD-EPI 2020) 51.1 60 01/23 Specimen Type: PLASMA Comment: No hemolysis noted. Ordering Provider: MISHA GARRETT OD Report Released Date/Time: Jan 23, 2025 01:06 PM Reporting Lab: [place] [address] Performing Lab: [address] [facility] VITAMIN D, 25-HYDROXY 25-HYDROXYV ITAMIN D3 [MASS/VOLUM E] IN SERUM OR PLASMA 36.3 ng/mL 30 - 96 01/23 Specimen Type: SERUM No comment entered. Ordering Provider: MISHA GARRETT OD Report Released Date/Time: Jan 23, 2025 01:06 PM Reporting Lab: [place] [address] Performing Lab: [address] [facility] CBC LEUKOCYTES [#/VOLUME] IN BLOOD BY AUTOMATED COUNT 7.8 10*3/u L 3.6 - 11.2 01/23 Specimen Type: BLOOD No comment entered. Ordering Provider: MISHA GARRETT OD Report Released Date/Time: Jan 23, 2025 01:06 PM Reporting Lab: [facility] [place] [phone] Performing Lab: [place] [phone] [facility] CBC ERYTHROCYTE S [#/VOLUME] IN BLOOD BY AUTOMATED COUNT 4.49 10*6/u L 4.10 - 5.70 01/23 Specimen Type: BLOOD No comment entered. Ordering Provider: MISHA GARRETT OD Report Released Date/Time: Jan 23, 2025 01:06 PM Reporting Lab: [place] [address] [place] [phone] Performing Lab: [address] [facility] CBC HEMOGLOBIN [MASS/VOLUM E] IN BLOOD 14.4 g/dL 13.1 - 16.8 01/23 Specimen Type: BLOOD No comment entered. Ordering Provider: MISHA GARRETT OD Report Released Date/Time: Jan 23, 2025 01:06 PM Reporting Lab: [place] [address] [place] [address] Performing Lab: [address] [facility] CBC HEMATOCRIT [VOLUME FRACTION] OF BLOOD 44.6 38.2 - 48.4 01/23 Specimen Type: BLOOD No comment entered. Ordering Provider: MISHA GARRETT OD Report Released Date/Time: Jan 23, 2025 01:06 PM Reporting Lab: [place] [address] [place] [address] Performing Lab: [place] [phone] [facility] CBC MCV [ENTITIC VOLUME] BY AUTOMATED COUNT 99.3 fL 80.0 - 100.0 01/23 Specimen Type: BLOOD No comment entered. Ordering Provider: MISHA GARRETT OD Report Released Date/Time: Jan 23, 2025 01:06 PM Reporting Lab: [facility] [address] [place] [phone] Performing Lab: [facility] [address] [facility] [phone] [facility] CBC MCH [ENTITIC MASS] BY AUTOMATED COUNT 32.1 pg 27.0 - 34.0 01/23 Specimen Type: BLOOD No comment entered. Ordering Provider: MISHA GARRETT OD Report Released Date/Time: Jan 23, 2025 01:06 PM Reporting Lab: [place] [address] [facility] [phone] Performing Lab: [place] [address] [facility] [phone] [facility] CBC MCHC [MASS/VOLUM E] BY AUTOMATED COUNT 32.3 g/dL 33.0 - 36.0 01/23 L Specimen Type: BLOOD No comment entered. Ordering Provider: MISHA GARRETT OD Report Released Date/Time: Jan 23, 2025 01:06 PM Reporting Lab: [place] [address] [facility] [phone] Performing Lab: [place] [address] [facility] [phone] [place] [address] [facility] CBC PLATELETS [#/VOLUME] IN BLOOD BY AUTOMATED COUNT 319 10*3/u L 150 - 400 01/23 Specimen Type: BLOOD No comment entered. Ordering Provider: MISHA GARRETT OD Report Released Date/Time: Jan 23, 2025 01:06 PM Reporting Lab: [place] [address] [facility] [phone] Performing Lab: [place] [address] [facility] [phone] [facility] CBC PLATELET MEAN VOLUME [ENTITIC VOLUME] IN BLOOD BY AUTOMATED COUNT 9.4 fL 7.5 - 11.2 01/23 Specimen Type: BLOOD No comment entered. Ordering Provider: MISHA GARRETT OD Report Released Date/Time: Jan 23, 2025 01:06 PM Reporting Lab: [place] [phone] Performing Lab: [facility] [address] [facility] [phone] [facility] CBC ERYTHROCYTE DISTRIBUTIO N WIDTH [RATIO] BY AUTOMATED COUNT 13.0 11.8 - 15.1 01/23 Specimen Type: BLOOD No comment entered. Ordering Provider: MISHA GARRETT OD Report Released Date/Time: Jan 23, 2025 01:06 PM Reporting Lab: [facility] [address] [place] [phone] Performing Lab: [facility] [address] [facility] [phone] [facility] CBC LYMPHOCYTES /100 LEUKOCYTES IN BLOOD BY AUTOMATED COUNT 18 01/23 Specimen Type: BLOOD No comment entered. Ordering Provider: MISHA GARRETT OD Report Released Date/Time: Jan 23, 2025 01:06 PM Reporting Lab: [place] [address] [place] [phone] Performing Lab: [place] [address] [place] [phone] [facility] CBC MONOCYTES/1 00 LEUKOCYTES IN BLOOD BY AUTOMATED COUNT 8 01/23 Specimen Type: BLOOD No comment entered. Ordering Provider: MISHA GARRETT OD Report Released Date/Time: Jan 23, 2025 01:06 PM Reporting Lab: [place] [address] [facility] [phone] Performing Lab: [place] [address] [facility] [phone] [facility] CBC NEUTROPHILS /100 LEUKOCYTES IN BLOOD BY AUTOMATED COUNT 72 01/23 Specimen Type: BLOOD No comment entered. Ordering Provider: MISHA GARRETT OD Report Released Date/Time: Jan 23, 2025 01:06 PM Reporting Lab: [place] [address] [facility] [phone] Performing Lab: [place] [address] [facility] [phone] [facility] CBC EOSINOPHILS /100 LEUKOCYTES IN BLOOD BY AUTOMATED COUNT 2 01/23 Specimen Type: BLOOD No comment entered. Ordering Provider: MISHA GARRETT OD Report Released Date/Time: Jan 23, 2025 01:06 PM Reporting Lab: [facility] [address] [place] [address] Performing Lab: [facility] [address] [place] [phone] [facility] CBC BASOPHILS/1 00 LEUKOCYTES IN BLOOD BY AUTOMATED COUNT 0 01/23 Specimen Type: BLOOD No comment entered. Ordering Provider: MISHA GARRETT OD Report Released Date/Time: Jan 23, 2025 01:06 PM Reporting Lab: [facility] [place] [address] Performing Lab: [facility] [address] [facility] CBC LYMPHOCYTES [#/VOLUME] IN BLOOD BY AUTOMATED COUNT 1.39 10*3/u L 0.77 - 4.50 01/23 Specimen Type: BLOOD No comment entered. Ordering Provider: MISHA GARRETT OD Report Released Date/Time: Jan 23, 2025 01:06 PM Reporting Lab: [facility] [address] [place] [address] Performing Lab: [facility] [place] [phone] [facility] CBC MONOCYTES [#/VOLUME] IN BLOOD BY AUTOMATED COUNT 0.61 10*3/u L 0.19 - 0.80 01/23 Specimen Type: BLOOD No comment entered. Ordering Provider: MISHA GARRETT OD Report Released Date/Time: Jan 23, 2025 01:06 PM Reporting Lab: [facility] [address] [place] [address] Performing Lab: [facility] [address] [place] [address] [facility] CBC NEUTROPHILS [#/VOLUME] IN BLOOD BY AUTOMATED COUNT 5.62 10*3/u L 2.10 - 8.00 01/23 Specimen Type: BLOOD No comment entered. Ordering Provider: MISHA GARRETT OD Report Released Date/Time: Jan 23, 2025 01:06 PM Reporting Lab: [place] [address] Performing Lab: [place] [phone] [facility] CBC EOSINOPHILS [#/VOLUME] IN BLOOD BY AUTOMATED COUNT 0.13 10*3/u L 0.00 - 0.60 01/23 Specimen Type: BLOOD No comment entered. Ordering Provider: MISHA GARRETT OD Report Released Date/Time: Jan 23, 2025 01:06 PM Reporting Lab: [place] [address] Performing Lab: [address] [facility] CBC BASOPHILS [#/VOLUME] IN BLOOD BY AUTOMATED COUNT 0.03 10*3/u L 0.00 - 0.20 01/23 Specimen Type: BLOOD No comment entered. Ordering Provider: MISHA GARRETT OD Report Released Date/Time: Jan 23, 2025 01:06 PM Reporting Lab: [place] [address] Performing Lab: [address] [facility] TSH W/ REFLEX FT4 (STL) THYROTROPIN [UNITS/VOLU ME] IN SERUM OR PLASMA 1.164 u[IU]/ mL 0.47 - 5 01/23 Specimen Type: PLASMA No comment entered. Ordering Provider: MISHA GARRETT OD Report Released Date/Time: Jan 23, 2025 01:06 PM Reporting Lab: [place] [address] Performing Lab: [address] [facility] MICRAL/CRE AT PROFILE (STL) ALBUMIN [MASS/VOLUM E] IN URINE 5.8 mg/L 01/23 Specimen Type: URINE No comment entered. Ordering Provider: MISHA GARRETT OD Report Released Date/Time: Jan 23, 2025 01:06 PM Reporting Lab: [facility] [address] [place], [place] [phone] Performing Lab: [facility] [address] [place] [phone] [facility] MICRAL/CRE AT PROFILE (STL) ALBUMIN/CRE ATININE [MASS RATIO] IN URINE 11 mg/g 0 - 29 01/23 Specimen Type: URINE No comment entered. Ordering Provider: MISHA GARRETT OD Report Released Date/Time: Jan 23, 2025 01:06 PM Reporting Lab: [address] [phone] Performing Lab: [address] [phone] [place] [address] [facility] MICRAL/CRE AT PROFILE (STL) CREATININE [MASS/VOLUM E] IN URINE 51.0 mg/dL 63 - 166 01/23 L Specimen Type: URINE No comment entered. Ordering Provider: MISHA GARRETT OD Report Released Date/Time: Jan 23, 2025 01:06 PM Reporting Lab: [facility] [address] [place] [phone] Performing Lab: [address] [phone] [facility] LIPID PANEL (STL) CHOLESTEROL [MASS/VOLUM E] IN SERUM OR PLASMA 149 mg/dL 0 - 200 10/27 Specimen Type: PLASMA Comment: No hemolysis noted. Ordering Provider: ARYAN WALKER Report Released Date/Time: Oct 27, 2023 10:27 AM Reporting Lab: [facility] [address] [place], [place] [phone] Performing Lab: [address] [phone] [facility] LIPID PANEL (STL) TRIGLYCERID E [MASS/VOLUM E] IN SERUM OR PLASMA 215 mg/dL 0 - 150 10/27 H Specimen Type: PLASMA Comment: No hemolysis noted. Ordering Provider: ARYAN WALKER Report Released Date/Time: Oct 27, 2023 10:27 AM Reporting Lab: [address] [phone] Performing Lab: [facility] [address] [place] [phone] [facility] LIPID PANEL (STL) CHOLESTEROL IN LDL [MASS/VOLUM E] IN SERUM OR PLASMA BY CALCULATION 69 mg/dL 10/27 Specimen Type: PLASMA Comment: No hemolysis noted. Ordering Provider: ARYAN WALKER Report Released Date/Time: Oct 27, 2023 10:27 AM Reporting Lab: [address] [address] Performing Lab: [address] [address] [facility] LIPID PANEL (STL) CHOLESTEROL IN HDL [MASS/VOLUM E] IN SERUM OR PLASMA 37 mg/dL 40 10/27 L Specimen Type: PLASMA Comment: No hemolysis noted. Ordering Provider: ARYAN WALKER Report Released Date/Time: Oct 27, 2023 10:27 AM Reporting Lab: [address] [address] Performing Lab: [address] [address] [facility] COMPREHENS PAULA METABOLIC PANEL CREATININE [MASS/VOLUM E] IN SERUM OR PLASMA 1.43 mg/dL 0.7 - 1.3 10/27 H Specimen Type: PLASMA Comment: No hemolysis noted. Ordering Provider: ARYAN WALKER Report Released Date/Time: Oct 27, 2023 10:27 AM Reporting Lab: [address] [address] Performing Lab: [address] [address] [facility] COMPREHENS PAULA METABOLIC PANEL UREA NITROGEN [MASS/VOLUM E] IN SERUM OR PLASMA 24.6 mg/dL 9.0 - 25.0 10/27 Specimen Type: PLASMA Comment: No hemolysis noted. Ordering Provider: ARYAN WALKER Report Released Date/Time: Oct 27, 2023 10:27 AM Reporting Lab: [place] [address] [facility] [address] Performing Lab: [address] [address] [facility] COMPREHENS PAULA METABOLIC PANEL GLUCOSE [MASS/VOLUM E] IN SERUM OR PLASMA 105 mg/dL 72 - 99 10/27 H Specimen Type: PLASMA Comment: No hemolysis noted. Ordering Provider: ARYAN WALKER Report Released Date/Time: Oct 27, 2023 10:27 AM Reporting Lab: [address] [address] Performing Lab: [address] [address] [facility] COMPREHENS PAULA METABOLIC PANEL SODIUM [MOLES/VOLU ME] IN SERUM OR PLASMA 139 meq/L 136 - 145 10/27 Specimen Type: PLASMA Comment: No hemolysis noted. Ordering Provider: ARYAN WALKER Report Released Date/Time: Oct 27, 2023 10:27 AM Reporting Lab: [address] [address] Performing Lab: [address] [address] [facility] COMPREHENS PAULA METABOLIC PANEL POTASSIUM [MOLES/VOLU ME] IN SERUM OR PLASMA 5.4 meq/L 3.5 - 5 10/27 H Specimen Type: PLASMA Comment: No hemolysis noted. Ordering Provider: ARYAN WALKER Report Released Date/Time: Oct 27, 2023 10:27 AM Reporting Lab: [address] [address] Performing Lab: [address] [address] [facility] COMPREHENS PAULA METABOLIC PANEL CHLORIDE [MOLES/VOLU ME] IN SERUM OR PLASMA 110 meq/L 98 - 107 10/27 H Specimen Type: PLASMA Comment: No hemolysis noted. Ordering Provider: ARYAN WALKER Report Released Date/Time: Oct 27, 2023 10:27 AM Reporting Lab: [address] [address] Performing Lab: [address] [address] [facility] COMPREHENS PAULA METABOLIC PANEL CARBON DIOXIDE, TOTAL [MOLES/VOLU ME] IN SERUM OR PLASMA 19 meq/L 22 - 31 10/27 L Specimen Type: PLASMA Comment: No hemolysis noted. Ordering Provider: ARYAN WALKER Report Released Date/Time: Oct 27, 2023 10:27 AM Reporting Lab: [address] [address] Performing Lab: [address] [address] [facility] COMPREHENS PAULA METABOLIC PANEL CALCIUM [MASS/VOLUM E] IN SERUM OR PLASMA 9.4 mg/dL 8.4 - 10.4 10/27 Specimen Type: PLASMA Comment: No hemolysis noted. Ordering Provider: ARYAN WALKER Report Released Date/Time: Oct 27, 2023 10:27 AM Reporting Lab: [address] [address] Performing Lab: [address] [address] [facility] COMPREHENS PAULA METABOLIC PANEL PROTEIN [MASS/VOLUM E] IN SERUM OR PLASMA 7.9 g/dL 6 - 8.6 10/27 Specimen Type: PLASMA Comment: No hemolysis noted. Ordering Provider: ARYAN WALKER Report Released Date/Time: Oct 27, 2023 10:27 AM Reporting Lab: [address] [place] [address] Performing Lab: [place] [address] [facility] [address] [facility] COMPREHENS PAULA METABOLIC PANEL ALBUMIN [MASS/VOLUM E] IN SERUM OR PLASMA 4.5 g/dL 3.4 - 5 10/27 Specimen Type: PLASMA Comment: No hemolysis noted. Ordering Provider: ARYAN WALKER Report Released Date/Time: Oct 27, 2023 10:27 AM Reporting Lab: [place] [address] [facility] [address] Performing Lab: [address] [phone] COMPREHENS PAULA METABOLIC PANEL BILIRUBIN.T OTAL [MASS/VOLUM E] IN SERUM OR PLASMA 0.3 mg/dL 0.2 - 1.2 10/27 Specimen Type: PLASMA Comment: No hemolysis noted. Ordering Provider: ARYAN WALKER Report Released Date/Time: Oct 27, 2023 10:27 AM Reporting Lab: [place] [address] [facility] [address] Performing Lab: [place] [address] [facility] [address] [facility] COMPREHENS PAULA METABOLIC PANEL ALKALINE PHOSPHATASE [ENZYMATIC ACTIVITY/VO LUME] IN SERUM OR PLASMA 51 U/L 40 - 150 10/27 Specimen Type: PLASMA Comment: No hemolysis noted. Ordering Provider: ARYAN WALKER Report Released Date/Time: Oct 27, 2023 10:27 AM Reporting Lab: [place] [address] [facility] [address] Performing Lab: [address] [address] [facility] COMPREHENS PAULA METABOLIC PANEL ASPARTATE AMINOTRANSF ERASE [ENZYMATIC ACTIVITY/VO LUME] IN SERUM OR PLASMA 15 U/L 5 - 34 10/27 Specimen Type: PLASMA Comment: No hemolysis noted. Ordering Provider: ARYAN WALKER Report Released Date/Time: Oct 27, 2023 10:27 AM Reporting Lab: [facility] [address] [place] [phone] Performing Lab: [facility] [address] [place] [address] [facility] COMPREHENS PAULA METABOLIC PANEL ALANINE AMINOTRANSF ERASE [ENZYMATIC ACTIVITY/VO LUME] IN SERUM OR PLASMA 8 U/L 8 - 40 10/27 Specimen Type: PLASMA Comment: No hemolysis noted. Ordering Provider: ARYAN WALKER Report Released Date/Time: Oct 27, 2023 10:27 AM Reporting Lab: [address] [address] Performing Lab: [phone] [place] [address] COMPREHENS PAULA METABOLIC PANEL GLOMERULAR FILTRATION RATE/1.73 SQ M.PREDICTED [VOLUME RATE/AREA] IN SERUM, PLASMA OR BLOOD BY CREATININE- BASED FORMULA (CKD-EPI 2020) 50.5 60 10/27 Specimen Type: PLASMA Comment: No hemolysis noted. Ordering Provider: ARYAN WALKER Report Released Date/Time: Oct 27, 2023 10:27 AM Reporting Lab: [facility] [address] [place] [phone] Performing Lab: [facility] [address] [place] [address] [facility] MICRAL/CRE AT PROFILE (STL) ALBUMIN [MASS/VOLUM E] IN URINE 12.3 mg/L 10/27 Specimen Type: URINE No comment entered. Ordering Provider: ARYAN WALKER Report Released Date/Time: Oct 27, 2023 10:27 AM Reporting Lab: [facility] [address] [place] [phone] Performing Lab: [facility] [address] [place] [phone] [facility] MICRAL/CRE AT PROFILE (STL) ALBUMIN/CRE ATININE [MASS RATIO] IN URINE 12 mg/g 0 - 29 10/27 Specimen Type: URINE No comment entered. Ordering Provider: ARYAN WALKER Report Released Date/Time: Oct 27, 2023 10:27 AM Reporting Lab: [facility] [address] [facility] [address] Performing Lab: [facility] [address] [address] [facility] MICRAL/CRE AT PROFILE (STL) CREATININE [MASS/VOLUM E] IN URINE 106.8 mg/dL 63 - 166 10/27 Specimen Type: URINE No comment entered. Ordering Provider: ARYAN WALKER Report Released Date/Time: Oct 27, 2023 10:27 AM Reporting Lab: [place] [address] [address] [facility] [address] Performing Lab: [facility] [address] [address] [facility] Vital Signs Combined list of inpatient and outpatient Vital Signs from Department of Defense and Veterans Affairs, ranging from 12 months to all on record, depending upon the facility. Vital Sign Value Date Comments Source SYSTOLIC BLOOD PRESSURE 137 01/23/2025 13:33:55 [facility] DIASTOLIC BLOOD PRESSURE 74 01/23/2025 13:33:55 [facility] PULSE OXIMETRY 95 01/23/2025 13:33:55 [facility] WEIGHT 216 01/23/2025 13:33:55 [facility] BMI 33 kg/m2 01/23/2025 13:33:55 [facility] PAIN 0 01/23/2025 13:33:55 [facility] HEIGHT 68 01/23/2025 13:33:55 [facility] TEMPERATURE 97.6 01/23/2025 13:33:55 [facility] PULSE 68 01/23/2025 13:33:55 [facility] RESPIRATION 18 01/23/2025 13:33:55 [facility] Encounters Combined list of: 1) Encounters from Department of [place] [facility] facilities going backup to the last 18 months, not all VA inpatient encounters are included; 2) Encounters from the Department of [facility] [place] facilities going backup to 280 months. 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 Ephraim Guerrier 03/07 [facility] PSYTX W PT 30 MINUTES [id number] Diagnos is: ICD-10- CM 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 pEhraim MOHAN 04/11 [facility] PSYTX W PT 30 MINUTES [id number] Diagnos is: ICD-10- CM F06.4 Anxiety disorde r due to known physiol ogical conditi on Ephraim MOHAN 06/20 [facility] Outpatient Encounter [id number] 06/27 [facility] MTMS BY PHARM EST 15 MIN [id number] Diagnos is: ICD-10- CM Z51.81 Encount er for therape utic drug level monitor RENATA Torres 07/07 [facility] Outpatient Encounter [id number] 07/08 [facility] Outpatient Encounter [id number] 07/18 [facility] PSYTX W PT 30 MINUTES [id number] Diagnos is: ICD-10- CM 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 Ephraim MOHAN ARVTsering 08/15 [facility] Outpatient Encounter [id number] 09/19 [facility] MIN[facility]ES [id number] Diagnos is: ICD-10- CM 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 Ephraim MOHAN ARVA 12/05 [facility] Outpatient Encounter [id number] SHANT LOPEZ L 12/23 [facility] Outpatient Encounter [id number] JAZMYN TRAORE GGY 12/26 [facility] NQHP OL DIG ASSMT&MGMT 5-10 [id number] Diagnos is: ICD-10- CM Z51.81 Encount er for therape utic drug level monitor ALONSO Nichole 12/30 [facility] Outpatient Encounter [id number] 01/04 [facility] FEE [id number] Diagnos is: ICD-10- CM I10 Essenti al (primar y) hyperte nsion TAMI,MISHA OD K 01/23 [facility] A[facility]-VIDE O EST MOD 30 [id number] Diagnos is: ICD-10- CM I10 Essenti al (primar y) hyperte nsion TAMI,MISHA OD K 01/23 [facility] PSYTX W PT 30 MINUTES [id number] Diagnos is: ICD-10- CM 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 KIMBERLEEEphraim ARVA 01/23 [facility] MTMS BY PHARM EST 15 MIN [id number] Diagnos is: ICD-10- CM Z51.81 Encount er for therape utic drug level monitor RENATA Torres 01/25 [facility] Outpatient Encounter [id number] 01/30 [facility] PSYTX W PT 30 MINUTES [id number] Diagnos is: ICD-10- CM 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 Social History Type Response Date Comment Sourc e Tobacco smoking status NHIS VA-TOBACCO NEVER USED OTHER TYPE 01/23/2025 [facility] History of tobacco use VA-TOBACCO NEVER USED CIGARETTES 01/23/2025 [facility] History of tobacco use VA-TOBACCO NEVER USED 10/23/2023 [facility] History of tobacco use VA-TOBACCO NEVER USED 10/28/2022 [facility] History of tobacco use VA-TOBACCO NEVER USED 10/29/2021 [facility] History of tobacco use VA-TOBACCO FORMER USER 10/23/2020 [facility] History of tobacco use ND-TOBACCO QUIT 15 YRS OR MORE 10/10/2019 [facility] Plan of Care List of future care activities from [facility] facilities. Additional future care activities may be listed in the Assessment and Plan section. Date/Time Care Activity Care Activity Detail Facili ty 09/18/2025 AMBULATORY - MEDICINE AMBULATORY - MEDICI [facility] Advance Directives List of completed, amended, or rescinded Advance Directives on record at Department of [facility] facilities. An actual copy of the Directive is not included. Date Advance Directive Provider Source 10/28/2019 ADVANCE DIRECTIVE DISCUSSION Onur SHERMAN [facility]
--- NOTE | 2025-07-26 17:19 | ED.SKABFB ---
HPI - Skin/Abscess/Foreign Bdy General Chief complaint: Skin/Abscess/Foreign Body Stated complaint: Insect Bite/Left Leg Time Seen by Provider: 07/26/25 17:39 Source: patient and RN notes reviewed Mode of arrival: ambulatory Limitations: dementia History of Present Illness HPI narrative: 79-year-old male presents concern for a red area on his right thigh. Reports on Thursday he noticed it was itchy, he said this morning when he woke up he noticed a lump, the area was red and swollen. He denies general malaise, fever, aches, chills, sweats. Denies drainage from the area. Reports he was working in the [employer] on Thursday. MD complaint: other (Redness) Related Data Home Medications ?Medication ?Instructions ?Recorded ?Confirmed ?Last Taken ?Type lovastatin 40 mg tablet 40 mg PO QPM 03/19/20 02/28/25 Unknown History propafenone 150 mg tablet 150 mg PO TID 03/19/20 02/28/25 Unknown History rivaroxaban 20 mg tablet (Xarelto) 20 mg PO DAILY 03/19/20 02/28/25 Unknown History carvedilol 6.25 mg tablet 12.5 mg PO Q12H 02/26/21 02/28/25 Unknown History escitalopram oxalate 10 mg tablet 10 mg PO DAILY 07/29/22 02/28/25 Unknown History empagliflozin 25 mg tablet 25 mg PO DAILY 11/25/22 02/28/25 Unknown History lisinopril 20 mg tablet mg 07/26/25 Unknown History Allergies Allergy/AdvReac Type Severity Reaction Status Date / Time No Known Allergies Allergy Verified 07/26/25 17:36 Review of Systems Review of Systems: CONSTITUTIONAL: Denies malaise, chills, sweats, or fever. EYES: Denies redness, or discharge. ENT: Denies rhinorrhea, congestion, swollen lips, swollen tongue CARDIOVASCULAR: Denies chest pain, palpitations, or edema. RESPIRATORY: Denies cough or dyspnea. GASTROINTESTINAL: Denies abdominal pain, nausea, vomiting SKIN: Reports redness, swelling on the right thigh. Denies purulent drainage, vesicles, bullae, numbness, pain beyond proportion MUSCULOSKELETAL: Denies joint pain or myalgia. NEUROLOGIC: Denies headache. All systems reviewed & are unremarkable except as noted in HPI and below PMFSH Past Medical History Medical History Skin cancer basal cell carcinoma Atrial fibrillation Peripheral neuropathy Pure hypercholesterolemia, unspecified Type 2 diabetes mellitus with hyperglycemia, without long-term current use of insulin Hypertension Visual loss Hearing loss Surgical History Surgical History History of vasovasostomy Status post surgical removal of malignant neoplasm of skin x2 Family History Family History Father Family history of diabetes mellitus in first degree relative Family history of heart disease in male family member before age 55 Mother Family history of diabetes mellitus in first degree relative Sibling Family history of diabetes mellitus in first degree relative Social History Social History Smoking status: Never smoker Second hand tobacco smoke exposure: No Alcohol intake: current Alcohol use details: special occasions Substance use: never Do You Feel Safe in your Home?: Yes Lack of Transportation: No Lack of Food: Never True Current Housing: I Have Housing Concerned About Future Housing: No Difficulty Paying Gas/Electric Bills: No Difficulty Paying for Meds: No Currently Unemployed: No Education: Bachelor's Degree Difficulty w/ Childcare or Family Care: No Comments At time of signature, agree with nursing past medical, surgical, social and family history. There is no relevant family history pertinent to the presenting complaint Exam Narrative: GENERAL: Well-appearing, well-nourished, and in no acute distress. HEAD: Normocephalic, atraumatic. EYES: PERRLA, conjunctivae clear ENT: Mucous membranes moist. NECK: Supple. No lymphadenopathy CHEST: Clear to auscultation. No respiratory distress. HEART: Regular rate and rhythm. SKIN: Warm, dry. 13cm area of Erythema, induration, tenderness, warmth with sharp margins noted to the right thigh without fluctuation. No vesicles, bullae, necrosis, ecchymosis, crepitus noted. NEURO: Alert and oriented x3. PSYCH: Normal mood and affect Course Course Emergency Course: Patient is aware of diagnosis, understands and agrees to treatment plan. Anticipatory guidance given. Patient agrees to follow-up as directed and is aware of reasons to seek care at the emergency department. Portions of this record may have been created with voice recognition software Level of Care: Express Care Visit Vital Signs Vital signs: Reviewed. MDM - Skin/Abscess/Foreign Bdy MDM Narrative Medical decision making narrative: I evaluated this in the [facility] care. History is obtained from patient who is an independent historian and physical exam was performed.? Available medical records were reviewed. ? Exam findings and relevant testing show no acute concerns or changes; patient is non-toxic appearing and is in no distress. Does not appear at this time to be erythema multiforme, bullous, SJS, TEN; no evidence at this time to suggest RMSF, NSTI, endocarditis or Lyme disease; patient looks well, nontoxic and is tolerating oral intake; no neurologic signs or symptoms; no headache, photophobia or neck pain; afebrile.? Patient does not have history of of penetrating trauma, laceration, blunt trauma, recent surgery, immunosuppression, malignancy, obesity, alcoholism, corticosteroid use.? Discussed the importance of follow-up, patient agrees; question, cellulitis versus necrotizing soft tissue infection versus abscess.?? Patient is appropriate for outpatient treatment and follow-up. Critical Care Time Critical Care Time Critical Care Time: No Discharge Plan Discharge Clinical Impression: Cellulitis Patient Disposition: Home Condition: Stable Instructions: Antibiotic Form, Cellulitis (ED) Additional Instructions: Please follow up with your Primary Care Doctor. Rest and elevate affected area; apply moist heat 3-4 times daily for 10-15 minutes. Take Motrin 600mg every 8 hours with food for pain. Please take Antibiotics as directed. If you experience any worsening redness, swelling, streaking (red lines), fever or chills please go to the ER Patient Language: Spanish Prescriptions: New cephalexin 500 mg capsule 500 mg PO QID 10 Days Qty: 40 0RF No Action lisinopril 20 mg tablet empagliflozin 25 mg tablet 25 mg PO DAILY Ozempic 1 mg/dose (4 mg/3 mL) pen injector 1 mg subcut WEEKLY 90 Days Qty: 9 4RF Xarelto 20 mg tablet 20 mg PO DAILY Rx Instructions: must administer with evening meal propafenone 150 mg tablet 150 mg PO TID Rx Instructions: space evenly during waking hours lovastatin 40 mg tablet 40 mg PO QPM carvedilol 6.25 mg tablet 12.5 mg PO Q12H Rx Instructions: must administer with a meal/food escitalopram oxalate 10 mg tablet 10 mg PO DAILY metformin 500 mg tablet 500 mg PO BID Qty: 180 2RF Rx Instructions: WITH MEALS (DME) FreeStyle Lite Strips Strip See Rx Instructions .ROUTE .COMPLEX Qty: 100 1RF Dose Instruction: USE TO CHECK BLOOD SUGAR TWICE DAILY Rx Instructions: USE TO CHECK BLOOD SUGAR Once DAILY Follow-up/Referrals: UNKNOWN,DOCTOR [Primary Care Provider]
--- OUTSIDE RECORDS SUMMARY | 2025-07-26 17:22 | XMS_ITS | Clinical Summary ---
Author Organization [facility] Address [address] [place] [address] Care Team Providers Care Command Center Officer Name Role Phone Jose Melton MD Unavailable [phone] Yonas Chapa MD Primary Care Provider [phone] Source Comments [facility],non-owned Affiliates and Associated Physician Practices is amultiple site organization consisting of ambulatory clinics and hospital sitesin [place], [place], [place] and [place]. This disclosure is being madepursuant to the Care Everywhere program and may not contain all information available regarding this patient. Last updated 18.[facility] Allergies No known active allergies Medications * Be aware that medications may not be up to date on this document. Alwaysverify current medications with the patient. glyburide-metfo rmin (GLUCOVANCE) 2.5-500 MG tablet Take 1 (one) [...] BY MOUTH TWICE DAILY 180 tablet 3 7 Active Additional Information Patient not taking.Reported on 07/18/2024 rivaroxaban (XARELTO) 20 MG tablet TAKE ONE TABLET BY MOUTH ONCE A DAY TO THIN BLOOD. TAKE WITH FOOD. 9 Active amiodarone (CORDARONE) 200 MG tablet TAKE ONE-HALF TABLET BY MOUTH ONCE A DAY 9 Active carvedilol (COREG) 12.5 MG tablet TAKE ONE-HALF TABLET BY MOUTH TWICE A DAY 9 Active fluticasone propionate (FLONASE) 50 MCG/ACT nasal spray INSTILL 1 SPRAY IN EACH NOSTRIL ONCE A DAY 9 Active propafenone (RYTHMOL) 150 MG tablet Take 1 (one) tablet by mouth 3 times daily 0 Active Semaglutide(0.2 5 or 0.5MG/DOS) 2 MG/3ML Solution Pen-injector SEMAGLUTIDE 0.25MG/0.375ML INJ,SOLN,PEN,3ML Active INJECT 0.5MG UNDER THE SKIN EVERY WEEK FOR DIABETES Mar 09, 2024 1 Mar 10, 2025 [id number] May 30, 2024 [facility] 4 Active FREESTYLE LITE STRIPS test strip USE TO MONITOR BLOOD SUGAR ONCE DAILY 4 Active escitalopram (Lexapro) 20 MG tablet Take 0.5 (one-half) tablet by mouth 4 Active empagliflozin (Jardiance) 25 MG tablet Take 1 (one) tablet by mouth 3 Active Active Problems Problem Noted Date Diagnosed Date Obstructive sleep apnea syndrome 09/05/2020 Atrial fibrillation 09/05/2020 Health education 09/05/2020 Encounter for therapeutic drug level monitoring 09/05/2020 Benign essential hypertension 09/05/2020 Hyperlipidemia 09/05/2020 Obesity 09/05/2020 Sensory hearing loss 09/05/2020 Hypertension 04/08/2014 Overview (09/05/2020): HYPERTENSION NOS Pure hypercholesterolemia 04/08/2014 Overview (09/05/2020): PURE HYPERCHOLESTEROLEM Type 2 diabetes mellitus 04/08/2014 Overview (09/05/2020): DMII WO CMP NT ST UNCNTR Social History Tobacco Use Types Packs/Day Years Used Date Smoking Tobacco: Never Smokeless Tobacco: Never Tobacco Cessation:Counseling Given: Not Answered Alcohol Use Standard Drinks/Week Comments No 0 (1 standard drink = 0.6 oz pur e alcohol) PHQ-2 Answer Date Recorded Patient Health Questionnaire-2 Score 3 07/18/2024 Sex and Gender Information Value Date Recorded Sex Assigned at Not on file Legal Sex Male 4:59 AM CHIEF RADIATION THERAPIST Gender Identity Not on file Sexual Orientation Not on file Last Filed Vital Signs Vital Sign Reading Time Taken Comments Blood Pressure 160/80 09/05/2020 8:04 AM CDT Pulse 68 09/05/2020 8:04 AM CDT Temperature 36.4 C (97.6 F) 12/29/2013 9:00 AM CHIEF RADIATION THERAPIST Respiratory Rate 20 12/29/2013 9:25 AM CHIEF RADIATION THERAPIST Oxygen Saturation 92% 12/29/2013 9:25 AM CHIEF RADIATION THERAPIST Inhaled Oxygen Concentration - - Weight 95.3 kg (210 lb) 07/18/2024 9:36 AM CDT Height 172.7 cm (5' 8) 07/18/2024 9:36 AM CDT Body Mass Index 31.93 07/18/2024 9:36 AM CDT Plan of Treatment Upcoming Encounters Date Type Department Care Team (Late st Contact Info) Description 07/31/2025 11:30 AM CDT Office Visit [facility] [address] [place] [address] Veronika Ortega, [place] [address] [place] [address] Health Maintenance Due Date Last [...] yrs (1 - 1-dose 75+ series) 2020 DEPRESSION SCREENING 11/23/2024 DIABETES - URINE PROTEIN SCREENING 11/23/2024 COVID-19 VACCINE ( - season) 2025 INFLUENZA VACCINE (#1) 2025 3, 09/16/2021, 10/03/2020, Additional history exists HEPATITIS B [...] on patient's age to complete this topic Insurance MEDICARE [facility] [place] [id number] MEDICARE [facility] Care Teams Command Center Officer Relationship Specialty Start Date End Date Yonas Chapa MD [address] [facility] [address] [place] [address] PCP - General 09/05/20 [place] [address] [facility] [address] [place] [address] Orthopedic Surgery 09/09/16
--- OUTSIDE RECORDS SUMMARY | 2025-07-26 17:22 | XMS_ITS | Patient Health Record ---
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 Name Role Phone RADHA BLAKE Unavailable [phone] Yonas Chapa Unavailable Allergies No Known Allergies Reason For Referral No Information Social History Tobacco Use: Social History Observation Description Date Details (start date - stop date) Never Smoker NA - NA Tobacco Use/Smoking Question Answer Notes Tobacco use: nonsmoker Vital Signs Height-cm 172.72 cm 07/06/2025 Weight-kg 99.79 kg 05/04/2025 Height 68 in 07/06/2025 Weight 220 lbs 05/04/2025 BMI 33.45 kg/m2 05/04/2025 Encounters Encounter Location Date Provider Diagnosis [facility] [address] [place] [address] [id number] 05/04/2025 RADHA BLAKE Onychomycosis B35.1 ; Pain in right toe(s) M79.674 ; Pain in left toe(s) M79.675 and Unspecified atherosclerosis of [place] arteries of extremities, bilateral legs I70.203 [facility] [address] [place], [place] [id number] 07/06/2025 RADHA BLAKE Onychomycosis B35.1 ; Pain in right toe(s) M79.674 ; Pain in left toe(s) M79.675 and Unspecified atherosclerosis of [place] arteries of extremities, bilateral legs I70.203 [facility] [address] [place], [place] [id number] 08/04/2024 RADHA BLAKE Onychomycosis B35.1 ; Pain in right toe(s) M79.674 ; Pain in left toe(s) M79.675 and Unspecified atherosclerosis of [place] arteries of extremities, bilateral legs I70.203 [facility] [place] [address] [address] [place] [id number] 10/06/2024 RADHAADDI BLAKE Onychomycosis B35.1 ; Pain in right toe(s) M79.674 ; Pain in left toe(s) M79.675 and Unspecified atherosclerosis of [place] arteries of extremities, bilateral legs I70.203 [facility] [address] [place] [id number] 12/22/2024 RADHAADDI BLAKE Onychomycosis B35.1 ; Pain in right toe(s) M79.674 ; Pain in left toe(s) M79.675 and Unspecified atherosclerosis of [place] arteries of extremities, bilateral legs I70.203 [facility] [address] [place] [id number] 02/23/2025 RADHAADDI BLAKE Onychomycosis B35.1 ; Pain in right toe(s) M79.674 ; Pain in left toe(s) M79.675 and Unspecified atherosclerosis of [place] arteries of extremities, bilateral legs I70.203 Assessments Encounter Date Diagnosis (ICD Code) Assessment Notes Treatment Notes Treatment Clinical Notes Section Notes 08/04/2024 Onychomycosis (ICD-10 - B35.1) 10/06/2024 Onychomycosis (ICD-10 - B35.1) 12/22/2024 Onychomycosis (ICD-10 - B35.1) 02/23/2025 Onychomycosis (ICD-10 - B35.1) 05/04/2025 Onychomycosis (ICD-10 - B35.1) 07/06/2025 Onychomycosis (ICD-10 - B35.1) 07/06/2025 Pain in right toe(s) (ICD-10 - M79.674) 05/04/2025 Pain in right toe(s) (ICD-10 - M79.674) 02/23/2025 Pain in right toe(s) (ICD-10 - M79.674) 12/22/2024 Pain in right toe(s) (ICD-10 - M79.674) 10/06/2024 Pain in right toe(s) (ICD-10 - M79.674) 08/04/2024 Pain in right toe(s) (ICD-10 - M79.674) 08/04/2024 Pain in left toe(s) (ICD-10 - M79.675) 10/06/2024 Pain in left toe(s) (ICD-10 - M79.675) 12/22/2024 Pain in left toe(s) (ICD-10 - M79.675) 02/23/2025 Pain in left toe(s) (ICD-10 - M79.675) 05/04/2025 Pain in left toe(s) (ICD-10 - M79.675) 07/06/2025 Pain in left toe(s) (ICD-10 - M79.675) 07/06/2025 Unspecified atherosclerosis of [place] arteries of extremities, bilateral legs (ICD-10 - I70.203) 05/04/2025 Unspecified atherosclerosis of [place] arteries of extremities, bilateral legs (ICD-10 - I70.203) 02/23/2025 Unspecified atherosclerosis of [place] arteries of extremities, bilateral legs (ICD-10 - I70.203) 12/22/2024 Unspecified atherosclerosis of [place] arteries of extremities, bilateral legs (ICD-10 - I70.203) 10/06/2024 Unspecified atherosclerosis of [place] arteries of extremities, bilateral legs (ICD-10 - I70.203) 08/04/2024 Unspecified atherosclerosis of [place] arteries of extremities, bilateral legs (ICD-10 - I70.203) 05/04/2025 Other Nails 1-5 Bilateral were debrided extensively with nail nippers and emery board, reducing length and girth to pink healthy tissue with any subungual debris and necrotic tissue removed 07/06/2025 Other Nails 1-5 Bilateral were debrided extensively with nail nippers and emery board, reducing length and girth to pink healthy tissue with any subungual debris and necrotic tissue removed , Preventing Falls: Care Instructions material was published 08/04/2024 Other Nails 1-5 Bilateral were debrided [...] any subungual debris and necrotic tissue removed 02/23/2025 Other Nails 1-5 Bilateral were debrided extensively with nail nippers and emery board, reducing length and girth to pink healthy tissue with any subungual debris and necrotic tissue removed Plan Of Treatment Next Appt Details Provider Name:RADHA Minda BAXTER, 09/07/2025 08:20:00 AM, [address], [facility], [place], [place], [id number], Insurance Providers Payer Name Payer Address Payer Phone Subscriber Number Group Number Insured Name Patient Relationship to Insured Coverage Start Date Coverage End Date Medicare Part B [facility] [place] [address] [place] [phone] [id number] NAVEEN GUERRA Self - patient is the insured [employer] [address] [place] [address] [id number] NAVEEN GUERRA Self - patient is the insured Medical (General) History Medical History History ICD Code Arthritis Cancer (type of cancer) Sleep apnea Back Trouble Diabetic hypertension
[2025-07-26 17:26] VITALS: BP 121/73; PULSE 81; RESP 18; TEMP 36.8; O2SAT 97
== END 2025-07-26 17:49 | disposition home or self-care (01) ==
PROVIDERS: Emergency Provider Nurse Practitioner
DX: L03.115 Cellulitis of right lower limb (principal); I48.91 Unspecified atrial fibrillation; I10 Essential (primary) hypertension; E11.9 Type 2 diabetes mellitus without complications; Z85.828 Personal history of other malignant neoplasm of skin
CPT/HCPCS: 99213; G0463